=== PATIENT | male | born 1965 | race American Indian/Alaskan Native ===

== ENCOUNTER 2019-02-06 20:46 | Observation (INO) | payer MEDICARE, OTHER ==
--- NOTE | 2019-02-06 21:42 | Emergency Department Report ---
Blank Doc - Documentation Documentation: 53 y/o male with anemia recent kidney removal 2019, CKD, DM, Kidney CA. C/O s ob, weakness, pale sob
[2019-02-06 21:58] LABS: Basophils # (Auto) 0.1 K/mm3 (0.0-0.1); Basophils % (Auto) 0.9 % (0.0-1.8); Eosinophils # (Auto) 0.1 K/mm3 (0.0-0.4); Eosinophils % (Auto) 2.1 % (0.0-4.3); Hematocrit 22.2 % (35.5-45.6); Hemoglobin 7.4 gm/dl (11.8-15.2); Lymphocytes # (Auto) 0.6 K/mm3 (1.2-5.4); Lymphocytes % (Auto) 8.6 % (13.4-35.0); Mean Corpuscular HGB Conc 33 % (32-34); Mean Corpuscular Volume 92 fl (84-94); Monocytes # (Auto) 0.6 K/mm3 (0.0-0.8); Monocytes % (Auto) 8.9 % (0.0-7.3); Platelet Count 191 K/mm3 (140-440); Red Blood Count 2.43 M/mm3 (3.65-5.03); Red Cell Distribution Width 19.8 % (13.2-15.2)
[2019-02-06 22:17] LABS: Alanine Aminotransferase 9 units/L (7-56); Albumin 4.4 g/dL (3.9-5); BUN/Creatinine Ratio 8; Blood Urea Nitrogen 72 mg/dL (9-20); Calcium 10.4 mg/dL (8.4-10.2); INR 1.09 (0.87-1.13)
[2019-02-06 22:18] LABS: Partial Thromboplastin Time 40.3 Sec. (24.2-36.6)
[2019-02-06] MEDS ORDERED: NACL 0.9% 500 ML 500 ML IV ONE (23:04)
--- NOTE | 2019-02-06 23:15 | Emergency Department Report ---
HPI - General Chief Complaint: Recheck/Abnormal Lab/Rx Time Seen by Provider: 02/06/19 22:48 - HPI HPI: Room 4 The patient is a 53-year-old male presenting with a chief complaint of weakness. The patient has a history of end-stage renal disease in addition to renal CA. The patient states since July she showed progressive weakness and dizziness. Patient admits to shortness of breath and intermittent chest pain but cannot remember the last time he had chest pain. The patient had blood drawn 2 days ago and received a call today from his assistant softball coach at his hemoglobin was 6.5. Location: [See above] Duration: Months Quality: Fatigue Severity: Moderate Modifying factors: [see above] Context: [see above] Mode of transportation: [not driving] ED Past Medical Hx - Past Medical History Hx Diabetes: Yes Hx Renal Disease: Yes (ESRD. Home hemodialysis) Hx of Cancer: Yes (renal CA) Additional medical history: Kidney [id number] - Surgical History Past Surgical History?: No Additional Surgical History: kidney, tonsillectomy, left rotator cuff,knee - Family History Family history: no significant - Social History Smoking Status: Never Smoker Substance Use Type: None (denies illicit drug use) ED Review of Systems ROS: Stated complaint: HEMOGLOBIN 6.5 Other details as noted in HPI Constitutional: weakness Eyes: denies: eye pain ENT: denies: throat pain Respiratory: shortness of breath Cardiovascular: chest pain Endocrine: no symptoms reported Gastrointestinal: denies: abdominal pain Genitourinary: denies: testicular pain Neurological: other (dizziness) Physical Exam - Physical Exam Vital Signs: Vital Signs 02/06/19 02/06/19 02/06/19 21:34 22:59 23:09 Temperature 98.9 F 97.6 F Pulse Rate 99 H 89 Respiratory 18 20 Rate Blood Pressure 172/79 Blood Pressure 194/82 [Right] O2 Sat by Pulse 95 99 99 Oximetry Physical Exam: GENERAL: The patient is well-developed well-nourished male lying on stretcher appearing fatigued. [] HEENT: Normocephalic. Atraumatic. Extraocular motions are intact. Patient has moist mucous membranes. NECK: Supple. Trachea midline CHEST/LUNGS: Clear to auscultation. There is no respiratory distress noted. HEART/CARDIOVASCULAR: Regular. There is no tachycardia. There is no gallop rub or murmur. ABDOMEN: Abdomen is soft, nontender. Patient has normal bowel sounds. There is no abdominal distention. SKIN: There is no rash. There is no edema. There is no diaphoresis. NEURO: The patient is awake, alert, and oriented. The patient is cooperative. The patient has normal speech MUSCULOSKELETAL: There is no evidence of acute injury. ED Course Vital Signs 02/06/19 02/06/19 02/06/19 21:34 22:59 23:09 Temperature 98.9 F 97.6 F Pulse Rate 99 H 89 Respiratory 18 20 Rate Blood Pressure 172/79 Blood Pressure 194/82 [Right] O2 Sat by Pulse 95 99 99 Oximetry - Consultations Consultation #1: 02/06/19 23:11 Nephrology paged ED Medical Decision Making - Lab Data Result diagrams: 02/06/19 21:47 02/06/19 21:47 Laboratory Tests 02/06/19 02/06/19 02/06/19 21:47 21:47 21:47 WBC 6.8 RBC 2.43 L Hgb 7.4 L Hct 22.2 L MCV 92 MCH 31 MCHC 33 RDW 19.8 H Plt Count 191 Lymph % (Auto) 8.6 L Dickinson % (Auto) 8.9 H Eos % (Auto) 2.1 Baso % (Auto) 0.9 Lymph # 0.6 L Dickinson # 0.6 Eos # 0.1 Baso # 0.1 Seg Neutrophils % 79.5 H Seg Neutrophils # 5.4 PT 14.8 INR 1.09 APTT 40.3 H Sodium 138 Potassium 5.3 H Chloride 91.9 L Carbon Dioxide 28 Anion Gap 23 BUN 72 H Creatinine 9.2 H Estimated GFR 6 BUN/Creatinine Ratio 8 Glucose 124 H Calcium 10.4 H Total Bilirubin 0.20 AST 10 ALT 9 Alkaline Phosphatase 90 Total Protein 7.3 Albumin 4.4 Albumin/Globulin Ratio 1.5 Blood Type Antibody Screen Crossmatch 02/06/19 21:47 WBC RBC Hgb Hct MCV MCH MCHC RDW Plt Count Lymph % (Auto) Dickinson % (Auto) Eos % (Auto) Baso % (Auto) Lymph # Dickinson # Eos # Baso # Seg Neutrophils % Seg Neutrophils # PT INR APTT Sodium Potassium Chloride Carbon Dioxide Anion Gap BUN Creatinine Estimated GFR BUN/Creatinine Ratio Glucose Calcium Total Bilirubin AST ALT Alkaline Phosphatase Total Protein Albumin Albumin/Globulin Ratio Blood Type A POSITIVE Antibody Screen Negative Crossmatch See Detail - Differential Diagnosis symptomatic anemia Critical care attestation.: If time is entered above; I have spent that time in minutes in the direct care of this critically ill patient, excluding procedure time. ED Disposition Clinical Impression: Symptomatic anemia, Hyperkalemia, End stage renal disease Disposition: OP ADMIT IP TO THIS HOSP Is pt being admited?: Yes Does the pt Need Aspirin: No Condition: Fair Time of Disposition: 23:48 (hospitalist notified (Dr. Elizabeth Kowalski))
[2019-02-06] MEDS ORDERED: NACL 0.9% 100 ML IV PRN (23:37)
[2019-02-06] MEDS ORDERED: NORCO 5/325 PO ONE (23:39)
--- NOTE | 2019-02-06 23:42 | History and Physical Report ---
History of Present Illness Date of examination: 02/06/19 History of present illness: 53-year-old male with a history of end-stage renal disease on dialysis every other day, hypertension, history of renal and colon cancer was sent to the emergency room by the nephrologists for hemoglobin of 6.5, blood work was drawn on Wednesday. He is chronic generalized weakness, tiredness. Also complaining of chest pain in the epigastric area, less than 1 day, no radiation, intensity 4/10, no radiation,he had a stress test this year which was negative.Review of systems Constitutional: no weight loss, chills, fever Ears, eyes, nose, mouth and throat: no nasal congestion, no nasal discharge, no sinus pressure, no vision change, no red eye. Neck: No neck pain or rigidity. Cardiovascular: no palpitations, chest pain Respiratory: no cough, shortness of breath Gastrointestinal: no hematochezia, abdominal pain Genitourinary : no frequency , no hematuria Musculoskeletal: no joint swelling or muscle ache Integumentary: no rash, no pruritis Neurological: no parathesias, no focal weakness Endocrine: no cold or heat intolerance, no polyuria or polydipsia Hematologic/Lymphatic: no easy bruising, no easy bleeding, no gland swelling Allergic/Immunologic: no urticaria, no angioedema. PAST MEDICAL HISTORY:end-stage renal disease on dialysis every other day, hypertension, history of renal and colon cancer PAST SURGICAL HISTORY: Left nephrectomy, tonsillectomy SOCIAL HISTORY: Denies alcohol, drugs, tobacco FAMILY HISTORY: Hypertension Medications and Allergies Allergies Allergy/AdvReac Type Severity Reaction Status Date / Time lisinopril Allergy Unknown Verified 02/06/19 20:59 metformin [From Glucophage] Allergy Diarrhea Verified 02/06/19 20:59 Home Medications Medication Instructions Recorded Confirmed Last Taken Type Calcitriol [Rocaltrol] 0.5 mcg PO BID 02/07/19 02/07/19 Unknown History Cholecalciferol (Vitamin D3) 2,000 unit PO BID 02/07/19 02/07/19 Unknown History [Vitamin D3 2,000 UNIT CHEW TAB] Clonidine HCl [Kapvay] 0.1 mg PO ONCE 02/07/19 02/07/19 Unknown History Gabapentin [Neurontin] 300 mg PO BID 02/07/19 02/07/19 Unknown History Hydroxychloroquine [Plaquenil] 200 mg PO QDAY 02/07/19 02/07/19 Unknown History NIFEdipine [Adalat cc] 60 mg PO DAILY 02/07/19 02/07/19 Unknown History Ondansetron [Zofran ODT TAB] 8 mg PO PRN PRN 02/07/19 02/07/19 Unknown History Oxycodone HCl 10 mg PO Q6HR PRN 02/07/19 02/07/19 Unknown History Sevelamer Carbonate [Renvela] 2.4 gm PO TIDWM 02/07/19 02/07/19 Unknown History Torsemide [Demadex] 100 mg PO BID 02/07/19 02/07/19 Unknown History hydrALAZINE [Apresoline TAB] 10 mg PO BID 02/07/19 02/07/19 Unknown History Active Meds: Active Medications Sodium Chloride (Nacl 0.9%) 100 mls @ 999 mls/hr IV ONUR PRN PRN Reason: Hypotension Exam - Physical Exam Narrative exam: General Apperance: The patient lying in bed, breathing comfortable HEENT: Normocephalic, atraumatic. Pupils equally round and reactive to light, EOMI, no sclericterus or JVD or thyromegaly or nodule. , no carotid bruit, mucous membranes moist, no exudate or erythema Heart: S1-S2, regular is rhythm Lungs: Clear to auscultation bilaterally, breathing comfortable Abdomen: Positive bowel sounds, soft, nontender, nondistended, no organomegaly Extremities: No edema cyanosis clubbing Skin: no rash, nodule, warm and dry Neuro: cranial nerves 2-12 intact, speech is fluent, motor/sensory intact - Constitutional Vitals: Temp Pulse Resp BP Pulse Ox 97.6 F 89 20 194/82 99 02/06/19 22:59 02/06/19 22:59 02/06/19 22:59 02/06/19 22:59 02/06/19 23:09 Results - Labs CBC & Chem 7: 02/06/19 21:47 02/06/19 21:47 Labs: Abnormal lab results 02/06/19 02/06/19 02/06/19 Range/Units 21:47 21:47 21:47 RBC 2.43 L (3.65-5.03) M/mm3 Hgb 7.4 L (11.8-15.2) gm/dl Hct 22.2 L (35.5-45.6) % RDW 19.8 H (13.2-15.2) % Lymph % (Auto) 8.6 L (13.4-35.0) % [place] % (Auto) 8.9 H (0.0-7.3) % Lymph # 0.6 L (1.2-5.4) K/mm3 Seg Neutrophils % 79.5 H (40.0-70.0) % APTT 40.3 H (24.2-36.6) Sec. Potassium 5.3 H (3.6-5.0) mmol/L Chloride 91.9 L (98-107) mmol/L BUN 72 H (9-20) mg/dL Creatinine 9.2 H (0.8-1.5) mg/dL Glucose 124 H (75-100) mg/dL Calcium 10.4 H (8.4-10.2) mg/dL Crossmatch 02/06/19 Range/Units 21:47 RBC (3.65-5.03) M/mm3 Hgb (11.8-15.2) gm/dl Hct (35.5-45.6) % RDW (13.2-15.2) % Lymph % (Auto) (13.4-35.0) % [place] % (Auto) (0.0-7.3) % Lymph # (1.2-5.4) K/mm3 Seg Neutrophils % (40.0-70.0) % APTT (24.2-36.6) Sec. Potassium (3.6-5.0) mmol/L Chloride (98-107) mmol/L BUN (9-20) mg/dL Creatinine (0.8-1.5) mg/dL Glucose (75-100) mg/dL Calcium (8.4-10.2) mg/dL Crossmatch See Detail Assessment and Plan Assessment Hypertension malignant, uncontrolled Symptomatic anemia End-stage renal disease on dialysis History of renal and colon cancer Plan Continue Cardene drip Check enzymes, consult cardiology, critical care, Consult renal, getting 1 unit of blood DVT prophylaxis
[2019-02-06] MEDS ORDERED: KIONEX PO ONE (23:46)
[2019-02-07] MEDS ORDERED: APRESOLINE ONE ×2 (00:20→13:42)
[2019-02-07] MEDS ORDERED: APRESOLINE IV ONE (00:20)
[2019-02-07] MEDS ORDERED: KIONEX ONE ×2 (00:52)
[2019-02-07] MEDS ORDERED: CARDENE 50 MG in NACL 0.9% 250ML 230 ML IV SCH (02:00)
[2019-02-07] MEDS ORDERED: PERCOCET 5/325 ONE ×2 (04:49→10:24)
[2019-02-07] MEDS: PERCOCET 5/325 PO PRN ×2 (04:54→10:20)
[2019-02-07 07:38] LABS: Creatine Kinase MB 4.4 ng/mL (0.0-4.0)
[2019-02-07 08:36] LABS: Chol/HDL Ratio 1.88 %
[2019-02-07] MEDS ORDERED: NACL 0.9% 100 ML IV PRN (10:05)
[2019-02-07 10:55] LABS: Creatine Kinase MB 15.1 ng/mL (0.0-4.0)
--- NOTE | 2019-02-07 11:04 | Consultation ---
History of Present Illness - Reason for Consult Consult date: 02/07/19 end stage renal disease, hyperkalemia Requesting physician: MATT ENGEL - History of Present Illness This is 53-year-old male with past medical history of HTN, ESRD on HD (currently on HHD) started about 5 years ago, when he developed ALFONSO/ATN in the setting of food poisoning and severe diarrheal disease, anemia of ESRD, also history of renal CA s/p L nephrectomy, who was sent by me to the emergency room after his monthly labs showed decreased hemoglobin of 6.5 and pt was complaining of chronic intermittent chest pain and generalized weakness. in ER pt was found to have hb of 7.4. because of above symptoms pt was transfused with 1PRBC. Since Trop was mildly elevated at 0.461 pt was hospitalized for further cardiac work up. Labs showed elevated K at 5.3 along with BUN/Cr at 72/9.2 for which renal consult is requested. Pt recently transferred to [facility], pt currently performs home HD on schedule. Denies fever, chills, nausea, vomiting, dysuria, rash, headaches, blurry vision. Past History Past Medical History: anemia, ESRD, hypertension, renal failure Past Surgical History: tonsillectomy, Other (L nephrectomy, AVF placement ) Social history: denies: smoking, alcohol abuse, prescription drug abuse, IV drug use Family history: hypertension Medications and Allergies Allergies Allergy/AdvReac Type Severity Reaction Status Date / Time lisinopril Allergy Unknown Verified 02/06/19 20:59 metformin [From Glucophage] Allergy Diarrhea Verified 02/06/19 20:59 Home Medications Medication Instructions Recorded Confirmed Last Taken Type Calcitriol [Rocaltrol] 0.5 mcg PO BID 02/07/19 02/07/19 Unknown History Cholecalciferol (Vitamin D3) 2,000 unit PO BID 02/07/19 02/07/19 Unknown History [Vitamin D3 2,000 UNIT CHEW TAB] Clonidine HCl [Kapvay] 0.1 mg PO ONCE 02/07/19 02/07/19 Unknown History Gabapentin [Neurontin] 300 mg PO BID 02/07/19 02/07/19 Unknown History Hydroxychloroquine [Plaquenil] 200 mg PO QDAY 02/07/19 02/07/19 Unknown History NIFEdipine [Adalat cc] 60 mg PO DAILY 02/07/19 02/07/19 Unknown History Ondansetron [Zofran ODT TAB] 8 mg PO PRN PRN 02/07/19 02/07/19 Unknown History Sevelamer Carbonate [Renvela] 2.4 gm PO TIDWM 02/07/19 02/07/19 Unknown History Torsemide [Demadex] 100 mg PO BID 02/07/19 02/07/19 Unknown History hydrALAZINE [Apresoline TAB] 10 mg PO BID 02/07/19 02/07/19 Unknown History oxyCODONE ER [OxyCONTIN ER TAB] 10 mg PO Q6HR PRN 02/07/19 02/07/19 Unknown History Active Meds: Active Medications Sodium Chloride (Nacl 0.9%) 100 mls @ 999 mls/hr IV ONUR PRN PRN Reason: Hypotension Nicardipine HCl 50 mg/ Sodium (Chloride) 250 mls @ 25 mls/hr IV TITR MARTA; Protocol Last Admin: 02/07/19 03:41 Dose: 5 mg/hr, 25 mls/hr Documented by: Oxycodone/Acetaminophen (Percocet 5/325) 1 tab PO Q4H PRN PRN Reason: Pain, Moderate (4-6) Last Admin: 02/07/19 10:20 Dose: 1 tab Documented by: Review of Systems All systems: negative Constitutional: fatigue, weakness, malaise Cardiovascular: chest pain, dyspnea on exertion Exam - Vital Signs Vital signs: Vital Signs Temp Pulse Resp BP Pulse Ox 98.9 F 99 H 18 172/79 95 02/06/19 21:34 02/06/19 21:34 02/06/19 21:34 02/06/19 21:34 02/06/19 21:34 - General Appearance General appearance: well-developed, well-nourished, appears stated age EENT: ATNC, PERRL, mucous membranes moist Neck: Present: neck supple Respiratory: Clear to Ascultation Heart: regular, S1S2 Gastrointestinal: Present: normoactive bowel sounds Integumentary: no rash, other (no edema ) Neurologic: no focal deficit, alert and oriented x3, strength 5/5, CN 3-12 intact Psychiatric: mood/affect appropriate, cooperative Results - Lab Results 02/06/19 21:47 02/06/19 21:47 Most recent lab results Calcium 10.4 mg/dL (8.4-10.2) H 02/06/19 21:47 Laboratory Tests 02/06/19 02/06/19 02/07/19 21:47 21:47 06:57 PT 14.8 INR 1.09 APTT 40.3 H Estimated GFR 6 BUN/Creatinine Ratio 8 Glucose 124 H Calcium 10.4 H Total Bilirubin 0.20 AST 10 ALT 9 Alkaline Phosphatase 90 Total Creatine Kinase 96 CK-MB (CK-2) 4.4 H CK-MB (CK-2) Rel Index 4.5 H Troponin T 0.461 H* Total Protein 7.3 Albumin 4.4 Albumin/Globulin Ratio 1.5 Triglycerides 80 Cholesterol 143 LDL Cholesterol Direct 56 HDL Cholesterol 76 H Cholesterol/HDL Ratio 1.88 02/07/19 10:13 PT INR APTT Estimated GFR BUN/Creatinine Ratio Glucose Calcium Total Bilirubin AST ALT Alkaline Phosphatase Total Creatine Kinase 363 H CK-MB (CK-2) 15.1 H CK-MB (CK-2) Rel Index 4.1 H Troponin T Pending Total Protein Albumin Albumin/Globulin Ratio Triglycerides Cholesterol LDL Cholesterol Direct HDL Cholesterol Cholesterol/HDL Ratio Assessment and Plan - Patient Problems (1) Hyperkalemia Current Visit: Yes Status: Acute Plan to address problem: s/p medical treatment with Kayexalate, arranged HD this AM with 2 K bath. cont 2g K renal diet (2) End stage renal disease Current Visit: Yes Status: Acute Plan to address problem: cont HD on TTS schedule while inpatient. (3) Symptomatic anemia Current Visit: Yes Status: Acute Plan to address problem: s/p 1PRBC, cont EPO with HD (4) Secondary hyperparathyroidism of renal origin Current Visit: Yes Status: Acute Plan to address problem: cont sevelamer 2400mg po tid AC, will hold calcitriol for now given presence of mild hypercalcemia. (5) Chest pain Current Visit: Yes Status: Acute Plan to address problem: in the setting of symptomatic anemia. however troponin mildly elevated, further work up as per cardiology
[2019-02-07] MEDS ORDERED: APRESOLINE IV PRN (11:54)
[2019-02-07] MEDS ORDERED: APRESOLINE PO SCH ×2 (12:00→22:00)
[2019-02-07] MEDS ORDERED: SEVELAMER CARBONATE 2.4 GM PO SCH (12:00)
[2019-02-07] MEDS: OxyCONTIN PO PRN ×2 (12:10→21:55)
[2019-02-07] MEDS: RENVELA PO SCH ×3 (12:15→19:14)
--- NOTE | 2019-02-07 13:05 | Consultation ---
History of Present Illness Consult date: 02/07/19 Requesting physician: SANTOS YIN Consult reason: chest pain History of present illness: The pt is 53-year-old male with past medical history of HTN, ESRD on HD started about 5 years ago, anemia of ESRD, also history of renal CA s/p L nephrectomy. He is previously unknown to our practice. He presented for evaluation of anemia. His piledriver carpenter is Dr. Perez and he was noted to have Hgb 6.5 on office labwork and was referred to ED for further eval/management. Pt c/o generalized weakness and lethargy for the past several days. He also reports intermittent chest pain and SOB which has been ongoing for several months. Pt reports that he underwent stress test for evaluaiton of chest pain last year in [place], [place], and he was told this test was normal. He also reports that he was recently evaluated for chest pain at [facility] but review of [facility] records shows pt presented and left AMA from [facility] on 01/10/2019. Past History Past Medical History: anemia, ESRD, hypertension, renal failure Past Surgical History: tonsillectomy, Other (L nephrectomy, AVF placement ) Social history: denies: smoking, alcohol abuse, prescription drug abuse, IV drug use Family history: hypertension Medications and Allergies Allergies Allergy/AdvReac Type Severity Reaction Status Date / Time lisinopril Allergy Unknown Verified 02/06/19 20:59 metformin [From Glucophage] Allergy Diarrhea Verified 02/06/19 20:59 Home Medications Medication Instructions Recorded Confirmed Last Taken Type Calcitriol [Rocaltrol] 0.5 mcg PO BID 02/07/19 02/07/19 Unknown History Cholecalciferol (Vitamin D3) 2,000 unit PO BID 02/07/19 02/07/19 Unknown History [Vitamin D3 2,000 UNIT CHEW TAB] Clonidine HCl [Kapvay] 0.1 mg PO ONCE 02/07/19 02/07/19 Unknown History Gabapentin [Neurontin] 300 mg PO BID 02/07/19 02/07/19 Unknown History Hydroxychloroquine [Plaquenil] 200 mg PO QDAY 02/07/19 02/07/19 Unknown History NIFEdipine [Adalat cc] 60 mg PO DAILY 02/07/19 02/07/19 Unknown History Ondansetron [Zofran ODT TAB] 8 mg PO PRN PRN 02/07/19 02/07/19 Unknown History Sevelamer Carbonate [Renvela] 2.4 gm PO TIDWM 02/07/19 02/07/19 Unknown History Torsemide [Demadex] 100 mg PO BID 02/07/19 02/07/19 Unknown History hydrALAZINE [Apresoline TAB] 10 mg PO BID 02/07/19 02/07/19 Unknown History oxyCODONE ER [OxyCONTIN ER TAB] 10 mg PO Q6HR PRN 02/07/19 02/07/19 Unknown History Active Meds: Active Medications Calcitriol (Rocaltrol) 0.5 mcg PO BID MARTA Gabapentin (Neurontin) 300 mg PO BID MARTA Hydralazine HCl (Apresoline) 10 mg IV Q4HR PRN PRN Reason: HTN>155/90 Hydralazine HCl (Apresoline) 50 mg PO Q8HR MARTA Hydroxychloroquine Sulfate (Plaquenil) 200 mg PO QDAY MARTA Sodium Chloride (Nacl 0.9%) 100 mls @ 999 mls/hr IV ONUR PRN PRN Reason: Hypotension Nicardipine HCl 50 mg/ Sodium (Chloride) 250 mls @ 25 mls/hr IV TITR MARTA; Protocol Last Admin: 02/07/19 03:41 Dose: 5 mg/hr, 25 mls/hr Documented by: Nifedipine (Procardia Xl) 60 mg PO QDAY MARTA Oxycodone HCl (Oxycontin) 10 mg PO Q6HR PRN PRN Reason: Pain , Severe (7-10) Oxycodone/Acetaminophen (Percocet 5/325) 1 tab PO Q4H PRN PRN Reason: Pain, Moderate (4-6) Last Admin: 02/07/19 10:20 Dose: 1 tab Documented by: Sevelamer Carbonate (Renvela) 2,400 mg PO AC MARTA Sevelamer Carbonate (Renvela) 2,400 mg PO AC MARTA Torsemide (Demadex) 100 mg PO BID [facility] Review of Systems Constitutional: fatigue, weakness Ears, nose, mouth and throat: no ear pain, no nose pain, no sinus pressure, no sinus pain Cardiovascular: chest pain, shortness of breath, dyspnea on exertion, high blood pressure, no orthopnea, no palpitations, no rapid/irregular heart beat, no edema, no syncope, no lightheadedness Respiratory: shortness of breath, dyspnea on exertion, no cough, no congestion, no wheezing, no pain on inspiration Gastrointestinal: no abdominal pain, no nausea, no vomiting, no diarrhea, no constipation Genitourinary Male: no dysuria, no hematuria, no flank pain, no discharge, no urinary frequency, no urinary hesitancy Musculoskeletal: no neck stiffness, no neck pain, no shooting arm pain, no arm numbness/tingling, no low back pain, no shooting leg pain Integumentary: no rash, no pruritis, no redness, no sores, no wounds Neurological: no head injury, no paralysis, no weakness, no parathesias, no numbness, no tingling, no seizures, no syncope Psychiatric: no anxiety Endocrine: no cold intolerance, no heat intolerance Hematologic/Lymphatic: no easy bruising, no easy bleeding Allergic/Immunologic: no urticaria, no wheezing Physical Examination Vital Signs Temp Pulse Resp BP Pulse Ox 98.9 F 99 H 18 172/79 95 02/06/19 21:34 02/06/19 21:34 02/06/19 21:34 02/06/19 21:34 02/06/19 21:34 General appearance: no acute distress HEENT: Positive: PERRL, Normocephaly, Mucus Membranes Moist Neck: Positive: neck supple, trachea midline Cardiac: Positive: Reg Rate and Rhythm, S1/S2 Results 02/06/19 21:47 02/06/19 21:47 Cardiac Enzymes 02/06/19 02/07/19 02/07/19 Range/Units 21:47 06:57 10:13 AST 10 (5-40) units/L CK-MB (CK-2) 4.4 H 15.1 H (0.0-4.0) ng/mL Coagulation 02/06/19 Range/Units 21:47 PT 14.8 (12.2-14.9) Sec. INR 1.09 (0.87-1.13) APTT 40.3 H (24.2-36.6) Sec. Lipids 02/07/19 Range/Units 06:57 Triglycerides 80 (2-149) mg/dL Cholesterol 143 (50-199) mg/dL HDL Cholesterol 76 H (40-59) mg/dL Cholesterol/HDL Ratio 1.88 % CBC 02/06/19 Range/Units 21:47 WBC 6.8 (4.5-11.0) K/mm3 RBC 2.43 L (3.65-5.03) M/mm3 Hgb 7.4 L (11.8-15.2) gm/dl Hct 22.2 L (35.5-45.6) % Plt Count 191 (140-440) K/mm3 Lymph # 0.6 L (1.2-5.4) K/mm3 Finney # 0.6 (0.0-0.8) K/mm3 Eos # 0.1 (0.0-0.4) K/mm3 Baso # 0.1 (0.0-0.1) K/mm3 Comprehensive Metabolic Panel 02/06/19 Range/Units 21:47 Sodium 138 (137-145) mmol/L Potassium 5.3 H (3.6-5.0) mmol/L Chloride 91.9 L (98-107) mmol/L Carbon Dioxide 28 (22-30) mmol/L BUN 72 H (9-20) mg/dL Creatinine 9.2 H (0.8-1.5) mg/dL Glucose 124 H (75-100) mg/dL Calcium 10.4 H (8.4-10.2) mg/dL AST 10 (5-40) units/L ALT 9 (7-56) units/L Alkaline Phosphatase 90 (35-129) units/L Total Protein 7.3 (6.3-8.2) g/dL Albumin 4.4 (3.9-5) g/dL - Imaging and Cardiology Echo: pending EKG: report reviewed, image reviewed EKG interpretations - Telemetry EKG Rhythm: Sinus Rhythm Assessment and Plan Troponin elevation pattern appears c/w NSTEMI type II. Pt denies any current chest pain. Obtain ECG. Cont to trend Randall. Obtain echo. Optimize anti- hypertensive regimen and wean cardene gtt. Plan for lexiscan MPI stress test once medically stabilized. The patient has been seen in conjunction with Dr. Wooten who agrees with the assessment and plan of care. - Patient Problems (1) Symptomatic anemia Current Visit: Yes Status: Acute (2) Chest pain Current Visit: Yes Status: Acute (3) Dyspnea Current Visit: Yes Status: Acute (4) Hypertensive emergency Current Visit: Yes Status: Acute (5) NSTEMI (non-ST elevated myocardial infarction) Current Visit: Yes Status: Acute Plan to address problem: type II (6) End stage renal disease Current Visit: Yes Status: Chronic (7) Hyperkalemia Current Visit: Yes Status: Acute
[2019-02-07] MEDS: APRESOLINE PO SCH ×2 (13:44→21:58)
[2019-02-07 13:48] LABS: Hepatitis B Surface Antigen Non-Reactive (Negative); Hepatitis C Virus Antibody Non-Reactive (NonReactive)
--- NOTE | 2019-02-07 14:02 | Progress Note ---
Assessment and Plan Assessment and plan: --Hypertensive emergency; requesting Cardene drip Pressures reasonable level. Resume all the home antihypertensives, titrate and DC Cardene drip --Positive cardiac enzymes/non-ST elevation MS Probably nonspecific, secondary to end-stage renal disease However patient has multiple risk factors ,need to rule out acute coronary syndrome, cardiology following --End- stage renal disease on hemodialysis; Hemodialysis per schedule, nephrology following --Peripheral neuropathy; continue gabapentin and supportive care. --DVT prophylaxis; heparin and renal dose --Anemia of chronic kidney disease; status post transfusion, closely monitor H&H and transfuse additional as needed --Obesity; BMI 31.4, advised weight reduction when medically stable --Full CODE STATUS Monitor closely and adjust management as needed Assessment and recommendations noted and appreciated Plan of care reviewed with the patient and his nurse History Interval history: Patient seen and examined medical records reviewed Admitted with hypertensive emergency on Cardene drip Blood pressures are reasonable level Titrated DC Cardizem drip, resume home antihypertensives Patient denies any chest pain or shortness of breath Alert awake oriented 3 Vital signs noted Hospitalist Physical - Constitutional Vitals: Temp Pulse Resp BP Pulse Ox 97.2 F L 96 H 18 174/74 97 02/07/19 09:15 02/07/19 12:45 02/07/19 12:45 02/07/19 12:45 02/07/19 09:00 General appearance: Present: no acute distress, well-nourished - EENT Eyes: Present: PERRL, EOM intact - Neck Neck: Present: supple, normal ROM - Respiratory Respiratory effort: normal Respiratory: bilateral: diminished, negative: rales, rhonchi, wheezing - Cardiovascular Rhythm: regular Heart Sounds: Present: S1 & S2 - Extremities Extremities: no ischemia, No edema - Abdominal General gastrointestinal: soft, non-tender, non-distended, normal bowel sounds - Integumentary Integumentary: Present: clear, warm - Psychiatric Psychiatric: appropriate mood/affect, cooperative - Neurologic Neurologic: moves all extremities Results - Labs CBC & Chem 7: 02/06/19 21:47 02/06/19 21:47 Labs: Laboratory Last Values WBC 6.8 K/mm3 (4.5-11.0) 02/06/19 21:47 RBC 2.43 M/mm3 (3.65-5.03) L 02/06/19 21:47 Hgb 7.4 gm/dl (11.8-15.2) L 02/06/19 21:47 Hct 22.2 % (35.5-45.6) L 02/06/19 21:47 MCV 92 fl (84-94) 02/06/19 21:47 MCH 31 pg (28-32) 02/06/19 21:47 MCHC 33 % (32-34) 02/06/19 21:47 RDW 19.8 % (13.2-15.2) H 02/06/19 21:47 Plt Count 191 K/mm3 (140-440) 02/06/19 21:47 Lymph % (Auto) 8.6 % (13.4-35.0) L 02/06/19 21:47 [place] % (Auto) 8.9 % (0.0-7.3) H 02/06/19 21:47 Eos % (Auto) 2.1 % (0.0-4.3) 02/06/19 21:47 Baso % (Auto) 0.9 % (0.0-1.8) 02/06/19 21:47 Lymph # 0.6 K/mm3 (1.2-5.4) L 02/06/19 21:47 [place] # 0.6 K/mm3 (0.0-0.8) 02/06/19 21:47 Eos # 0.1 K/mm3 (0.0-0.4) 02/06/19 21:47 Baso # 0.1 K/mm3 (0.0-0.1) 02/06/19 21:47 Seg Neutrophils % 79.5 % (40.0-70.0) H 02/06/19 21:47 Seg Neutrophils # 5.4 K/mm3 (1.8-7.7) 02/06/19 21:47 PT 14.8 Sec. (12.2-14.9) 02/06/19 21:47 INR 1.09 (0.87-1.13) 02/06/19 21:47 APTT 40.3 Sec. (24.2-36.6) H 02/06/19 21:47 Sodium 138 mmol/L (137-145) 02/06/19 21:47 Potassium 5.3 mmol/L (3.6-5.0) H 02/06/19 21:47 Chloride 91.9 mmol/L (98-107) L 02/06/19 21:47 Carbon Dioxide 28 mmol/L (22-30) 02/06/19 21:47 Anion Gap 23 mmol/L 02/06/19 21:47 BUN 72 mg/dL (9-20) H 02/06/19 21:47 Creatinine 9.2 mg/dL (0.8-1.5) H 02/06/19 21:47 Estimated GFR 6 ml/min 02/06/19 21:47 BUN/Creatinine Ratio 8 % 02/06/19 21:47 Glucose 124 mg/dL (75-100) H 02/06/19 21:47 Calcium 10.4 mg/dL (8.4-10.2) H 02/06/19 21:47 Total Bilirubin 0.20 mg/dL (0.1-1.2) 02/06/19 21:47 AST 10 units/L (5-40) 02/06/19 21:47 ALT 9 units/L (7-56) 02/06/19 21:47 Alkaline Phosphatase 90 units/L (35-129) 02/06/19 21:47 Total Creatine Kinase 363 units/L (55-170) H 02/07/19 10:13 CK-MB (CK-2) 15.1 ng/mL (0.0-4.0) H 02/07/19 10:13 CK-MB (CK-2) Rel Index 4.1 (0-4) H 02/07/19 10:13 Troponin T 0.251 ng/mL (0.00-0.029) H* D 02/07/19 10:13 Total Protein 7.3 g/dL (6.3-8.2) 02/06/19 21:47 Albumin 4.4 g/dL (3.9-5) 02/06/19 21:47 Albumin/Globulin Ratio 1.5 % 02/06/19 21:47 Triglycerides 80 mg/dL (2-149) 02/07/19 06:57 Cholesterol 143 mg/dL (50-199) 02/07/19 06:57 LDL Cholesterol Direct 56 mg/dL (50-130) 02/07/19 06:57 HDL Cholesterol 76 mg/dL (40-59) H 02/07/19 06:57 Cholesterol/HDL Ratio 1.88 % 02/07/19 06:57 Hepatitis A IgM Ab Non-reactive (NonReactive) 02/07/19 11:44 Hep Bs Antigen Non-reactive (Negative) 02/07/19 11:44 Hep B Core IgM Ab Non-reactive (NonReactive) 02/07/19 11:44 Hepatitis C Antibody Non-reactive (NonReactive) 02/07/19 11:44 Blood Type A POSITIVE 02/06/19 21:47 Antibody Screen Negative 02/06/19 21:47 Crossmatch See Detail 02/06/19 21:47 Active Medications - Current Medications Current Medications: Generic Name Dose Route Start Last Admin Trade Name Freq PRN Reason Stop Dose Admin Calcitriol 0.5 mcg 02/07/19 22:00 Rocaltrol PO BID MARTA Gabapentin 300 mg 02/07/19 22:00 Neurontin PO BID MARTA Hydralazine HCl 10 mg 02/07/19 11:54 Apresoline IV Q4HR PRN HTN>155/90 Hydralazine HCl 50 mg 02/07/19 14:00 02/07/19 13:44 Apresoline PO 50 mg Q8HR MARTA Administration Hydroxychloroquine Sulfate 200 mg 02/08/19 10:00 Plaquenil PO QDAY MARTA Sodium Chloride 100 mls @ 999 mls/hr 02/06/19 23:37 Nacl 0.9% IV ONUR PRN Hypotension Nicardipine HCl 50 mg/ Sodium 250 mls @ 25 mls/hr 02/07/19 02:00 02/07/19 13:05 Chloride IV 5 mg/hr TITR MARTA 25 mls/hr Titration Protocol 5 MG/HR Nifedipine 60 mg 02/08/19 10:00 Procardia Xl PO QDAY MARTA Oxycodone HCl 10 mg 02/07/19 11:50 02/07/19 12:10 Oxycontin PO 10 mg Q6HR PRN Administration Pain , Severe (7-10) Oxycodone/Acetaminophen 1 tab 02/07/19 04:44 02/07/19 10:20 Percocet 5/325 PO 1 tab Q4H PRN Administration Pain, Moderate (4-6) Sevelamer Carbonate 2,400 mg 02/07/19 11:30 02/07/19 12:15 Renvela PO 2,400 mg AC MARTA Administration Sevelamer Carbonate 2,400 mg 02/07/19 16:30 Renvela PO AC AMRTA Torsemide 100 mg 02/07/19 22:00 Demadex PO BID MARTA
[2019-02-07] MEDS ORDERED: CATAPRES ONE (15:59)
[2019-02-07] MEDS: CATAPRES PO SCH ×2 (16:05→23:00)
[2019-02-07] MEDS: ROCALTROL PO SCH (21:57)
[2019-02-07] MEDS: NEURONTIN PO SCH (21:57)
[2019-02-07] MEDS: DEMADEX PO SCH (22:25)
[2019-02-08] MEDS: OxyCONTIN PO PRN (05:36)
[2019-02-08 06:30] LABS: Basophils # (Auto) 0.1 K/mm3 (0.0-0.1); Basophils % (Auto) 0.8 % (0.0-1.8); Eosinophils # (Auto) 0.3 K/mm3 (0.0-0.4); Eosinophils % (Auto) 3.8 % (0.0-4.3); Hematocrit 25.3 % (35.5-45.6); Hemoglobin 8.3 gm/dl (11.8-15.2); Lymphocytes # (Auto) 0.9 K/mm3 (1.2-5.4); Lymphocytes % (Auto) 10.9 % (13.4-35.0); Mean Corpuscular HGB Conc 33 % (32-34); Mean Corpuscular Volume 93 fl (84-94); Monocytes # (Auto) 0.8 K/mm3 (0.0-0.8); Monocytes % (Auto) 10.7 % (0.0-7.3); Platelet Count 182 K/mm3 (140-440); Red Blood Count 2.72 M/mm3 (3.65-5.03); Red Cell Distribution Width 18.8 % (13.2-15.2)
[2019-02-08] MEDS: APRESOLINE PO SCH ×3 (06:35→23:03)
[2019-02-08] MEDS: CATAPRES PO SCH ×2 (06:36→15:59)
[2019-02-08 06:55] LABS: Albumin 3.7 g/dL (3.9-5); Calcium 10.4 mg/dL (8.4-10.2)
[2019-02-08] MEDS: RENVELA PO SCH ×5 (07:30→15:59)
[2019-02-08] MEDS ORDERED: NON-FORMULARY (Nifedipine [Adalat Cc] 60 MG) PO SCH (10:00)
--- NOTE | 2019-02-08 10:46 | Progress Note ---
Assessment and Plan Assessment and plan: --Hypertensive emergency; s/p Cardene drip Pressures reasonable level. Resume all the home antihypertensives, titrate and DC Cardene drip --Positive cardiac enzymes/non-ST elevation MD Probably nonspecific, secondary to end-stage renal disease However patient has multiple risk factors ,need to rule out acute coronary syndrome, cardiology schedule stress test tomorrow, abnormal findings on echocardiogram Cardiology advised outpatient MANUELA upon discharge --End- stage renal disease on hemodialysis; Hemodialysis per schedule, nephrology following --Peripheral neuropathy; continue gabapentin and supportive care. --DVT prophylaxis; heparin and renal dose --Anemia of chronic kidney disease; status post transfusion, closely monitor H&H and transfuse additional as needed --Obesity; BMI 31.4, advised weight reduction when medically stable --Full CODE STATUS Monitor closely and adjust management as needed Assessment and recommendations noted and appreciated Plan of care reviewed with the patient and his nurse History Interval history: Patient seen and examined medical records reviewed Diffuse slightly better however very upset about his heart findings that director hematology discussed with him Patient is scheduled for stress test tomorrow Blood pressures are still uncontrolled as he is refusing some medications Denies chest pain or shortness of breath Vital signs noted Hospitalist Physical - Constitutional Vitals: Temp Pulse Resp BP Pulse Ox 97.8 F 98 H 20 151/76 96 02/08/19 05:20 02/08/19 08:29 02/08/19 08:29 02/08/19 05:20 02/08/19 08:29 General appearance: Present: no acute distress, well-nourished - EENT Eyes: Present: PERRL, EOM intact - Neck Neck: Present: supple, normal ROM - Respiratory Respiratory effort: normal Respiratory: bilateral: diminished, negative: rales, rhonchi, wheezing - Cardiovascular Rhythm: regular Heart Sounds: Present: S1 & S2 - Extremities Extremities: no ischemia, No edema - Abdominal General gastrointestinal: soft, non-tender, non-distended, normal bowel sounds - Integumentary Integumentary: Present: clear, warm - Psychiatric Psychiatric: appropriate mood/affect, cooperative - Neurologic Neurologic: CNII-XII intact, moves all extremities Results - Labs CBC & Chem 7: 02/08/19 06:11 02/08/19 06:11 Labs: Laboratory Last Values WBC 7.9 K/mm3 (4.5-11.0) 02/08/19 06:11 RBC 2.72 M/mm3 (3.65-5.03) L 02/08/19 06:11 Hgb 8.3 gm/dl (11.8-15.2) L 02/08/19 06:11 Hct 25.3 % (35.5-45.6) L 02/08/19 06:11 MCV 93 fl (84-94) 02/08/19 06:11 MCH 31 pg (28-32) 02/08/19 06:11 MCHC 33 % (32-34) 02/08/19 06:11 RDW 18.8 % (13.2-15.2) H 02/08/19 06:11 Plt Count 182 K/mm3 (140-440) 02/08/19 06:11 Lymph % (Auto) 10.9 % (13.4-35.0) L 02/08/19 06:11 [place] % (Auto) 10.7 % (0.0-7.3) H 02/08/19 06:11 Eos % (Auto) 3.8 % (0.0-4.3) 02/08/19 06:11 Baso % (Auto) 0.8 % (0.0-1.8) 02/08/19 06:11 Lymph # 0.9 K/mm3 (1.2-5.4) L 02/08/19 06:11 [place] # 0.8 K/mm3 (0.0-0.8) 02/08/19 06:11 Eos # 0.3 K/mm3 (0.0-0.4) 02/08/19 06:11 Baso # 0.1 K/mm3 (0.0-0.1) 02/08/19 06:11 Seg Neutrophils % 73.8 % (40.0-70.0) H 02/08/19 06:11 Seg Neutrophils # 5.8 K/mm3 (1.8-7.7) 02/08/19 06:11 PT 14.8 Sec. (12.2-14.9) 02/06/19 21:47 INR 1.09 (0.87-1.13) 02/06/19 21:47 APTT 40.3 Sec. (24.2-36.6) H 02/06/19 21:47 Sodium 137 mmol/L (137-145) 02/08/19 06:11 Potassium 4.3 mmol/L (3.6-5.0) 02/08/19 06:11 Chloride 92.8 mmol/L (98-107) L 02/08/19 06:11 Carbon Dioxide 23 mmol/L (22-30) 02/08/19 06:11 Anion Gap 26 mmol/L 02/08/19 06:11 BUN 48 mg/dL (9-20) H 02/08/19 06:11 Creatinine 7.6 mg/dL (0.8-1.5) H 02/08/19 06:11 Estimated GFR 9 ml/min 02/08/19 06:11 BUN/Creatinine Ratio 6 % 02/08/19 06:11 Glucose 143 mg/dL (75-100) H 02/08/19 06:11 Calcium 10.4 mg/dL (8.4-10.2) H 02/08/19 06:11 Total Bilirubin 0.20 mg/dL (0.1-1.2) 02/08/19 06:11 AST 12 units/L (5-40) 02/08/19 06:11 ALT 9 units/L (7-56) 02/08/19 06:11 Alkaline Phosphatase 79 units/L (35-129) 02/08/19 06:11 Total Creatine Kinase 363 units/L (55-170) H 02/07/19 10:13 CK-MB (CK-2) 15.1 ng/mL (0.0-4.0) H 02/07/19 10:13 CK-MB (CK-2) Rel Index 4.1 (0-4) H 02/07/19 10:13 Troponin T 0.251 ng/mL (0.00-0.029) H* D 02/07/19 10:13 Total Protein 7.1 g/dL (6.3-8.2) 02/08/19 06:11 Albumin 3.7 g/dL (3.9-5) L 02/08/19 06:11 Albumin/Globulin Ratio 1.1 % 02/08/19 06:11 Triglycerides 80 mg/dL (2-149) 02/07/19 06:57 Cholesterol 143 mg/dL (50-199) 02/07/19 06:57 LDL Cholesterol Direct 56 mg/dL (50-130) 02/07/19 06:57 HDL Cholesterol 76 mg/dL (40-59) H 02/07/19 06:57 Cholesterol/HDL Ratio 1.88 % 02/07/19 06:57 Hepatitis A IgM Ab Non-reactive (NonReactive) 02/07/19 11:44 Hep Bs Antigen Non-reactive (Negative) 02/07/19 11:44 Hep B Core IgM Ab Non-reactive (NonReactive) 02/07/19 11:44 Hepatitis C Antibody Non-reactive (NonReactive) 02/07/19 11:44 Blood Type A POSITIVE 02/06/19 21:47 Antibody Screen Negative 02/06/19 21:47 Crossmatch See Detail 02/06/19 21:47 Active Medications - Current Medications Current Medications: Generic Name Dose Route Start Last Admin Trade Name Freq PRN Reason Stop Dose Admin Calcitriol 0.5 mcg 02/07/19 22:00 02/07/19 21:57 Rocaltrol PO 0.5 mcg BID MARTA Administration Clonidine HCl 0.1 mg 02/07/19 15:00 02/08/19 06:36 Catapres PO Not Given Q8H MARTA Gabapentin 300 mg 02/07/19 22:00 02/07/19 21:57 Neurontin PO 300 mg BID MARTA Administration Hydralazine HCl 10 mg 02/07/19 11:54 Apresoline IV Q4HR PRN HTN>155/90 Hydralazine HCl 50 mg 02/07/19 14:00 02/08/19 06:35 Apresoline PO 50 mg Q8HR MARTA Administration Hydroxychloroquine Sulfate 200 mg 02/08/19 10:00 Plaquenil PO QDAY MARTA Sodium Chloride 100 mls @ 999 mls/hr 02/06/19 23:37 Nacl 0.9% IV ONUR PRN Hypotension Nicardipine HCl 50 mg/ Sodium 250 mls @ 25 mls/hr 02/07/19 02:00 02/07/19 13:05 Chloride IV 5 mg/hr TITR MARTA 25 mls/hr Titration Protocol 5 MG/HR Nifedipine 60 mg 02/08/19 10:00 Procardia Xl PO QDAY MARTA Oxycodone HCl 10 mg 02/07/19 11:50 02/08/19 05:36 Oxycontin PO 10 mg Q6HR PRN Administration Pain , Severe (7-10) Oxycodone/Acetaminophen 1 tab 02/07/19 04:44 02/07/19 10:20 Percocet 5/325 PO 1 tab Q4H PRN Administration Pain, Moderate (4-6) Sevelamer Carbonate 2,400 mg 02/07/19 11:30 02/07/19 19:12 Renvela PO 2,400 mg AC MARTA Administration Sevelamer Carbonate 2,400 mg 02/07/19 16:30 02/07/19 19:14 Renvela PO Not Given AC MARTA Torsemide 100 mg 02/07/19 22:00 02/07/19 22:25 Demadex PO 100 mg BID MARTA Administration
--- NOTE | 2019-02-08 10:58 | Progress Note ---
Assessment and Plan - Patient Problems (1) Hyperkalemia Current Visit: Yes Status: Acute Plan to address problem: K improved with HD. cont 2g K renal diet (2) End stage renal disease Current Visit: Yes Status: Chronic Plan to address problem: Pt is home dialysis patient, at home on MWFSun schedule. cont HD on TTS schedule while inpatient. (3) Symptomatic anemia Current Visit: Yes Status: Acute Plan to address problem: s/p 1PRBC, cont EPO with HD (4) Secondary hyperparathyroidism of renal origin Current Visit: Yes Status: Acute Plan to address problem: cont sevelamer 2400mg po tid AC, will hold calcitriol for now given presence of mild hypercalcemia. (5) Chest pain Current Visit: Yes Status: Acute Plan to address problem: in the setting of symptomatic anemia. however troponin mildly elevated, further work up as per cardiology Subjective Date of service: 02/08/19 Principal diagnosis: esrd Interval history: pt awake, alert, reports orthopnea. denies active chest pain. s/p echocardiogram this AM Objective - Vital Signs Vital signs: Vital Signs - 12hr 02/07/19 02/08/19 02/08/19 23:09 05:20 08:29 Temperature 97.8 F Pulse Rate 92 H Pulse Rate [ 98 H Left Radial] Respiratory 20 20 Rate Blood Pressure 151/76 O2 Sat by Pulse 96 96 96 Oximetry - General Appearance General appearance: well-developed, well-nourished, appears stated age EENT: ATNC, PERRL, mucous membranes moist Neck: no JVD Respiratory: Present: Clear to Ascultation Cardiology: regular, S1S2, systolic murmur Gastrointestinal: normoactive bowel sounds Integumentary: no rash, other (no edema b/l LE ) Neurologic: no focal deficit, alert and oriented x3, gait normal, CN 3-12 intact Psychiatric: mood/affect appropriate, cooperative - Lab 02/08/19 06:11 02/08/19 06:11 Most recent lab results Calcium 10.4 mg/dL (8.4-10.2) H 02/08/19 06:11 Medications & Allergies - Medications Allergies/Adverse Reactions: Allergies lisinopril Allergy (Verified 02/06/19 20:59) Unknown metformin [From Glucophage] Allergy (Verified 02/06/19 20:59) Diarrhea Home Medications: Home Medications Medication Instructions Recorded Confirmed Last Taken Type Calcitriol [Rocaltrol] 0.5 mcg PO BID 02/07/19 02/07/19 Unknown History Cholecalciferol (Vitamin D3) 2,000 unit PO BID 02/07/19 02/07/19 Unknown History [Vitamin D3 2,000 UNIT CHEW TAB] Clonidine HCl [Kapvay] 0.1 mg PO ONCE 02/07/19 02/07/19 Unknown History Gabapentin [Neurontin] 300 mg PO BID 02/07/19 02/07/19 Unknown History Hydroxychloroquine [Plaquenil] 200 mg PO QDAY 02/07/19 02/07/19 Unknown History NIFEdipine [Adalat cc] 60 mg PO DAILY 02/07/19 02/07/19 Unknown History Ondansetron [Zofran ODT TAB] 8 mg PO PRN PRN 02/07/19 02/07/19 Unknown History Sevelamer Carbonate [Renvela] 2.4 gm PO TIDWM 02/07/19 02/07/19 Unknown History Torsemide [Demadex] 100 mg PO BID 02/07/19 02/07/19 Unknown History hydrALAZINE [Apresoline TAB] 10 mg PO BID 02/07/19 02/07/19 Unknown History oxyCODONE ER [OxyCONTIN ER TAB] 10 mg PO Q6HR PRN 02/07/19 02/07/19 Unknown History Active Medications: Generic Name Dose Route Start Last Admin Trade Name Freq PRN Reason Stop Dose Admin Calcitriol 0.5 mcg 02/07/19 22:00 02/07/19 21:57 Rocaltrol PO 0.5 mcg BID MARTA Administration Clonidine HCl 0.1 mg 02/07/19 15:00 02/08/19 06:36 Catapres PO Not Given Q8H MARTA Gabapentin 300 mg 02/07/19 22:00 02/07/19 21:57 Neurontin PO 300 mg BID MARTA Administration Hydralazine HCl 10 mg 02/07/19 11:54 Apresoline IV Q4HR PRN HTN>155/90 Hydralazine HCl 50 mg 02/07/19 14:00 02/08/19 06:35 Apresoline PO 50 mg Q8HR MARTA Administration Hydroxychloroquine Sulfate 200 mg 02/08/19 10:00 Plaquenil PO QDAY MARTA Sodium Chloride 100 mls @ 999 mls/hr 02/06/19 23:37 Nacl 0.9% IV ONUR PRN Hypotension Nicardipine HCl 50 mg/ Sodium 250 mls @ 25 mls/hr 02/07/19 02:00 02/07/19 13:05 Chloride IV 5 mg/hr TITR MARTA 25 mls/hr Titration Protocol 5 MG/HR Nifedipine 60 mg 02/08/19 10:00 Procardia Xl PO QDAY MARTA Oxycodone HCl 10 mg 02/07/19 11:50 02/08/19 05:36 Oxycontin PO 10 mg Q6HR PRN Administration Pain , Severe (7-10) Oxycodone/Acetaminophen 1 tab 02/07/19 04:44 02/07/19 10:20 Percocet 5/325 PO 1 tab Q4H PRN Administration Pain, Moderate (4-6) Sevelamer Carbonate 2,400 mg 02/07/19 11:30 02/07/19 19:12 Renvela PO 2,400 mg AC MARTA Administration Sevelamer Carbonate 2,400 mg 02/07/19 16:30 02/07/19 19:14 Renvela PO Not Given AC MARTA Torsemide 100 mg 02/07/19 22:00 02/07/19 22:25 Demadex PO 100 mg BID MARTA Administration
--- NOTE | 2019-02-08 11:15 | Progress Note ---
Assessment and Plan Echo reviewed - EF 45-50%, mod LVH, LA severely dilated, RA mod dilated, aortic valve leaflets severely thickened with reduced systolic excursion, mild with mean gradient 12mmHg, mitral valve leaflets severely thickened and calcified with mean gradient 11mmHg and peak gradient 37mmHg, trace MR, mod to severe MS. Will plan for outpatient MANUELA for further evaluation of aortic and mitral valves. Optimize anti-hypertensive regimen. Plan for lexiscan MPI stress test in AM. NPO after MN. The patient has been seen in conjunction with Dr. Wooten who agrees with the assessment and plan of care. - Patient Problems (1) Symptomatic anemia Current Visit: Yes Status: Acute (2) Chest pain Current Visit: Yes Status: Acute (3) Dyspnea Current Visit: Yes Status: Acute (4) Hypertensive emergency Current Visit: Yes Status: Acute (5) NSTEMI (non-ST elevated myocardial infarction) Current Visit: Yes Status: Acute Plan to address problem: type II (6) End stage renal disease Current Visit: Yes Status: Chronic (7) Aortic stenosis Current Visit: Yes Status: Chronic (8) Mitral stenosis Current Visit: Yes Status: Chronic Subjective Date of service: 02/08/19 Principal diagnosis: esrd Interval history: pt sitting up at bedside, still with weakness and lethargy and SOB. in SR on tele. Objective Last Vital Signs Temp 98.0 F 02/08/19 12:08 Pulse 114 H 02/08/19 12:08 Resp 18 02/08/19 12:08 BP 180/84 02/08/19 12:08 Pulse Ox 89 02/08/19 12:08 - Physical Examination General: No Apparent Distress HEENT: Positive: PERRL, Normocephaly, Mucus Membranes Moist Neck: Positive: neck supple, trachea midline Cardiac: Positive: Reg Rate and Rhythm, S1/S2, Systolic Murmur Lungs: Positive: Decreased Breath Sounds Neuro: Positive: Grossly Intact Abdomen: Negative: Tender Musculoskeletal: No Pain - Labs and Meds Cardiac Enzymes 02/08/19 Range/Units 06:11 AST 12 (5-40) units/L CBC 02/08/19 Range/Units 06:11 WBC 7.9 (4.5-11.0) K/mm3 RBC 2.72 L (3.65-5.03) M/mm3 Hgb 8.3 L (11.8-15.2) gm/dl Hct 25.3 L (35.5-45.6) % Plt Count 182 (140-440) K/mm3 Lymph # 0.9 L (1.2-5.4) K/mm3 Power # 0.8 (0.0-0.8) K/mm3 Eos # 0.3 (0.0-0.4) K/mm3 Baso # 0.1 (0.0-0.1) K/mm3 Comprehensive Metabolic Panel 02/08/19 Range/Units 06:11 Sodium 137 (137-145) mmol/L Potassium 4.3 (3.6-5.0) mmol/L Chloride 92.8 L (98-107) mmol/L Carbon Dioxide 23 (22-30) mmol/L BUN 48 H (9-20) mg/dL Creatinine 7.6 H (0.8-1.5) mg/dL Glucose 143 H (75-100) mg/dL Calcium 10.4 H (8.4-10.2) mg/dL AST 12 (5-40) units/L ALT 9 (7-56) units/L Alkaline Phosphatase 79 (35-129) units/L Total Protein 7.1 (6.3-8.2) g/dL Albumin 3.7 L (3.9-5) g/dL - Imaging and Cardiology EKG: report reviewed, image reviewed Echo: pending - Telemetry EKG Rhythm: Sinus Rhythm - EKG Sinus rhythms and dysrhythmias: sinus rhythm
[2019-02-08] MEDS: PLAQUENIL PO SCH (11:52)
[2019-02-08] MEDS: ROCALTROL PO SCH ×2 (11:52→23:04)
[2019-02-08] MEDS: PROCARDIA XL PO SCH (11:53)
[2019-02-08] MEDS: NEURONTIN PO SCH ×2 (11:53→23:03)
[2019-02-08] MEDS: DEMADEX PO SCH ×2 (13:54→23:08)
[2019-02-08] MEDS: LOPRESSOR PO SCH (23:03)
[2019-02-09] MEDS: CATAPRES PO SCH ×2 (00:19→08:00)
[2019-02-09] MEDS: APRESOLINE PO SCH ×2 (05:03→17:32)
[2019-02-09] MEDS ORDERED: PROCRIT SUB-Q SCH (06:00)
[2019-02-09] MEDS: RENVELA PO SCH ×2 (08:00→12:51)
[2019-02-09] MEDS ORDERED: LEXISCAN IV ONE (08:22)
[2019-02-09] MEDS: LOPRESSOR PO SCH (10:00)
[2019-02-09] MEDS: NEURONTIN PO SCH (10:00)
[2019-02-09] MEDS: DEMADEX PO SCH (10:00)
--- NOTE | 2019-02-09 10:54 | Progress Note ---
Assessment and Plan S/p lexiscan MPI stress test which was negative. Will plan for outpatient [facility]A for further evaluation of aortic and mitral valves. Pt noted to have marked 1st degree AV block on tele - will discontinue scheduled clonidine as pt reports he only takes this medication at home on PRN basis to avoid concurrent usage of 3 AV davian blocking agents. Cont lopressor, nifedipine, hydralazine. Currently stable cardiac status. Pt may discharge from cardiology standpoint. Recommend follow up in our office with Dr. Wooten within 1-2 weeks of hospital discharge ([phone]). The patient has been seen in conjunction with Dr. Wooten who agrees with the assessment and plan of care. - Patient Problems (1) Symptomatic anemia Current Visit: Yes Status: Acute (2) Chest pain Current Visit: Yes Status: Acute (3) Dyspnea Current Visit: Yes Status: Acute (4) Hypertensive emergency Current Visit: Yes Status: Acute (5) NSTEMI (non-ST elevated myocardial infarction) Current Visit: Yes Status: Acute (6) End stage renal disease Current Visit: Yes Status: Chronic (7) Aortic stenosis Current Visit: Yes Status: Chronic (8) Mitral stenosis Current Visit: Yes Status: Chronic Subjective Date of service: 02/09/19 Principal diagnosis: esrd Interval history: pt for stress test, states he is feeling better today. in SR on tele. Objective Last Vital Signs Temp 98.0 F 02/09/19 10:15 Pulse 88 02/09/19 10:15 Resp 18 02/09/19 10:15 BP 140/77 02/09/19 10:15 Pulse Ox 96 02/09/19 04:55 - Physical Examination General: No Apparent Distress HEENT: Positive: PERRL, Normocephaly, Mucus Membranes Moist Neck: Positive: neck supple, trachea midline Cardiac: Positive: Reg Rate and Rhythm, S1/S2, Systolic Murmur Lungs: Positive: Decreased Breath Sounds Neuro: Positive: Grossly Intact Abdomen: Negative: Tender Musculoskeletal: No Pain - Imaging and Cardiology EKG: report reviewed, image reviewed Echo: report reviewed ( EF 45-50%, mod LVH, LA severely dilated, RA mod dilated, aortic valve leaflets severely thickened with reduced systolic excursion, mild with mean gradient 12mmHg, mitral valve leaflets severely thickened and calcified with mean gradient 11mmHg and peak gradient 37mmHg, trace MR, mod to severe MS. ) - Telemetry EKG Rhythm: Sinus Rhythm - EKG Sinus rhythms and dysrhythmias: sinus rhythm
[2019-02-09] MEDS ORDERED: NACL 0.9 (PRIMING MACHINE ONLY DIALYSIS) MC ONE (11:44)
--- NOTE | 2019-02-09 16:18 | Discharge Summary ---
Providers - Providers Date of Admission: 02/06/19 23:40 Date of discharge: 02/09/19 Attending physician: GO SCHOFIELD 02/06/19 23:58 Consult to Physician [CONS] Urgent Comment: Dr. Del Toro spoke with Dr. Jones @ [id number] Consulting Provider: YASSINE JONES Physician Instructions: Reason For Exam: end-stage renal disease 02/07/19 06:36 Consult to Physician [CONS] Routine Comment: Consulting Provider: ELVIRA CURTIS Physician Instructions: Reason For Exam: cp Primary care physician: [facility], [place] Hospitalization Reason for admission: Severe anemia/chest pain Condition: Fair Pertinent studies: ECHO: EF 45-50% Stress test :Normal study,EF normal 1 unit PRBC transfusion Hospital course: 53-year-old male with a history of end-stage renal disease on dialysis every other day, hypertension, history of renal and colon cancer was sent to the emergency room by the nephrologists for hemoglobin of 6.5,Transfused 1 unit PRBC. Received HD per schedule.Stress test negative,Today patient is comfortable,no new complaints,vital signs noted,physical exam stable Discharge Diagnosis --Hypertensive emergency; s/p Cardene drip Pressures reasonable level. Resume all the home antihypertensives, titrate and DC Cardene drip --Positive cardiac enzymes/non-ST elevation IN Probably nonspecific, secondary to end-stage renal disease However patient has multiple risk factors ,need to rule out acute coronary syndrome, cardiology schedule stress test tomorrow, abnormal findings on echocardiogram Cardiology advised outpatient MANUELA upon discharge --End- stage renal disease on hemodialysis; Hemodialysis per schedule, nephrology following --Peripheral neuropathy; continue gabapentin and supportive care. --DVT prophylaxis; heparin and renal dose --Anemia of chronic kidney disease; status post transfusion, closely monitor H&H and transfuse additional as needed --Obesity; BMI 31.4, advised weight reduction when medically stable --Full CODE STATUS Disposition: DC- TO HOME OR SELFCARE Time spent for discharge: 32 min Core Measure Documentation - Palliative Care Palliative Care/ Comfort Measures: Not Applicable - Core Measures Any of the following diagnoses?: none Exam - Constitutional Vitals: Temp Pulse Resp BP Pulse Ox 98.0 F 77 18 132/67 96 02/09/19 13:30 02/09/19 13:30 02/09/19 13:30 02/09/19 13:30 02/09/19 04:55 General appearance: Present: no acute distress, well-nourished - EENT Eyes: Present: PERRL, EOM intact - Neck Neck: Present: supple, normal ROM - Respiratory Respiratory effort: normal - Cardiovascular Rhythm: regular Heart Sounds: Present: S1 & S2 - Extremities Extremities: no ischemia, No edema - Abdominal General gastrointestinal: Present: soft, non-tender, non-distended, normal bowel sounds - Integumentary Integumentary: Present: clear, warm - Musculoskeletal Musculoskeletal: strength equal bilaterally, generalized weakness - Psychiatric Psychiatric: appropriate mood/affect, cooperative - Neurologic Neurologic: CNII-XII intact, moves all extremities Plan Activity: advance as tolerated Diet: renal Additional Instructions: Follow-up renal/hemodialysis per schedule. Primary care physician in 3-5 days Follow up with: MANUEL DUMONT MD [Primary Care Provider] - 7 Days YASSINE JONES MD [Staff Physician] - 7 Days HAMIDA MACKAY MD [Staff Physician] - 7 Days
--- NOTE | 2019-02-09 17:02 | Progress Note ---
Assessment and Plan - Patient Problems (1) End stage renal disease Current Visit: Yes Status: Chronic Plan to address problem: Pt is home dialysis patient, at home cont MWFSun schedule. Pt stable for discharge after HD today. (2) Hyperkalemia Current Visit: Yes Status: Acute Plan to address problem: K improved with HD. cont 2g K renal diet (3) Symptomatic anemia Current Visit: Yes Status: Acute Plan to address problem: s/p 1PRBC, Hb improved > 8, cont mircera at outpatient HD clinic. (4) Secondary hyperparathyroidism of renal origin Current Visit: Yes Status: Acute Plan to address problem: cont sevelamer 2400mg po tid AC, will hold calcitriol for now given presence of mild hypercalcemia. (5) Chest pain Current Visit: Yes Status: Acute Plan to address problem: negative stress test reported. pt scheduled for outpatient MANUELA to evaluated mid /moderate to severe MS on Echo Subjective Date of service: 02/09/19 Principal diagnosis: esrd Interval history: pt awake, alert, denies active chest pain. Objective - Vital Signs Vital signs: Vital Signs - 12hr 02/09/19 02/09/19 02/09/19 08:46 08:50 08:57 Temperature Pulse Rate Respiratory Rate Blood Pressure 162/52 169/58 158/59 02/09/19 02/09/19 02/09/19 08:59 09:01 09:02 Temperature Pulse Rate Respiratory Rate Blood Pressure 165/51 151/48 161/53 02/09/19 02/09/19 02/09/19 09:04 10:15 10:30 Temperature 98.0 F Pulse Rate 89 92 H Respiratory 18 Rate Blood Pressure 161/57 147/76 153/80 02/09/19 02/09/19 02/09/19 10:45 11:00 11:15 Temperature Pulse Rate 81 94 H 97 H Respiratory Rate Blood Pressure 136/77 127/69 123/67 02/09/19 02/09/19 02/09/19 11:30 11:45 12:00 Temperature Pulse Rate 98 H 95 H 89 Respiratory Rate Blood Pressure 127/80 141/77 131/72 02/09/19 02/09/19 02/09/19 12:15 12:30 12:45 Temperature Pulse Rate 71 91 H 68 Respiratory Rate Blood Pressure 142/63 117/68 125/69 0402/09/19 02/09/19 13:00 13:15 13:30 Temperature 98.0 F Pulse Rate 75 88 77 Respiratory 18 Rate Blood Pressure 117/68 126/62 132/67 - General Appearance General appearance: well-developed, well-nourished, appears stated age EENT: ATNC, PERRL, mucous membranes moist Neck: no JVD Respiratory: Present: Clear to Ascultation Cardiology: regular, S1S2 Gastrointestinal: normoactive bowel sounds Integumentary: no rash, other (no edema ) Neurologic: no focal deficit, alert and oriented x3, strength 5/5, CN 3-12 intact Psychiatric: mood/affect appropriate, cooperative - Lab 02/08/19 06:11 02/08/19 06:11 Most recent lab results Calcium 10.4 mg/dL (8.4-10.2) H 02/08/19 06:11 Medications & Allergies - Medications Allergies/Adverse Reactions: Allergies lisinopril Allergy (Verified 02/06/19 20:59) Unknown metformin [From Glucophage] Allergy (Verified 02/06/19 20:59) Diarrhea Home Medications: Home Medications Medication Instructions Recorded Confirmed Last Taken Type Calcitriol [Rocaltrol] 0.5 mcg PO BID 02/07/19 02/07/19 Unknown History Cholecalciferol (Vitamin D3) 2,000 unit PO BID 02/07/19 02/07/19 Unknown History [Vitamin D3 2,000 UNIT CHEW TAB] Gabapentin [Neurontin] 300 mg PO BID 02/07/19 02/07/19 Unknown History Hydroxychloroquine [Plaquenil] 200 mg PO QDAY 02/07/19 02/07/19 Unknown History NIFEdipine [Adalat cc] 60 mg PO DAILY 02/07/19 02/07/19 Unknown History Ondansetron [Zofran ODT TAB] 8 mg PO PRN PRN 02/07/19 02/07/19 Unknown History Sevelamer Carbonate [Renvela] 2.4 gm PO TIDWM 02/07/19 02/07/19 Unknown History Torsemide [Demadex] 100 mg PO BID 02/07/19 02/07/19 Unknown History oxyCODONE ER [OxyCONTIN ER TAB] 10 mg PO Q6HR PRN 02/07/19 02/07/19 Unknown History Metoprolol [Lopressor TAB] 25 mg PO BID #60 tablet 02/09/19 Unknown Rx hydrALAZINE [Apresoline TAB] 50 mg PO Q8HR #90 tablet 02/09/19 Unknown Rx Active Medications: Generic Name Dose Route Start Last Admin Trade Name Freq PRN Reason Stop Dose Admin Calcitriol 0.5 mcg 02/07/19 22:00 02/08/19 23:04 Rocaltrol PO 0.5 mcg BID MARTA Administration Epoetin Porfirio 10,000 unit 02/09/19 06:00 02/09/19 12:14 Procrit SUB-Q 10,000 unit ONUR MARTA Administration Gabapentin 300 mg 02/07/19 22:00 02/09/19 10:00 Neurontin PO Not Given BID MARTA Hydralazine HCl 10 mg 02/07/19 11:54 Apresoline IV Q4HR PRN HTN>155/90 Hydralazine HCl 50 mg 02/07/19 14:00 02/09/19 05:03 Apresoline PO 50 mg Q8HR MARTA Administration Hydroxychloroquine Sulfate 200 mg 02/08/19 10:00 02/08/19 11:52 Plaquenil PO 200 mg QDAY MARTA Administration Sodium Chloride 100 mls @ 999 mls/hr 02/06/19 23:37 Nacl 0.9% IV ONUR PRN Hypotension Metoprolol Tartrate 25 mg 02/08/19 22:00 02/09/19 10:00 Lopressor PO Not Given BID MARTA Nifedipine 60 mg 02/08/19 10:00 02/08/19 11:53 Procardia Xl PO 60 mg QDAY MARTA Administration Oxycodone HCl 10 mg 02/07/19 11:50 02/08/19 05:36 Oxycontin PO 10 mg Q6HR PRN Administration Pain , Severe (7-10) Oxycodone/Acetaminophen 1 tab 02/07/19 04:44 02/07/19 10:20 Percocet 5/325 PO 1 tab Q4H PRN Administration Pain, Moderate (4-6) Sevelamer Carbonate 2,400 mg 02/07/19 11:30 02/09/19 12:51 Renvela PO Not Given AC MARTA Torsemide 100 mg 02/07/19 22:00 02/09/19 10:00 Demadex PO Not Given BID MARTA
[2019-02-09] MEDS: ROCALTROL PO SCH (17:32)
[2019-02-09] MEDS: PLAQUENIL PO SCH (17:32)
[2019-02-09 17:33] VITALS: BP 163/78
[2019-02-09] MEDS: PROCARDIA XL PO SCH (17:33)
--- NOTE | 2019-02-10 22:49 | Treadmill Report ---
NUCLEAR MYOCARDIAL PERFUSION IMAGING REPORT FINDINGS: The patient underwent pharmacological stress testing using IV Lexiscan. The patient received pyrophosphate tetrofosmin as the tracer during rest images and also post-vasodilation. Following findings were noted. Perfusion images performed post-vasodilation and at rest showed normal perfusion without any significant perfusion defects. Gated stress study was performed. Transient ischemic dilation ratio was found to be 0.95 with normal left ventricular wall, left ventricular size and wall thickening and function. Calculated ejection fraction of 53% was noted. FINAL IMPRESSION: 1. This pharmacological stress test was negative for any evidence of ischemia on perfusion images. 2. Normal left ventricular size and function was noted. 3. This was felt to be a low risk study for any future cardiac events. JOB# [id number] SCOTT/DUNCAN
== END 2019-02-09 18:30 | disposition home or self-care (01) ==
LOC: ED 20:46 → 4A 23:40 → CC1 02-07 03:06 → 3A 02-07 15:40
PROVIDERS: ADMIT Internal Medicine; ATTEND Internal Medicine
DX: D64.9 Anemia, unspecified (principal); I12.0 Hypertensive chronic kidney disease with stage 5 chronic kidney disease or end stage renal disease; N18.6 End stage renal disease; Z85.038 Personal history of other malignant neoplasm of large intestine; Z85.528 Personal history of other malignant neoplasm of kidney; R07.9 Chest pain, unspecified
CPT/HCPCS: 36415; 36430; 78452; 80053; 80061; 80074; 82550; 82553; 84484; 85025; 85610; 85730; 86850; 86900; 86901; 86920; 93005; 93010; 93017; 93306; 96372; 96374; 99284; A9502; G0257; G0378; J0360; J0885; J2785; J7030; J7040; J7050; P9016

== ENCOUNTER 2019-02-14 15:26 | Inpatient (IN) | payer MEDICARE, OTHER ==
--- NOTE | 2019-02-14 16:30 | Emergency Department Report ---
ED Shortness of Breath HPI - General Chief Complaint: Chest Pain Stated Complaint: CHEST PAIN/SOB Time Seen by Provider: 02/14/19 15:53 Source: EMS Mode of arrival: Stretcher Limitations: No Limitations - History of Present Illness Initial Comments: 53-year-old male with history of ESRD, renal cancer status post left nephrectomy, presents to ED with shortness of breath since this morning. The patient states he does hemodialysis at home every other day. Last dialyzed last night. Patient denies chest pain. Reports edema to the lower extremities. Denies fever or cough. Nephrology: Dr Ana UMANA Complaint: shortness of breath -: This morning Severity: moderate Consistency: intermittent Improves With: nothing Worsens With: nothing - Related Data Home Oxygen Therapy: No Home Medications Medication Instructions Recorded Confirmed Last Taken Calcitriol [Rocaltrol] 0.5 mcg PO BID 02/07/19 02/07/19 Unknown Cholecalciferol (Vitamin D3) 2,000 unit PO BID 02/07/19 02/07/19 Unknown [Vitamin D3 2,000 UNIT CHEW TAB] Gabapentin [Neurontin] 300 mg PO BID 02/07/19 02/07/19 Unknown Hydroxychloroquine [Plaquenil] 200 mg PO QDAY 02/07/19 02/07/19 Unknown NIFEdipine [Adalat cc] 60 mg PO DAILY 02/07/19 02/07/19 Unknown Ondansetron [Zofran ODT TAB] 8 mg PO PRN PRN 02/07/19 02/07/19 Unknown Sevelamer Carbonate [Renvela] 2.4 gm PO TIDWM 02/07/19 02/07/19 Unknown Torsemide [Demadex] 100 mg PO BID 02/07/19 02/07/19 Unknown oxyCODONE ER [OxyCONTIN ER TAB] 10 mg PO Q6HR PRN 02/07/19 02/07/19 Unknown Previous Rx's Medication Instructions Recorded Last Taken Type Metoprolol [Lopressor TAB] 25 mg PO BID #60 tablet 02/09/19 Unknown Rx hydrALAZINE [Apresoline TAB] 50 mg PO Q8HR #90 tablet 02/09/19 Unknown Rx Allergies Allergy/AdvReac Type Severity Reaction Status Date / Time lisinopril Allergy Unknown Verified 02/06/19 20:59 metformin [From Glucophage] Allergy Diarrhea Verified 02/06/19 20:59 ED Review of Systems ROS: Stated complaint: CHEST PAIN/SOB Other details as noted in HPI Comment: All other systems reviewed and negative Constitutional: denies: chills, fever Respiratory: shortness of breath. denies: cough Cardiovascular: denies: chest pain Musculoskeletal: other (reports lower extremity edema) ED Past Medical Hx - Past Medical History Hx Diabetes: No Hx Renal Disease: Yes (ESRD. Home hemodialysis) Additional medical history: Kidney [id number] - Surgical History Additional Surgical History: kidney, tonsillectomy, left rotator cuff,knee - Social History Smoking Status: Never Smoker Substance Use Type: None - Medications Home Medications: Home Medications Medication Instructions Recorded Confirmed Last Taken Type Calcitriol [Rocaltrol] 0.5 mcg PO BID 02/07/19 02/07/19 Unknown History Cholecalciferol (Vitamin D3) 2,000 unit PO BID 02/07/19 02/07/19 Unknown History [Vitamin D3 2,000 UNIT CHEW TAB] Gabapentin [Neurontin] 300 mg PO BID 02/07/19 02/07/19 Unknown History Hydroxychloroquine [Plaquenil] 200 mg PO QDAY 02/07/19 02/07/19 Unknown History NIFEdipine [Adalat cc] 60 mg PO DAILY 02/07/19 02/07/19 Unknown History Ondansetron [Zofran ODT TAB] 8 mg PO PRN PRN 02/07/19 02/07/19 Unknown History Sevelamer Carbonate [Renvela] 2.4 gm PO TIDWM 02/07/19 02/07/19 Unknown History Torsemide [Demadex] 100 mg PO BID 02/07/19 02/07/19 Unknown History oxyCODONE ER [OxyCONTIN ER TAB] 10 mg PO Q6HR PRN 02/07/19 02/07/19 Unknown History Metoprolol [Lopressor TAB] 25 mg PO BID #60 tablet 02/09/19 Unknown Rx hydrALAZINE [Apresoline TAB] 50 mg PO Q8HR #90 tablet 02/09/19 Unknown Rx ED Physical Exam - General Limitations: No Limitations General appearance: alert, in no apparent distress - Head Head exam: Present: atraumatic, normocephalic - Eye Eye exam: Present: normal appearance - ENT ENT exam: Present: mucous membranes moist - Neck Neck exam: Present: normal inspection - Respiratory Respiratory exam: Present: rales - Cardiovascular Cardiovascular Exam: Present: regular rate, normal rhythm - GI/Abdominal GI/Abdominal exam: Present: soft. Absent: distended, tenderness - Extremities Exam Extremities exam: Present: pedal edema - Neurological Exam Neurological exam: Present: alert, oriented X3 - Psychiatric Psychiatric exam: Present: normal affect, normal mood - Skin Skin exam: Present: warm, dry, intact, normal color ED Course Vital Signs 02/14/19 02/14/19 02/14/19 15:39 15:45 15:48 Temperature 98.1 F Pulse Rate 89 90 Respiratory 12 29 H 25 H Rate Blood Pressure 162/84 Blood Pressure 163/84 [Right] O2 Sat by Pulse 100 100 Oximetry 02/14/19 02/14/19 02/14/19 16:00 16:15 16:34 Temperature Pulse Rate 89 92 H Respiratory 27 H 18 18 Rate Blood Pressure 158/87 163/87 Blood Pressure [Right] O2 Sat by Pulse 100 95 100 Oximetry - Consultations Consultation #1: 02/14/19 18:02 Spoke w/ Dr Espana. Will place orders to dialyze pt. ED Medical Decision Making - Lab Data Result diagrams: 02/14/19 16:42 02/14/19 16:42 - EKG Data -: EKG Interpreted by Wi EKG shows normal: sinus rhythm, axis, QRS complexes, ST-T waves Rate: normal - EKG Data Interpretation: no acute changes, other (prolonged CA) - Radiology Data Radiology results: report reviewed, image reviewed - Medical Decision Making 53-year-old male with history of ESRD presents to ED with dyspnea. O2 sats 93% on room air, chest x-ray shows pleural effusion and a possible pulmonary edema as well, BNP 28,000. Troponin elevated, however, patient denies chest pain, EKG shows no ST changes. Possibly elevated due to patient's renal disease. Hyperkalemia present with potassium of 5.8. Insulin, D50, calcium chloride, Kayexalate administered. Spoke with the automation driver, will place orders for dialysis. Will admit to hospitalist, Dr Vanessa. - Differential Diagnosis pulm edema, pneumonia, hyperkalemia Critical Care Time: Yes Critical care time in (mins) excluding proc time.: 35 Critical care attestation.: If time is entered above; I have spent that time in minutes in the direct care of this critically ill patient, excluding procedure time. Critical Care Time: 35 minutes ED Disposition Clinical Impression: Hyperkalemia, Pleural effusion, Dyspnea, Elevated troponin Disposition: 09 OP ADMIT IP TO THIS HOSP Is pt being admited?: Yes Condition: Stable Referrals: PRIMARY CARE, [Primary Care Provider] - 3-5 Days Time of Disposition: 17:58
[2019-02-14 16:57] LABS: Basophils # (Auto) 0.1 K/mm3 (0.0-0.1); Basophils % (Auto) 0.7 % (0.0-1.8); Eosinophils # (Auto) 0.2 K/mm3 (0.0-0.4); Eosinophils % (Auto) 2.2 % (0.0-4.3); Hematocrit 22.5 % (35.5-45.6); Hemoglobin 7.5 gm/dl (11.8-15.2); Lymphocytes # (Auto) 0.5 K/mm3 (1.2-5.4); Lymphocytes % (Auto) 7.5 % (13.4-35.0); Mean Corpuscular HGB Conc 33 % (32-34); Mean Corpuscular Volume 93 fl (84-94); Monocytes # (Auto) 0.6 K/mm3 (0.0-0.8); Monocytes % (Auto) 8.6 % (0.0-7.3); Platelet Count 171 K/mm3 (140-440); Red Blood Count 2.43 M/mm3 (3.65-5.03); Red Cell Distribution Width 18.3 % (13.2-15.2)
[2019-02-14 17:18] LABS: Calcium 9.9 mg/dL (8.4-10.2); INR 1.08 (0.87-1.13); Partial Thromboplastin Time 40.4 Sec. (24.2-36.6)
--- NOTE | 2019-02-14 17:27 | XRay Report ---
PROCEDURE: XR CHEST 1V AP TECHNIQUE: HISTORY: sob COMPARISONS: FINDINGS: Cardiac silhouette is partially obscured. There is patchy increased opacity within the right lower lo be. There is mild hazy increased opacity at the left lower lobe. Pulmonary vasculature is unremarkabl e. IMPRESSION: Right lower lobe infiltrate/effusion Probable airspace disease noted within the left lower lobe. This document is electronically signed by Brady Dominguez MD., February 14 2019 05:25:44 PM ET
[2019-02-14] MEDS ORDERED: CALCIUM CHLORIDE IV ONE (17:44)
[2019-02-14] MEDS ORDERED: HumuLIN R IV ONE (17:44)
[2019-02-14] MEDS ORDERED: D50W (25GM) Syringe IV ONE (17:44)
[2019-02-14] MEDS ORDERED: KIONEX PO ONE (17:44)
[2019-02-14 17:48] LABS: Chol/HDL Ratio 1.9 %
[2019-02-14] MEDS ORDERED: NACL 0.9% 100 ML IV PRN (18:26)
--- NOTE | 2019-02-14 18:47 | History and Physical Report ---
History of Present Illness Chief complaint: I feel short of breath History of present illness: 53 YO Male with ESRD on Home Hemodialysis QOD with last dialysis session conducted on the day prior to admission, RCC S/P Left Nephrectomy, HTN, Obesity presents to ED for evaluation. Pt states that he has experienced shortness of breath over the past 1 day with worsening symptoms over the past 6 hours. Pt also reports of chest pain, but uopn further questioning the patient located and area in the epigastric region as the source of his pain. EMS notified, and upon arrival the patient was found to be in distress. Pt transported to [facility] ED. Pt seen and evaluated in ED and found to have ESRD, Acute Hypoxemic Respiratory Failure, as well as RLL Pneumonia. Pt admitted to medical floor, and initiated on Pneumonia protocol. Nephrology consulted in ED. Pt denies fever, chills, CP, Palpitations, NVD, Trauma, BRBPR, Unintentional weight loss, Night sweat, productive, or recent ill contacts. Prior admission on 02/06/19 reviewed. All listed medication reconciled at time of admission. Pt admitted to medical floor. Past History Past Medical History: ESRD, hypertension Past Surgical History: total knee replacement, tonsillectomy, Other (Left Nephrectomy) Social history: , lives with family. denies: smoking, alcohol abuse, prescription drug abuse Family history: diabetes, hypertension Medications and Allergies Allergies Allergy/AdvReac Type Severity Reaction Status Date / Time lisinopril Allergy Unknown Verified 02/06/19 20:59 metformin [From Glucophage] Allergy Diarrhea Verified 02/06/19 20:59 Home Medications Medication Instructions Recorded Confirmed Last Taken Type Calcitriol [Rocaltrol] 0.5 mcg PO BID 02/07/19 02/07/19 Unknown History Cholecalciferol (Vitamin D3) 2,000 unit PO BID 02/07/19 02/07/19 Unknown History [Vitamin D3 2,000 UNIT CHEW TAB] Gabapentin [Neurontin] 300 mg PO BID 02/07/19 02/07/19 Unknown History Hydroxychloroquine [Plaquenil] 200 mg PO QDAY 02/07/19 02/07/19 Unknown History NIFEdipine [Adalat cc] 60 mg PO DAILY 02/07/19 02/07/19 Unknown History Ondansetron [Zofran ODT TAB] 8 mg PO PRN PRN 02/07/19 02/07/19 Unknown History Sevelamer Carbonate [Renvela] 2.4 gm PO TIDWM 02/07/19 02/07/19 Unknown History Torsemide [Demadex] 100 mg PO BID 02/07/19 02/07/19 Unknown History oxyCODONE ER [OxyCONTIN ER TAB] 10 mg PO Q6HR PRN 02/07/19 02/07/19 Unknown History Metoprolol [Lopressor TAB] 25 mg PO BID #60 tablet 02/09/19 Unknown Rx hydrALAZINE [Apresoline TAB] 50 mg PO Q8HR #90 tablet 02/09/19 Unknown Rx Active Meds: Active Medications Sodium Chloride (Nacl 0.9%) 100 mls @ 999 mls/hr IV ONUR PRN PRN Reason: Hypotension Review of Systems Constitutional: no weight loss, no weight gain, no chills, no night sweats Ears, nose, mouth and throat: no ear pain, no tinnitis, no nose pain Cardiovascular: no chest pain, no palpitations, no rapid/irregular heart beat, no lightheadedness Respiratory: no cough, no excessive sputum, no shortness of breath Gastrointestinal: no abdominal pain, no vomiting, no constipation Genitourinary Male: no hematuria, no flank pain, no urinary frequency, no nocturia Rectal: no pain, no incontinence, no bleeding Musculoskeletal: no neck stiffness, no shooting arm pain, no low back pain Integumentary: no rash, no pruritis, no redness, no sores Neurological: no transient paralysis, no weakness, no numbness, no seizures Psychiatric: no anxiety, no change in sleep habits, no hypersomnia Endocrine: no cold intolerance, no heat intolerance, no polyphagia, no excessive thirst, no polydipsia, no polyuria Hematologic/Lymphatic: no easy bruising, no easy bleeding Allergic/Immunologic: no urticaria, no allergic rhinitis Exam - Constitutional Vitals: Temp Pulse Resp BP Pulse Ox 98.1 F 92 H 18 163/87 100 02/14/19 15:48 02/14/19 16:15 02/14/19 16:34 02/14/19 16:15 02/14/19 16:34 General appearance: Present: mild distress - EENT Eyes: Present: PERRL ENT: hearing intact, clear oral mucosa - Neck Neck: Present: supple, normal ROM - Respiratory Respiratory effort: normal Respiratory: bilateral: CTA - Cardiovascular Heart Sounds: Present: S1 & S2. Absent: rub, click - Extremities Extremities: pulses symmetrical, No edema Peripheral Pulses: within normal limits - Abdominal General gastrointestinal: Present: soft, non-tender, non-distended, normal bowel sounds Male genitourinary: Present: normal - Integumentary Integumentary: Present: clear, warm, dry - Musculoskeletal Musculoskeletal: gait normal, strength equal bilaterally - Psychiatric Psychiatric: appropriate mood/affect, intact judgment & insight - Neurologic Neurologic: CNII-XII intact, moves all extremities Results - Labs CBC & Chem 7: 02/14/19 16:42 02/14/19 16:42 Labs: Abnormal lab results 02/14/19 02/14/19 02/14/19 Range/Units 16:42 16:42 16:42 RBC 2.43 L (3.65-5.03) M/mm3 Hgb 7.5 L (11.8-15.2) gm/dl Hct 22.5 L (35.5-45.6) % RDW 18.3 H (13.2-15.2) % Lymph % (Auto) 7.5 L (13.4-35.0) % Jay % (Auto) 8.6 H (0.0-7.3) % Lymph # 0.5 L (1.2-5.4) K/mm3 Seg Neutrophils % 81.0 H (40.0-70.0) % APTT 40.4 H (24.2-36.6) Sec. Sodium 132 L (137-145) mmol/L Potassium 5.8 H (3.6-5.0) mmol/L Chloride 89.4 L (98-107) mmol/L BUN 54 H (9-20) mg/dL Creatinine 8.1 H (0.8-1.5) mg/dL Troponin T 0.550 H* (0.00-0.029) ng/mL NT-Pro-B Natriuret Pep (0-900) pg/mL HDL Cholesterol 75 H (40-59) mg/dL 02/14/19 Range/Units 16:42 RBC (3.65-5.03) M/mm3 Hgb (11.8-15.2) gm/dl Hct (35.5-45.6) % RDW (13.2-15.2) % Lymph % (Auto) (13.4-35.0) % Jay % (Auto) (0.0-7.3) % Lymph # (1.2-5.4) K/mm3 Seg Neutrophils % (40.0-70.0) % APTT (24.2-36.6) Sec. Sodium (137-145) mmol/L Potassium (3.6-5.0) mmol/L Chloride (98-107) mmol/L BUN (9-20) mg/dL Creatinine (0.8-1.5) mg/dL Troponin T (0.00-0.029) ng/mL NT-Pro-B Natriuret Pep 60793 H (0-900) pg/mL HDL Cholesterol (40-59) mg/dL Assessment and Plan - Patient Problems (1) ESRD (end stage renal disease) on dialysis Current Visit: Yes Status: Acute Plan to address problem: nephrology consulted in ED, dialysis as per renal team, avoid nephrotoxic agents, monitor uop q shift, strict I/O, daily weight, (2) RLL pneumonia Current Visit: Yes Status: Acute Qualifiers: Pneumonia type: due to unspecified organism Qualified Code(s): J18.1 - Lobar pneumonia, unspecified organism Plan to address problem: Pneumonia protocol: IV antibiotic therapy, chest x ray, supplemental oxygen, nebulizer therapy, NIPPV as clinically indicated, CBC. (3) Respiratory failure Current Visit: Yes Status: Acute Qualifiers: Chronicity: acute Respiratory failure complication: hypoxia Qualified Code(s): J96.01 - Acute respiratory failure with hypoxia Plan to address problem: Admit to medical floor, pulse oximetry, supplemental oxygen, nebulizer therapy, chest x ray, NIPPV as clinically indicated, (4) Elevated troponin Current Visit: Yes Status: Acute Plan to address problem: suspected secondary to ESRD, Pt denies chest pain. dialysis as per renal team. (5) DVT prophylaxis Current Visit: Yes Status: Acute Plan to address problem: SCD to bLE while in bed, Prophylactic heparin.
[2019-02-14] MEDS ORDERED: ZOFRAN ODT PO PRN (18:48)
[2019-02-14] MEDS ORDERED: OxyCONTIN PO PRN (18:48)
[2019-02-14] MEDS ORDERED: PROVENTIL IH PRN (18:49)
[2019-02-14] MEDS ORDERED: ZOFRAN IV PRN (18:49)
[2019-02-14] MEDS ORDERED: SODIUM CHLORIDE FLUSH SYRINGE 10 ML IV PRN (18:49)
[2019-02-14] MEDS ORDERED: ROXICODONE ONE ×2 (20:34)
[2019-02-14] MEDS: ROXICODONE PO PRN (20:37)
[2019-02-14] MEDS ORDERED: NEURONTIN PO STA (21:02)
[2019-02-14] MEDS ORDERED: NACL 0.9 (PRIMING MACHINE ONLY DIALYSIS) MC ONE (21:13)
[2019-02-14] MEDS ORDERED: ROCEPHIN/NS 2 GM/100 ML 2 GM/100 ML BAG IV SCH (22:00)
[2019-02-14] MEDS ORDERED: CHOLECALCIFEROL 2000 UNIT PO SCH (22:00)
[2019-02-14] MEDS ORDERED: [UNRECOGNIZED DRUG - OTHER] PO SCH (22:00)
[2019-02-15] MEDS: TYLENOL PO PRN (00:18)
[2019-02-15] MEDS: NEURONTIN PO SCH ×3 (03:23→22:23)
[2019-02-15] MEDS: VITAMIN D3 PO SCH ×3 (03:34→22:23)
[2019-02-15] MEDS: ROCALTROL PO SCH ×3 (03:35→23:40)
[2019-02-15] MEDS: HEPARIN SUB-Q SCH ×4 (03:36→22:23)
[2019-02-15] MEDS: LOPRESSOR PO SCH ×3 (03:36→22:23)
[2019-02-15] MEDS: ZITHROMAX 500 MG in NACL 0.9% 250ML 250 ML IV SCH ×2 (03:37→22:25)
[2019-02-15] MEDS ORDERED: NACL 0.9% 1000 ML 1,000 ML ONE (03:49)
[2019-02-15] MEDS: APRESOLINE PO SCH ×4 (05:47→22:22)
[2019-02-15] MEDS: SODIUM CHLORIDE FLUSH SYRINGE 10 ML IV SCH ×3 (05:48→23:40)
[2019-02-15] MEDS: DEMADEX PO SCH ×3 (06:11→22:22)
[2019-02-15] MEDS: ROCEPHIN/NS 2 GM/100 ML 2 GM/100 ML BAG IV SCH (06:45)
[2019-02-15 07:28] LABS: Basophils # (Auto) 0.1 K/mm3 (0.0-0.1); Basophils % (Auto) 0.9 % (0.0-1.8); Eosinophils # (Auto) 0.2 K/mm3 (0.0-0.4); Eosinophils % (Auto) 3.4 % (0.0-4.3); Hematocrit 23.2 % (35.5-45.6); Hemoglobin 7.7 gm/dl (11.8-15.2); Lymphocytes # (Auto) 0.4 K/mm3 (1.2-5.4); Lymphocytes % (Auto) 6.3 % (13.4-35.0); Mean Corpuscular HGB Conc 33 % (32-34); Mean Corpuscular Volume 92 fl (84-94); Monocytes # (Auto) 0.8 K/mm3 (0.0-0.8); Monocytes % (Auto) 10.5 % (0.0-7.3); Platelet Count 182 K/mm3 (140-440); Red Blood Count 2.52 M/mm3 (3.65-5.03); Red Cell Distribution Width 18.6 % (13.2-15.2)
[2019-02-15 07:48] LABS: Calcium 9.7 mg/dL (8.4-10.2)
[2019-02-15] MEDS ORDERED: SEVELAMER CARBONATE 2.4 GM PO SCH (08:00)
[2019-02-15] MEDS: ROXICODONE PO PRN ×2 (08:58→17:36)
[2019-02-15] MEDS: PROCARDIA XL PO SCH (09:00)
[2019-02-15] MEDS: PLAQUENIL PO SCH (09:01)
[2019-02-15] MEDS: RENVELA PO SCH ×3 (09:15→16:23)
[2019-02-15] MEDS ORDERED: NON-FORMULARY (Nifedipine [Adalat Cc] 60 MG) PO SCH (10:00)
--- NOTE | 2019-02-15 12:01 | Consultation ---
History of Present Illness - Reason for Consult Consult date: 02/15/19 end stage renal disease, hyperkalemia Requesting physician: SIERRA ROSENTHAL - History of Present Illness 53-year-old male is known to our group with end stage renal disease on home hemodialysis every other day. Patient has been on dialysis since 2013. He was just in this hospital last week and had a 2-D echo which showed severe mitral stenosis and stress test was normal. Patient's says he was doing well at home but last night he developed progressively worsening shortness of breath. He was huffing and puffing. He has a productive cough. He also feels he had low-grade fever. On account of the worsening dyspnea he called the ambulance and was brought to the hospital. on the way to the hospital, he developed chest pain which she describes as a dull pain on the left side of his chest, radiating to his back with no associated dizziness. He denies any numbness or tingling. Patient was brought to the hospital and labs showed sodium was low at 132 mmol per liter and potassium high at 5.8 mmol per liter. Chest x-ray also showed pulmonary edema with right Pleural effusion and possible infiltrates on the right lower lobe. I was consulted and did give orders for dialysis last night. 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 denies: smoking, alcohol abuse, prescription drug abuse Family history: diabetes, hypertension, other (he does not know the cause of of his parents. Mother in her 50s she was on drugs. Father in his 70s. 2 brothers and 2 sisters are alive and in good health) Medications and Allergies Allergies Allergy/AdvReac Type Severity Reaction Status Date / Time lisinopril Allergy Unknown Verified 02/06/19 20:59 metformin [From Glucophage] Allergy Diarrhea Verified 02/06/19 20:59 Home Medications Medication Instructions Recorded Confirmed Last Taken Type Calcitriol [Rocaltrol] 0.5 mcg PO BID 02/07/19 02/07/19 Unknown History Cholecalciferol (Vitamin D3) 2,000 unit PO BID 02/07/19 02/07/19 Unknown History [Vitamin D3 2,000 UNIT CHEW TAB] Gabapentin [Neurontin] 300 mg PO BID 02/07/19 02/07/19 Unknown History Hydroxychloroquine [Plaquenil] 200 mg PO QDAY 02/07/19 02/07/19 Unknown History NIFEdipine [Adalat cc] 60 mg PO DAILY 02/07/19 02/07/19 Unknown History Ondansetron [Zofran ODT TAB] 8 mg PO PRN PRN 02/07/19 02/07/19 Unknown History Sevelamer Carbonate [Renvela] 2.4 gm PO TIDWM 02/07/19 02/07/19 Unknown History Torsemide [Demadex] 100 mg PO BID 02/07/19 02/07/19 Unknown History oxyCODONE ER [OxyCONTIN ER TAB] 10 mg PO Q6HR PRN 02/07/19 02/07/19 Unknown History Metoprolol [Lopressor TAB] 25 mg PO BID #60 tablet 02/09/19 Unknown Rx hydrALAZINE [Apresoline TAB] 50 mg PO Q8HR #90 tablet 02/09/19 Unknown Rx Active Meds: Active Medications Acetaminophen (Tylenol) 650 mg PO Q4H PRN PRN Reason: Pain MILD(1-3)/Fever >100.5/OSBORN Last Admin: 02/15/19 00:18 Dose: 650 mg Documented by: Albuterol (Proventil) 2.5 mg IH Q4HRT PRN PRN Reason: Shortness Of Breath Calcitriol (Rocaltrol) 0.5 mcg PO BID [facility] Last Admin: 02/15/19 09:00 Dose: 0.5 mcg Documented by: Cholecalciferol (Vitamin D3) 2,000 unit PO BID [facility] Last Admin: 02/15/19 09:00 Dose: 2,000 unit Documented by: Epoetin Porfirio (Procrit) 20,000 unit SUB-Q 2XW [facility] Gabapentin (Neurontin) 300 mg PO BID [facility] Last Admin: 02/15/19 09:00 Dose: 300 mg Documented by: Heparin Sodium (Porcine) (Heparin) 5,000 unit SUB-Q Q12HR [facility] Last Admin: 02/15/19 03:36 Dose: Not Given Documented by: Hydralazine HCl (Apresoline) 50 mg PO Q8HR [facility] Last Admin: 02/15/19 06:46 Dose: 50 mg Documented by: Hydroxychloroquine Sulfate (Plaquenil) 200 mg PO QDAY [facility] Last Admin: 02/15/19 09:01 Dose: 200 mg Documented by: Sodium Chloride (Nacl 0.9%) 100 mls @ 999 mls/hr IV ONUR PRN PRN Reason: Hypotension Azithromycin 500 mg/ Sodium (Chloride) 250 mls @ 250 mls/hr IV Q24H [facility]; Protocol Last Admin: 02/15/19 03:37 Dose: 250 mls/hr Documented by: Ceftriaxone Sodium (Rocephin/Ns 2 Gm/100 Ml) 2 gm in 100 mls @ 200 mls/hr IV Q24H [facility]; Protocol Last Admin: 02/15/19 06:45 Dose: 200 mls/hr Documented by: Metoprolol Tartrate (Lopressor) 25 mg PO BID [facility] Last Admin: 02/15/19 09:00 Dose: 25 mg Documented by: Nifedipine (Procardia Xl) 60 mg PO QDAY [facility] Last Admin: 02/15/19 09:00 Dose: 60 mg Documented by: Ondansetron HCl (Zofran Odt) 8 mg PO Q8H PRN PRN Reason: Vomiting Ondansetron HCl (Zofran) 4 mg IV Q8H PRN PRN Reason: Nausea And Vomiting Oxycodone HCl (Roxicodone) 10 mg PO Q6H PRN PRN Reason: Pain , Severe (7-10) Last Admin: 02/15/19 08:58 Dose: 10 mg Documented by: Sevelamer Carbonate (Renvela) 2,400 mg PO AC [facility] Last Admin: 02/15/19 09:15 Dose: 2,400 mg Documented by: Sodium Chloride (Sodium Chloride Flush Syringe 10 Ml) 10 ml IV BID [facility] Last Admin: 02/15/19 09:02 Dose: 10 ml Documented by: Sodium Chloride (Sodium Chloride Flush Syringe 10 Ml) 10 ml IV PRN PRN PRN Reason: LINE FLUSH Torsemide (Demadex) 100 mg PO BID [facility] Last Admin: 02/15/19 09:02 Dose: 100 mg Documented by: Review of Systems All systems: negative (Constitutional: Patient believes he had low-grade fever. No chills. No anorexia or weight loss. HEENT: No sore throat or sinus drainage no hearing or vision impairment . Cardiovascular: See history of present illness. No palpitations, lower extremity swelling or dizziness. Respiratory: He had cough which is nonproductive. No hemoptysis or wheezing. Gas trointestinal: Admits to nausea, vomiting,and diarrhea. No abdominal pain, hematemesis or melena. Genitourinary: No frequency urgency dysuria or hematuria. hematologic: No abnormal bleeding or bruising. Integumentary: Admits to itching on his back. No rash. Neurological: Admits to headaches. No focal weakness or numbness, no syncope or seizures. Musculoskeletal: Admits to joint pains no stiffness. Psychiatry: Admits to anxiety. No depression) Exam - Vital Signs Vital signs: Vital Signs Resp 12 02/14/19 15:39 - Physical Exam Narrative exam: Obese, Middle-aged -[place] male lying in bed in no acute distress HEENT: NCAT, pink oral mucous membrane Neck: Supple, no venous distention CVS: S1S2 RRR with no murmur, rub or gallop Chest: Clear to auscultation Abdomen: Protuberant, soft, nontender, no organomegaly, bowel sounds are present Extremities: Mild edema Neuro: Awake, alert no focal deficits Results - Lab Results 02/15/19 07:06 02/15/19 07:06 Most recent lab results Calcium 9.7 mg/dL (8.4-10.2) 02/15/19 07:06 Assessment and Plan - Patient Problems (1) Shortness of breath at rest Current Visit: Yes Status: Acute Plan to address problem: X-ray shows pleural effusion on the right with possible infiltrate and also pulmonary edema. Symptoms improved with fluid removal on dialysis yesterday. (2) Chest pain Current Visit: Yes Status: Acute Plan to address problem: Discussed with content specialist. For cardiac catheterization in the morning (3) Hyperkalemia Current Visit: Yes Status: Acute Plan to address problem: Improved with dialysis yesterday (4) Pleural effusion Current Visit: Yes Status: Acute Plan to address problem: Discussed doing extra dialysis today just for fluid removal. Patient declines. He says he dialyzed on Wednesday and then again yesterday. He will eliminate fluid gains (5) Hypertensive emergency Current Visit: No Status: Acute Plan to address problem: Blood pressure was high on presentation probably volume related. Improving with fluid removal on dialysis. Follow-up blood pressure (6) Symptomatic anemia Current Visit: No Status: Acute Plan to address problem: Follow-up hemoglobin and symptoms. Give high-dose Epogen on dialysis (7) Aortic stenosis Current Visit: No Status: Chronic Plan to address problem: Follow-up with content specialist (8) End stage renal disease Current Visit: No Status: Chronic Plan to address problem: Hemodialysis again in the morning
--- NOTE | 2019-02-15 12:25 | Progress Note ---
Assessment and Plan Assessment and plan: Acute hypoxemic respiratory failure. Etiology secondary to pneumonia/parapneumonic effusion and pulmonary edema. Continue O2 for supportive care. Chest pain with elevated troponin. Patient for cardiac catheterization in the morning. Cardiology following. Hyperkalemia. Improved with hemodialysis yesterday. Continue to follow BMP. Healthcare associated Right lower lobe pneumonia with parapneumonic effusion. Continue pneumonia pathway and IV antibiotics. Patient with recent hospitalization earlier this month. Continue broad-spectrum antibiotics. Consider ID consultation. Anemia of ESRD. Continue to follow H&H and transfuse for hemoglobin less than 7. Give high-dose Epogen on dialysis Accelerated hypertension. Continue antihypertensive medications. Also blood pressure should improve with fluid removal on dialysis. Aortic and mitral stenosis. Continue per cardiology. ESRD. Continue hemodialysis per nephrology. History Interval history: No new issues overnight Hospitalist Physical - Constitutional Vitals: Temp Pulse Resp BP Pulse Ox 98.3 F 76 20 174/77 94 02/15/19 11:43 02/15/19 11:43 02/15/19 11:43 02/15/19 11:43 02/15/19 11:43 General appearance: Present: mild distress - EENT Eyes: Present: PERRL, EOM intact ENT: hearing intact, clear oral mucosa, dentition normal - Neck Neck: Present: supple, normal ROM - Respiratory Respiratory effort: normal Respiratory: bilateral: CTA - Cardiovascular Rhythm: regular Heart Sounds: Present: S1 & S2. Absent: gallop, rub - Extremities Extremities: no ischemia, No edema, Full ROM - Abdominal General gastrointestinal: soft, non-tender, non-distended, normal bowel sounds - Integumentary Integumentary: Present: clear, warm, dry - Neurologic Neurologic: CNII-XII intact, moves all extremities Results - Labs CBC & Chem 7: 02/15/19 07:06 02/15/19 07:06 Labs: Laboratory Last Values WBC 7.1 K/mm3 (4.5-11.0) 02/15/19 07:06 RBC 2.52 M/mm3 (3.65-5.03) L 02/15/19 07:06 Hgb 7.7 gm/dl (11.8-15.2) L 02/15/19 07:06 Hct 23.2 % (35.5-45.6) L 02/15/19 07:06 MCV 92 fl (84-94) 02/15/19 07:06 MCH 31 pg (28-32) 02/15/19 07:06 MCHC 33 % (32-34) 02/15/19 07:06 RDW 18.6 % (13.2-15.2) H 02/15/19 07:06 Plt Count 182 K/mm3 (140-440) 02/15/19 07:06 Lymph % (Auto) 6.3 % (13.4-35.0) L 02/15/19 07:06 [place] % (Auto) 10.5 % (0.0-7.3) H 02/15/19 07:06 Eos % (Auto) 3.4 % (0.0-4.3) 02/15/19 07:06 Baso % (Auto) 0.9 % (0.0-1.8) 02/15/19 07:06 Lymph # 0.4 K/mm3 (1.2-5.4) L 02/15/19 07:06 [place] # 0.8 K/mm3 (0.0-0.8) 02/15/19 07:06 Eos # 0.2 K/mm3 (0.0-0.4) 02/15/19 07:06 Baso # 0.1 K/mm3 (0.0-0.1) 02/15/19 07:06 Seg Neutrophils % 78.9 % (40.0-70.0) H 02/15/19 07:06 Seg Neutrophils # 5.6 K/mm3 (1.8-7.7) 02/15/19 07:06 PT 14.7 Sec. (12.2-14.9) 02/14/19 16:42 INR 1.08 (0.87-1.13) 02/14/19 16:42 APTT 40.4 Sec. (24.2-36.6) H 02/14/19 16:42 Sodium 139 mmol/L (137-145) D 02/15/19 07:06 Potassium 3.9 mmol/L (3.6-5.0) D 02/15/19 07:06 Chloride 97.3 mmol/L (98-107) L 02/15/19 07:06 Carbon Dioxide 30 mmol/L (22-30) 02/15/19 07:06 Anion Gap 16 mmol/L 02/15/19 07:06 BUN 30 mg/dL (9-20) H 02/15/19 07:06 Creatinine 5.7 mg/dL (0.8-1.5) H 02/15/19 07:06 Estimated GFR 13 ml/min 02/15/19 07:06 BUN/Creatinine Ratio 5 % 02/15/19 07:06 Glucose 115 mg/dL (75-100) H 02/15/19 07:06 Calcium 9.7 mg/dL (8.4-10.2) 02/15/19 07:06 Troponin T 0.594 ng/mL (0.00-0.029) H* 02/15/19 07:06 NT-Pro-B Natriuret Pep 23483 pg/mL (0-900) H 02/14/19 16:42 Triglycerides 63 mg/dL (2-149) 02/14/19 16:42 Cholesterol 143 mg/dL (50-199) 02/14/19 16:42 LDL Cholesterol Direct 51 mg/dL (50-130) 02/14/19 16:42 HDL Cholesterol 75 mg/dL (40-59) H 02/14/19 16:42 Cholesterol/HDL Ratio 1.90 % 02/14/19 16:42 Active Medications - Current Medications Current Medications: Generic Name Dose Route Start Last Admin Trade Name Freq PRN Reason Stop Dose Admin Acetaminophen 650 mg 02/14/19 18:49 02/15/19 00:18 Tylenol PO 650 mg Q4H PRN Administration Pain MILD(1-3)/Fever >100.5/OSBORN Albuterol 2.5 mg 02/14/19 18:49 Proventil IH Q4HRT PRN Shortness Of Breath Calcitriol 0.5 mcg 02/14/19 22:00 02/15/19 09:00 Rocaltrol PO 0.5 mcg BID [facility] Administration Cholecalciferol 2,000 unit 02/14/19 22:00 02/15/19 09:00 Vitamin D3 PO 2,000 unit BID [facility] Administration Epoetin Porfirio 20,000 unit 02/15/19 12:00 Procrit SUB-Q 2XW [facility] Gabapentin 300 mg 02/14/19 22:00 02/15/19 09:00 Neurontin PO 300 mg BID [facility] Administration Heparin Sodium (Porcine) 5,000 unit 02/14/19 22:00 02/15/19 10:00 Heparin SUB-Q Not Given Q12HR [facility] Hydralazine HCl 50 mg 02/14/19 22:00 02/15/19 06:46 Apresoline PO 50 mg Q8HR [facility] Administration Hydroxychloroquine Sulfate 200 mg 02/15/19 10:00 02/15/19 09:01 Plaquenil PO 200 mg QDAY [facility] Administration Sodium Chloride 100 mls @ 999 mls/hr 02/14/19 18:26 Nacl 0.9% IV ONUR PRN Hypotension Azithromycin 500 mg/ Sodium 250 mls @ 250 mls/hr 02/14/19 22:30 02/15/19 03:37 Chloride IV 250 mls/hr Q24H [facility] Administration Protocol Ceftriaxone Sodium 2 gm in 100 mls @ 200 mls/hr 02/15/19 06:00 02/15/19 06:45 Rocephin/Ns 2 Gm/100 Ml IV 200 mls/hr Q24H [facility] Administration Protocol Metoprolol Tartrate 25 mg 02/14/19 22:00 02/15/19 09:00 Lopressor PO 25 mg BID [facility] Administration Nifedipine 60 mg 02/15/19 10:00 02/15/19 09:00 Procardia Xl PO 60 mg QDAY [facility] Administration Ondansetron HCl 8 mg 02/14/19 18:48 Zofran Odt PO Q8H PRN Vomiting Ondansetron HCl 4 mg 02/14/19 18:49 Zofran IV Q8H PRN Nausea And Vomiting Oxycodone HCl 10 mg 02/14/19 20:35 02/15/19 08:58 Roxicodone PO 10 mg Q6H PRN Administration Pain , Severe (7-10) Sevelamer Carbonate 2,400 mg 02/15/19 07:30 02/15/19 09:15 Renvela PO 2,400 mg AC [facility] Administration Sodium Chloride 10 ml 02/14/19 22:00 02/15/19 09:02 Sodium Chloride Flush Syringe 10 Ml IV 10 ml BID [facility] Administration Sodium Chloride 10 ml 02/14/19 18:49 Sodium Chloride Flush Syringe 10 Ml IV PRN PRN LINE FLUSH Torsemide 100 mg 02/14/19 22:00 02/15/19 09:02 Demadex PO 100 mg BID [facility] Administration
--- NOTE | 2019-02-15 12:54 | Consultation ---
History of Present Illness Consult date: 02/15/19 Requesting physician: YASMINE HORAN Consult reason: elevated troponin History of present illness: The pt is 53-year-old male with past medical history of HTN, ESRD on HD started about 5 years ago, anemia of ESRD, also history of renal CA s/p L nephrectomy, mild , mod to severe MS. He was seen in consultation by our practice during recent hospitalization. He presented with c/o SOB and BLE swelling since yesterday. He states that while in the ambulance en route to ED, he also developed chest pain. He is a rather poor historian and provides no additional details. He reports compliance with dialysis and home medication regimen. Echo done 02/07/2019 showed EF 45-50%, mod LVH, LA severely dilated, RA mod dilated, mild with mean gradient of 12mmHg, mitral valve severely thickened and calcified, mod to severe MS with mean gradient 11mmHg and peak gradient 37mmHg. Lexiscan MPI stress test done 02/09/2019 was negative. 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 denies: smoking, alcohol abuse, prescription drug abuse Family history: diabetes, hypertension, other (he does not know the cause of of his parents. Mother in her 50s she was on drugs. Father in his 70s. 2 brothers and 2 sisters are alive and in good health) Medications and Allergies Allergies Allergy/AdvReac Type Severity Reaction Status Date / Time lisinopril Allergy Unknown Verified 02/06/19 20:59 metformin [From Glucophage] Allergy Diarrhea Verified 02/06/19 20:59 Home Medications Medication Instructions Recorded Confirmed Last Taken Type Calcitriol [Rocaltrol] 0.5 mcg PO BID 02/07/19 02/07/19 Unknown History Cholecalciferol (Vitamin D3) 2,000 unit PO BID 02/07/19 02/07/19 Unknown History [Vitamin D3 2,000 UNIT CHEW TAB] Gabapentin [Neurontin] 300 mg PO BID 02/07/19 02/07/19 Unknown History Hydroxychloroquine [Plaquenil] 200 mg PO QDAY 02/07/19 02/07/19 Unknown History NIFEdipine [Adalat cc] 60 mg PO DAILY 02/07/19 02/07/19 Unknown History Ondansetron [Zofran ODT TAB] 8 mg PO PRN PRN 02/07/19 02/07/19 Unknown History Sevelamer Carbonate [Renvela] 2.4 gm PO TIDWM 02/07/19 02/07/19 Unknown History Torsemide [Demadex] 100 mg PO BID 02/07/19 02/07/19 Unknown History oxyCODONE ER [OxyCONTIN ER TAB] 10 mg PO Q6HR PRN 02/07/19 02/07/19 Unknown History Metoprolol [Lopressor TAB] 25 mg PO BID #60 tablet 02/09/19 Unknown Rx hydrALAZINE [Apresoline TAB] 50 mg PO Q8HR #90 tablet 02/09/19 Unknown Rx Active Meds: Active Medications Acetaminophen (Tylenol) 650 mg PO Q4H PRN PRN Reason: Pain MILD(1-3)/Fever >100.5/OSBORN Last Admin: 02/15/19 00:18 Dose: 650 mg Documented by: Albuterol (Proventil) 2.5 mg IH Q4HRT PRN PRN Reason: Shortness Of Breath Calcitriol (Rocaltrol) 0.5 mcg PO BID [facility] Last Admin: 02/15/19 09:00 Dose: 0.5 mcg Documented by: Cholecalciferol (Vitamin D3) 2,000 unit PO BID [facility] Last Admin: 02/15/19 09:00 Dose: 2,000 unit Documented by: Epoetin Porfirio (Procrit) 20,000 unit SUB-Q 2XW [facility] Gabapentin (Neurontin) 300 mg PO BID [facility] Last Admin: 02/15/19 09:00 Dose: 300 mg Documented by: Heparin Sodium (Porcine) (Heparin) 5,000 unit SUB-Q Q12HR [facility] Last Admin: 02/15/19 10:00 Dose: Not Given Documented by: Hydralazine HCl (Apresoline) 50 mg PO Q8HR [facility] Last Admin: 02/15/19 06:46 Dose: 50 mg Documented by: Hydroxychloroquine Sulfate (Plaquenil) 200 mg PO QDAY [facility] Last Admin: 02/15/19 09:01 Dose: 200 mg Documented by: Sodium Chloride (Nacl 0.9%) 100 mls @ 999 mls/hr IV ONUR PRN PRN Reason: Hypotension Azithromycin 500 mg/ Sodium (Chloride) 250 mls @ 250 mls/hr IV Q24H [facility]; Protocol Last Admin: 02/15/19 03:37 Dose: 250 mls/hr Documented by: Ceftriaxone Sodium (Rocephin/Ns 2 Gm/100 Ml) 2 gm in 100 mls @ 200 mls/hr IV Q24H [facility]; Protocol Last Admin: 02/15/19 06:45 Dose: 200 mls/hr Documented by: Sodium Chloride (Nacl 0.9% 500 Ml) 500 mls @ 50 mls/hr IV DIRECT [facility] Stop: 02/15/19 22:59 Metoprolol Tartrate (Lopressor) 25 mg PO BID [facility] Last Admin: 02/15/19 09:00 Dose: 25 mg Documented by: Nifedipine (Procardia Xl) 60 mg PO QDAY [facility] Last Admin: 02/15/19 09:00 Dose: 60 mg Documented by: Ondansetron HCl (Zofran Odt) 8 mg PO Q8H PRN PRN Reason: Vomiting Ondansetron HCl (Zofran) 4 mg IV Q8H PRN PRN Reason: Nausea And Vomiting Oxycodone HCl (Roxicodone) 10 mg PO Q6H PRN PRN Reason: Pain , Severe (7-10) Last Admin: 02/15/19 08:58 Dose: 10 mg Documented by: Sevelamer Carbonate (Renvela) 2,400 mg PO AC [facility] Last Admin: 02/15/19 09:15 Dose: 2,400 mg Documented by: Sodium Chloride (Sodium Chloride Flush Syringe 10 Ml) 10 ml IV BID [facility] Last Admin: 02/15/19 09:02 Dose: 10 ml Documented by: Sodium Chloride (Sodium Chloride Flush Syringe 10 Ml) 10 ml IV PRN PRN PRN Reason: LINE FLUSH Torsemide (Demadex) 100 mg PO BID [facility] Last Admin: 02/15/19 09:02 Dose: 100 mg Documented by: Review of Systems Constitutional: no fever, no chills, no sweats Ears, nose, mouth and throat: no ear pain, no nose pain, no sinus pressure, no sinus pain Cardiovascular: chest pain, edema, shortness of breath, dyspnea on exertion, leg edema, decreased exercise tolerance, no orthopnea, no palpitations, no rapid/irregular heart beat, no syncope Respiratory: shortness of breath, dyspnea on exertion, no cough, no congestion, no wheezing, no pain on inspiration Gastrointestinal: no abdominal pain, no nausea, no vomiting, no diarrhea, no constipation, no change in bowel habits Genitourinary Male: no dysuria, no hematuria, no flank pain, no discharge, no urinary frequency, no urinary hesitancy Musculoskeletal: no neck stiffness, no neck pain, no shooting arm pain, no arm numbness/tingling, no low back pain Integumentary: no rash, no pruritis, no redness, no sores, no wounds Neurological: no head injury, no paralysis, no weakness, no parathesias, no numbness, no tingling, no seizures, no syncope Psychiatric: no anxiety Endocrine: no cold intolerance, no heat intolerance Hematologic/Lymphatic: no easy bruising, no easy bleeding Allergic/Immunologic: no urticaria, no wheezing Physical Examination Vital Signs Resp 12 02/14/19 15:39 General appearance: no acute distress HEENT: Positive: PERRL, Normocephaly, Mucus Membranes Moist Neck: Positive: neck supple, trachea midline Cardiac: Positive: Reg Rate and Rhythm, S1/S2, Systolic Murmur Lungs: Positive: Decreased Breath Sounds Neuro: Positive: Grossly Intact Abdomen: Positive: Soft. Negative: Tender Skin: Negative: Rash Musculoskeletal: No Pain Extremities: Present: +1 Edema (BLE) Results 02/15/19 07:06 02/15/19 07:06 Coagulation 02/14/19 Range/Units 16:42 PT 14.7 (12.2-14.9) Sec. INR 1.08 (0.87-1.13) APTT 40.4 H (24.2-36.6) Sec. Lipids 02/14/19 Range/Units 16:42 Triglycerides 63 (2-149) mg/dL Cholesterol 143 (50-199) mg/dL HDL Cholesterol 75 H (40-59) mg/dL Cholesterol/HDL Ratio 1.90 % CBC 02/14/19 02/15/19 Range/Units 16:42 07:06 WBC 7.1 7.1 (4.5-11.0) K/mm3 RBC 2.43 L 2.52 L (3.65-5.03) M/mm3 Hgb 7.5 L 7.7 L (11.8-15.2) gm/dl Hct 22.5 L 23.2 L (35.5-45.6) % Plt Count 171 182 (140-440) K/mm3 Lymph # 0.5 L 0.4 L (1.2-5.4) K/mm3 Andrews # 0.6 0.8 (0.0-0.8) K/mm3 Eos # 0.2 0.2 (0.0-0.4) K/mm3 Baso # 0.1 0.1 (0.0-0.1) K/mm3 Comprehensive Metabolic Panel 02/14/19 02/15/19 Range/Units 16:42 07:06 Sodium 132 L 139 D (137-145) mmol/L Potassium 5.8 H 3.9 D (3.6-5.0) mmol/L Chloride 89.4 L 97.3 L (98-107) mmol/L Carbon Dioxide 26 30 (22-30) mmol/L BUN 54 H 30 H (9-20) mg/dL Creatinine 8.1 H 5.7 H (0.8-1.5) mg/dL Glucose 88 115 H (75-100) mg/dL Calcium 9.9 9.7 (8.4-10.2) mg/dL - Imaging and Cardiology Echo: report reviewed (02/07/2019 showed EF 45-50%, mod LVH, LA severely dilated, RA mod dilated, mild with mean gradient of 12mmHg, mitral valve severely thickened and calcified, mod to severe MS with mean gradient 11mmHg and peak gradient 37mmHg. ) EKG: report reviewed, image reviewed EKG interpretations - Telemetry EKG Rhythm: Sinus Rhythm - EKG Sinus rhythms and dysrhythmias: sinus rhythm Assessment and Plan Pt presented with apparent HF and also c/o chest pain. He was recently diagnosed with mild and mod to severe MS per echo done 02/07/2019 and OP MANUELA for further evaluation was planned. Pt also underwent lexiscan MPI stress test done 09/2019 was negative. Given his presentation and presence of recurrent chest pain, coronary angiography recommended for definitive diagnosis. Indications, potential risks and benefits of LHC reviewed with pt and he is agreeable to proceed in AM. NPO after MN. The patient has been seen in conjunction with Dr. Anahi Velasquez who agrees with the assessment and plan of care. - Patient Problems (1) Acute HFrEF (heart failure with reduced ejection fraction) Current Visit: Yes Status: Acute (2) Chest pain Current Visit: Yes Status: Acute (3) NSTEMI (non-ST elevated myocardial infarction) Current Visit: Yes Status: Acute (4) ESRD (end stage renal disease) on dialysis Current Visit: Yes Status: Chronic (5) Accelerated hypertension Current Visit: Yes Status: Acute (6) Aortic stenosis Current Visit: Yes Status: Chronic (7) Mitral stenosis Current Visit: Yes Status: Chronic (8) Anemia Current Visit: Yes Status: Chronic (9) History of kidney cancer Current Visit: Yes Status: Chronic
[2019-02-15] MEDS ORDERED: NACL 0.9% 500 ML 500 ML IV SCH (13:00)
[2019-02-16] MEDS: ROXICODONE PO PRN ×2 (00:41→17:47)
[2019-02-16] MEDS: APRESOLINE PO SCH ×2 (05:26→14:11)
[2019-02-16] MEDS: ROCEPHIN/NS 2 GM/100 ML 2 GM/100 ML BAG IV SCH (05:53)
[2019-02-16 07:49] LABS: Basophils # (Auto) 0.1 K/mm3 (0.0-0.1); Basophils % (Auto) 0.9 % (0.0-1.8); Eosinophils # (Auto) 0.2 K/mm3 (0.0-0.4); Eosinophils % (Auto) 2.7 % (0.0-4.3); Hematocrit 22.1 % (35.5-45.6); Hemoglobin 7.5 gm/dl (11.8-15.2); Lymphocytes # (Auto) 0.7 K/mm3 (1.2-5.4); Mean Corpuscular HGB Conc 34 % (32-34); Mean Corpuscular Volume 92 fl (84-94); Monocytes # (Auto) 0.9 K/mm3 (0.0-0.8); Platelet Count 170 K/mm3 (140-440); Red Cell Distribution Width 18.3 % (13.2-15.2)
[2019-02-16 07:59] LABS: INR 1.05 (0.87-1.13)
[2019-02-16 08:04] LABS: Calcium 9.9 mg/dL (8.4-10.2)
[2019-02-16] MEDS ORDERED: HEPARIN/NS 5000 UNIT/500ML(CATH LAB) 1,000 ML IR ONE (08:17)
[2019-02-16] MEDS ORDERED: HEPARIN 10,000 UNITS/10 ML ONE (08:17)
[2019-02-16] MEDS ORDERED: VERSED ONE (08:17)
[2019-02-16] MEDS ORDERED: CALAN ONE (08:18)
[2019-02-16] MEDS ORDERED: NITROGLYCERIN SYRINGE 0 ML ONE (08:18)
[2019-02-16] MEDS ORDERED: XYLOCAINE 2% INFILTRATI ONE (08:18)
[2019-02-16] MEDS ORDERED: SUBLIMAZE ONE (08:18)
[2019-02-16] MEDS ORDERED: NACL 0.9% 500 ML 500 ML ONE (08:20)
[2019-02-16] MEDS ORDERED: ECOTRIN PO ONE ×2 (08:56→08:58)
--- NOTE | 2019-02-16 09:20 | Progress Note ---
Assessment and Plan - Patient Problems (1) Shortness of breath at rest Current Visit: Yes Status: Acute Plan to address problem: X-ray shows pleural effusion on the right with possible infiltrate and also pulmonary edema. Symptoms improved with fluid removal on dialysis yesterday. Hemodialysis again today after cardiac catheterization (2) Chest pain Current Visit: Yes Status: Acute Plan to address problem: Discussed with paper control clerk. For cardiac catheterization in the morning (3) Hyperkalemia Current Visit: Yes Status: Acute Plan to address problem: Improved with dialysis yesterday (4) Pleural effusion Current Visit: Yes Status: Acute Plan to address problem: Hemodialysis today after cardiac Catheterization for fluid removal and solute clearance (5) Hypertensive emergency Current Visit: No Status: Acute Plan to address problem: Blood pressure was high on presentation probably volume related. Improving with fluid removal on dialysis. Follow-up blood pressure (6) Symptomatic anemia Current Visit: No Status: Acute Plan to address problem: Follow-up hemoglobin and symptoms. Give high-dose Epogen on dialysis (7) Aortic stenosis Current Visit: Yes Status: Chronic Plan to address problem: Follow-up with paper control clerk (8) End stage renal disease Current Visit: No Status: Chronic Plan to address problem: Hemodialysis this morning Subjective Date of service: 02/16/19 Principal diagnosis: End stage renal disease Interval history: Patient seen lying in bed in the catheter lab. Had a long night. Could not sleep. Denies any chest pain or shortness of breath overnight. Objective - Exam Narrative Exam: Obese, Middle-aged -[place] male lying in bed in no acute distress HEENT: NCAT, pink oral mucous membrane Neck: Supple, no venous distention CVS: S1S2 RRR with systolic murmur, rub or gallop Chest: Clear to auscultation Abdomen: Protuberant, soft, nontender, no organomegaly, bowel sounds are present Extremities: Trace edema Neuro: Awake, alert no focal deficits - Vital Signs Vital signs: Vital Signs - 12hr 02/15/19 02/16/19 23:22 05:19 Temperature 97.9 F 98.5 F Pulse Rate 82 82 Respiratory 20 20 Rate Blood Pressure 121/64 165/79 O2 Sat by Pulse 92 94 Oximetry - Lab 02/16/19 07:40 02/16/19 07:40 Most recent lab results Calcium 9.9 mg/dL (8.4-10.2) 02/16/19 07:40 Phosphorus 6.70 mg/dL (2.5-4.5) H 02/16/19 07:40 Medications & Allergies - Medications Allergies/Adverse Reactions: Allergies lisinopril Allergy (Verified 02/06/19 20:59) Unknown metformin [From Glucophage] Allergy (Verified 02/06/19 20:59) Diarrhea Home Medications: Home Medications Medication Instructions Recorded Confirmed Last Taken Type Calcitriol [Rocaltrol] 0.5 mcg PO BID 02/07/19 02/07/19 Unknown History Cholecalciferol (Vitamin D3) 2,000 unit PO BID 02/07/19 02/07/19 Unknown History [Vitamin D3 2,000 UNIT CHEW TAB] Gabapentin [Neurontin] 300 mg PO BID 02/07/19 02/07/19 Unknown History Hydroxychloroquine [Plaquenil] 200 mg PO QDAY 02/07/19 02/07/19 Unknown History NIFEdipine [Adalat cc] 60 mg PO DAILY 02/07/19 02/07/19 Unknown History Ondansetron [Zofran ODT TAB] 8 mg PO PRN PRN 02/07/19 02/07/19 Unknown History Sevelamer Carbonate [Renvela] 2.4 gm PO TIDWM 02/07/19 02/07/19 Unknown History Torsemide [Demadex] 100 mg PO BID 02/07/19 02/07/19 Unknown History oxyCODONE ER [OxyCONTIN ER TAB] 10 mg PO Q6HR PRN 02/07/19 02/07/19 Unknown History Metoprolol [Lopressor TAB] 25 mg PO BID #60 tablet 02/09/19 Unknown Rx hydrALAZINE [Apresoline TAB] 50 mg PO Q8HR #90 tablet 02/09/19 Unknown Rx Active Medications: Generic Name Dose Route Start Last Admin Trade Name Freq PRN Reason Stop Dose Admin Acetaminophen 650 mg 02/14/19 18:49 02/15/19 00:18 Tylenol PO 650 mg Q4H PRN Administration Pain MILD(1-3)/Fever >100.5/OSBORN Albuterol 2.5 mg 02/14/19 18:49 Proventil IH Q4HRT PRN Shortness Of Breath Calcitriol 0.5 mcg 02/14/19 22:00 02/15/19 23:40 Rocaltrol PO 0.5 mcg BID [facility] Administration Cholecalciferol 2,000 unit 02/14/19 22:00 02/15/19 22:23 Vitamin D3 PO 2,000 unit BID [facility] Administration Epoetin Porfirio 20,000 unit 02/16/19 12:00 Procrit SUB-Q TuTh@1200 [facility] Gabapentin 300 mg 02/14/19 22:00 02/15/19 22:23 Neurontin PO 300 mg BID [facility] Administration Heparin Sodium (Porcine) 5,000 unit 02/14/19 22:00 02/15/19 22:23 Heparin SUB-Q 5,000 unit Q12HR [facility] Administration Hydralazine HCl 50 mg 02/14/19 22:00 02/16/19 05:26 Apresoline PO 50 mg Q8HR [facility] Administration Hydroxychloroquine Sulfate 200 mg 02/15/19 10:00 02/15/19 09:01 Plaquenil PO 200 mg QDAY [facility] Administration Sodium Chloride 100 mls @ 999 mls/hr 02/14/19 18:26 Nacl 0.9% IV ONUR PRN Hypotension Azithromycin 500 mg/ Sodium 250 mls @ 250 mls/hr 02/14/19 22:30 02/15/19 22:25 Chloride IV 250 mls/hr Q24H [facility] Administration Protocol Ceftriaxone Sodium 2 gm in 100 mls @ 200 mls/hr 02/15/19 06:00 02/16/19 05:53 Rocephin/Ns 2 Gm/100 Ml IV 200 mls/hr Q24H [facility] Administration Protocol Metoprolol Tartrate 25 mg 02/14/19 22:00 02/15/19 22:23 Lopressor PO 25 mg BID [facility] Administration Nifedipine 60 mg 02/15/19 10:00 02/15/19 09:00 Procardia Xl PO 60 mg QDAY [facility] Administration Ondansetron HCl 8 mg 02/14/19 18:48 Zofran Odt PO Q8H PRN Vomiting Ondansetron HCl 4 mg 02/14/19 18:49 Zofran IV Q8H PRN Nausea And Vomiting Oxycodone HCl 10 mg 02/14/19 20:35 02/16/19 00:41 Roxicodone PO 10 mg Q6H PRN Administration Pain , Severe (7-10) Sevelamer Carbonate 2,400 mg 02/15/19 07:30 02/15/19 16:23 Renvela PO 2,400 mg AC [facility] Administration Sodium Chloride 10 ml 02/14/19 22:00 02/15/19 23:40 Sodium Chloride Flush Syringe 10 Ml IV 10 ml BID [facility] Administration Sodium Chloride 10 ml 02/14/19 18:49 Sodium Chloride Flush Syringe 10 Ml IV PRN PRN LINE FLUSH Torsemide 100 mg 02/14/19 22:00 02/15/19 22:22 Demadex PO 100 mg BID [facility] Administration
[2019-02-16] MEDS ORDERED: APRESOLINE ONE (10:13)
[2019-02-16] MEDS: TYLENOL PO PRN (11:10)
[2019-02-16] MEDS ORDERED: TYLENOL ONE (11:12)
--- NOTE | 2019-02-16 11:46 | Cardiac Catherization Report ---
CARDIAC CATHETERIZATION REFERRING PHYSICIAN: Hospitalist service. INDICATION FOR PROCEDURE: The patient is a pleasant 53-year-old -[place] gentleman who presents here with recurrent heart failure, chest pain, and found to have severe mitral stenosis on echocardiogram in last month, referred for right and left heart catheterization. Risks, benefits, and potential alternatives were explained in length prior to obtaining informed consent. PROCEDURE IN DETAIL: The patient was brought to the catheterization lab in a postabsorptive state, prepped and draped in sterile fashion. We used a groin approach, 8 mL of 2% lidocaine used to anesthetize the right groin. A standard 5-Stateless sheath used to cannulate the right common femoral artery via modified Seldinger technique. ____ 8-Stateless sheath is used to engage the right femoral vein. At this point, we turned our attention to the right heart catheterization. A Sawyer catheter was placed under fluoroscopic guidance in the pulmonary capillary wedge pressure position. Pulmonary wedge pressures obtained. Next, right coronary catheter was placed into the left ventricle. Simultaneous LV pressures and wedge pressures were obtained to further interrogate the mitral valve area. Next, at this point, the remainder of the right heart catheterization was performed with PA, RV, RA, IVC pressures and sats. Right heart catheter was removed. Next, remainder of the left heart catheterization was performed. A JR4 catheter used for left ventriculography in the DURAN and BENGALI projections. Next, a right coronary angiography was performed. Next, exchanged for a JL3.5 catheter used to engage the left main. No damping or ventricularization. Cineangiography performed in all projections. Next, catheter was removed from the body of wire, sheath removed. Manual pressure used to achieve hemostasis. DATA: Left ventriculography reveals normal systolic performance with estimated ejection fraction of 55-60%. No evidence of aortic stenosis. CORONARY ANATOMY: This is a right dominant system. Right coronary is a large vessel, courses AV groove, distally bifurcates in the posterior descending and posterolateral branch. No discrete stenosis noted. Left main without significant disease, bifurcates in left anterior descending and left circumflex, no obstructive disease noted in the left system. The patient remained in normal sinus rhythm throughout the procedure. Aortic pressure is 170/80, LV pressure is 170. LVEDP of 15 mmHg. No evidence of significant mitral regurgitation. No evidence of significant aortic stenosis. AO sat is 90, pulmonary wedge pressure is 33, pulmonary arterial pressure is 62 with a mean of 32. RV peak is 73 with a mean of 17. RA mean is 13. Saturations are 65% across the board in the right heart. Cardiac index is 5.2. Cardiac output is 11.0. Qp/Qs is 1.0. Mean mitral valve gradient is 24, area appears to be less than 1. CONCLUSIONS: 1. No angiographic evidence of significant epicardial coronary disease in this right dominant system. 2. Normal left ventricular systolic performance with estimated ejection fraction of 55-60%. 3. Normal LVEDP. 4. No evidence of aortic stenosis. 5. Probable at least moderate to severe mitral stenosis with a mean gradient of 24 mmHg. 6. Pulmonary hypertension with a pulmonary arterial systolic pressure 62 mmHg. At this point, we will review previous transthoracic echocardiogram. Follow up with a transesophageal echocardiogram tomorrow. We will further plan contingent on these results. The patient is clinically stable, will undergo hemodialysis later today. [facility]# [id number] PORFIRIO/DUNCAN
[2019-02-16] MEDS ORDERED: PROCRIT SUB-Q SCH (12:00)
--- NOTE | 2019-02-16 12:38 | Progress Note ---
Assessment and Plan S/p [facility] this AM which showed normal coronaries, no , probable at least moderate to severe mitral stenosis, pulm HTN. Pt to be tx to [place] where Dr. Pike will accept for further eval of MS and possible surgical intervention. The patient has been seen in conjunction with Dr. Anahi Velasquez who agrees with the assessment and plan of care. - Patient Problems (1) Acute HFrEF (heart failure with reduced ejection fraction) Current Visit: Yes Status: Acute (2) Chest pain Current Visit: Yes Status: Acute (3) NSTEMI (non-ST elevated myocardial infarction) Current Visit: Yes Status: Acute (4) ESRD (end stage renal disease) on dialysis Current Visit: Yes Status: Chronic (5) Accelerated hypertension Current Visit: Yes Status: Acute (6) Mitral stenosis Current Visit: Yes Status: Chronic (7) Anemia Current Visit: Yes Status: Chronic (8) History of kidney cancer Current Visit: Yes Status: Chronic Subjective Date of service: 02/16/19 Principal diagnosis: End stage renal disease Interval history: pt for [facility]. no current cardiac complaints. Objective Last Vital Signs Temp 98.2 F 02/16/19 10:30 Pulse 94 H 02/16/19 11:30 Resp 20 02/16/19 11:30 BP 177/89 02/16/19 11:30 Pulse Ox 99 02/16/19 11:30 - Physical Examination General: No Apparent Distress HEENT: Positive: PERRL, Normocephaly, Mucus Membranes Moist Neck: Positive: neck supple, trachea midline Cardiac: Positive: Reg Rate and Rhythm, S1/S2, Systolic Murmur Lungs: Positive: Decreased Breath Sounds Neuro: Positive: Grossly Intact Abdomen: Positive: Soft. Negative: Tender Skin: Negative: Rash Musculoskeletal: No Pain Extremities: Present: +1 Edema (BLE) - Labs and Meds Coagulation 02/16/19 Range/Units 07:40 PT 14.3 (12.2-14.9) Sec. INR 1.05 (0.87-1.13) CBC 02/16/19 Range/Units 07:40 WBC 8.7 (4.5-11.0) K/mm3 RBC 2.40 L (3.65-5.03) M/mm3 Hgb 7.5 L (11.8-15.2) gm/dl Hct 22.1 L (35.5-45.6) % Plt Count 170 (140-440) K/mm3 Lymph # 0.7 L (1.2-5.4) K/mm3 [place] # 0.9 H (0.0-0.8) K/mm3 Eos # 0.2 (0.0-0.4) K/mm3 Baso # 0.1 (0.0-0.1) K/mm3 Comprehensive Metabolic Panel 02/16/19 Range/Units 07:40 Sodium 137 (137-145) mmol/L Potassium 4.5 (3.6-5.0) mmol/L Chloride 95.2 L (98-107) mmol/L Carbon Dioxide 25 (22-30) mmol/L BUN 45 H (9-20) mg/dL Creatinine 8.0 H (0.8-1.5) mg/dL Glucose 97 (75-100) mg/dL Calcium 9.9 (8.4-10.2) mg/dL - Imaging and Cardiology EKG: report reviewed, image reviewed Echo: report reviewed (02/07/2019 showed EF 45-50%, mod LVH, LA severely dilated, RA mod dilated, mild with mean gradient of 12mmHg, mitral valve severely thickened and calcified, mod to severe MS with mean gradient 11mmHg and peak gradient 37mmHg. ) - EKG Sinus rhythms and dysrhythmias: sinus rhythm
--- NOTE | 2019-02-16 13:03 | Discharge Summary ---
Providers - Providers Date of Admission: 02/14/19 18:50 Date of discharge: 02/16/19 Attending physician: YASMINE HORAN 02/14/19 18:01 Consult to Physician [CONS] Stat Comment: Consulting Provider: MATTEO LYLES Physician Instructions: Reason For Exam: hyperkalemia, pleural effusion 02/15/19 09:20 Consult to Physician [CONS] Routine Comment: Consulting Provider: EDIN AUSTIN Physician Instructions: Reason For Exam: elevated trop 02/16/19 10:19 Consult to Cardiac Rehabilitation [CONS] Routine Reason For Exam: Cardiac Rehab Evaluation Primary care physician: CAR RECORD CLERK Hospitalization Reason for admission: sob Condition: Stable Hospital course: The pt is 53-year-old male with past medical history of HTN, ESRD on HD started about 5 years ago, anemia of ESRD, also history of renal CA s/p L nephrectomy, mild , mod to severe MS who presented with c/o 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 He also c/o chest pain. He is a rather poor historian and provides no additional details. He reported compliance with dialysis and home medication regimen. Patient had a recent hospitalization approximately one week ago with Echo done 02/07/2019 showed EF 45-50%, mod LVH, LA severely dilated, RA mod dilated, mild with mean gradient of 12mmHg, mitral valve severely thickened and calcified, mod to severe MS with mean gradient 11mmHg and peak gradient 37mmHg. Also during the hospitalization patient had Lexiscan MPI stress test done 02/09/2019 that was negative. On this admission, labs showed sodium was low at 132 mmol per liter and potassium high at 5.8 mmol per liter. Chest x-ray also showed pulmonary edema with right Pleural effusion and possible infiltrates on the right lower lobe. Pulmonary The patient was admitted with diagnosis of acute hypoxemic respiratory failure, acute heart failure with reduced ejection fraction, chest pain with elevated troponin, hyperkalemia, healthcare associated right lower lobe pneumonia with parapneumonic effusion, anemia of ESRD and accelerated hypertension. The patient was seen by cardiology and nephrology consultation. Patient underwent LHC this AM which showed normal coronaries, no , probable at least moderate to severe mitral stenosis, pulm HTN. Cardiology recommended that the patient be transferred to [facility] under the care of Dr. Pike for further eval of MS and possible surgical intervention. Dedicated discharge time 38 minutes. Disposition: DC/TX-02 SHRT-TRM GEN HOSP IP Time spent for discharge: 38 - Discharge Diagnoses (1) Accelerated hypertension Status: Acute (2) Acute HFrEF (heart failure with reduced ejection fraction) Status: Acute (3) Chest pain Status: Acute (4) Dyspnea Status: Acute (5) Elevated troponin Status: Acute (6) Hyperkalemia Status: Acute (7) Pleural effusion Status: Acute (8) RLL pneumonia Status: Acute Qualifiers: Pneumonia type: due to unspecified organism Qualified Code(s): J18.1 - Lobar pneumonia, unspecified organism (9) Respiratory failure Status: Acute Qualifiers: Chronicity: acute Respiratory failure complication: hypoxia Qualified Code(s): J96.01 - Acute respiratory failure with hypoxia (10) Anemia Status: Chronic (11) ESRD (end stage renal disease) on dialysis Status: Chronic Core Measure Documentation - Palliative Care Palliative Care/ Comfort Measures: Not Applicable - Core Measures Any of the following diagnoses?: heart failure - Heart Failure Discharge Requirements DB/ARB for LVSD if EF <40%: No Reason for no DB/ARB: Renal impairment Beta neo at discharge: Yes Exam - Constitutional Vitals: Temp Pulse Resp BP Pulse Ox 98.2 F 97 H 19 174/84 98 02/16/19 10:30 02/16/19 12:30 02/16/19 12:30 02/16/19 12:30 02/16/19 12:30 General appearance: Present: no acute distress, well-nourished - EENT Eyes: Present: PERRL ENT: hearing intact, clear oral mucosa - Neck Neck: Present: supple, normal ROM - Respiratory Respiratory effort: normal Respiratory: bilateral: CTA - Cardiovascular Heart Sounds: Present: S1 & S2. Absent: rub, click - Extremities Extremities: pulses symmetrical, No edema Peripheral Pulses: within normal limits - Abdominal General gastrointestinal: Present: soft, non-tender, non-distended, normal bowel sounds Male genitourinary: Present: normal - Integumentary Integumentary: Present: clear, warm, dry - Musculoskeletal Musculoskeletal: gait normal, strength equal bilaterally - Psychiatric Psychiatric: appropriate mood/affect, intact judgment & insight - Neurologic Neurologic: CNII-XII intact, moves all extremities Plan Activity: advance as tolerated Weight Bearing Status: Weight Bear as Tolerated Diet: low fat, low cholesterol, low salt Follow up with: PRIMARY CARE, [Primary Care Provider] - 3-5 Days EDIN AUSTIN MD [Staff Physician] - 7 Days MATTEO LYLES MD [Staff Physician] - 7 Days
[2019-02-16] MEDS: LOPRESSOR PO SCH (14:11)
[2019-02-16 18:20] VITALS: BP 179/89
[2019-02-16] MEDS: RENVELA PO SCH ×2 (18:34→18:35)
[2019-02-16] MEDS: PROCARDIA XL PO SCH (18:35)
[2019-02-16] MEDS: NEURONTIN PO SCH (20:09)
[2019-02-16] MEDS: PLAQUENIL PO SCH (20:09)
[2019-02-16] MEDS: SODIUM CHLORIDE FLUSH SYRINGE 10 ML IV SCH (20:09)
[2019-02-16] MEDS: DEMADEX PO SCH (20:09)
[2019-02-16] MEDS: HEPARIN SUB-Q SCH (20:09)
[2019-02-16] MEDS: ROCALTROL PO SCH (20:09)
[2019-02-16] MEDS: VITAMIN D3 PO SCH (20:10)
== END 2019-02-16 20:05 | disposition short-term general hospital (02) | DRG 280 ==
LOC: ED 15:26 → 3A 18:50
PROVIDERS: ADMIT Internal Medicine; ATTEND Hospitalist
PROC: 5A1D70Z Performance of Urinary Filtration, Intermittent, Less than 6 Hours Per Day (ICD-10-PCS; 2019-02-14)
PROC: 4A023N8 Measurement of Cardiac Sampling and Pressure, Bilateral, Percutaneous Approach (ICD-10-PCS; principal; 2019-02-16)
PROC: B2111ZZ Fluoroscopy of Multiple Coronary Arteries using Low Osmolar Contrast (ICD-10-PCS; 2019-02-16)
PROC: B2151ZZ Fluoroscopy of Left Heart using Low Osmolar Contrast (ICD-10-PCS; 2019-02-16)
PROC: 5A1D70Z Performance of Urinary Filtration, Intermittent, Less than 6 Hours Per Day (ICD-10-PCS; 2019-02-16)
DX: I21.4 Non-ST elevation (NSTEMI) myocardial infarction (principal); J18.1 Lobar pneumonia, unspecified organism; N18.6 End stage renal disease; J96.01 Acute respiratory failure with hypoxia; I50.21 Acute systolic (congestive) heart failure; I13.2 Hypertensive heart and chronic kidney disease with heart failure and with stage 5 chronic kidney disease, or end stage renal disease; I16.1 Hypertensive emergency; E87.5 Hyperkalemia; D63.1 Anemia in chronic kidney disease; I27.20 Pulmonary hypertension, unspecified; I05.0 Rheumatic mitral stenosis; Z96.659 Presence of unspecified artificial knee joint; Z90.5 Acquired absence of kidney; Z82.49 Family history of ischemic heart disease and other diseases of the circulatory system; Z83.3 Family history of diabetes mellitus; Z79.899 Other long term (current) drug therapy
CPT/HCPCS: 36415; 71045; 80048; 80061; 82962; 83880; 84100; 84484; 85025; 85610; 85730; 93005; 93010; 93460; 94760; G0378; J0360; J0456; J0696; J1644; J1815; J2250; J3010; J7030; J7040; J7050; Q9967

== ENCOUNTER 2019-04-02 15:18 | Emergency (ER) | payer MEDICARE, OTHER ==
--- NOTE | 2019-04-02 16:40 | Emergency Department Report ---
ED Shortness of Breath HPI - General Chief Complaint: Dyspnea/Respdistress Stated Complaint: JERALD Time Seen by Provider: 04/02/19 16:27 Source: patient, EMS Mode of arrival: Stretcher Limitations: No Limitations - History of Present Illness Initial Comments: Patient is 53 years old male with history of end-stage renal disease on home hemodialysis. Patient also had a recent mitral valve replacement at [facility] on 03/01/2019. Patient stated that he was doing his dialysis today and all of a sudden his vital signs oral drop with oxygen saturation of 78%. Patient started on 2 L nasal cannula and his oxygen saturation went up to 99%. Patient denied any chest pain but stated that he has been having significant shortness of breath since he left the hospital. He said he called his cardiothoracic surgeon and they told him to follow up as an outpatient. Patient stated that there is no difference in his symptoms before and after the surgery. Patient is asking for home oxygen. Patient denied any fever or chills. MD Complaint: shortness of breath - Related Data Home Medications Medication Instructions Recorded Confirmed Last Taken Sevelamer Carbonate [Renvela] 2.4 gm PO TIDWM 02/07/19 04/02/19 Unknown Previous Rx's Medication Instructions Recorded Last Taken Type ALBUTEROL NEB's [Proventil 0.083% 2.5 mg IH Q4HRT PRN nebu 02/16/19 Unknown Rx NEBS] Acetaminophen [Acetaminophen TAB] 650 mg PO Q4H PRN tablet 02/16/19 Unknown Rx Calcitriol [Rocaltrol] 0.5 mcg PO BID capsule 02/16/19 Unknown Rx Cholecalciferol Vit D3 [Vitamin D3 2,000 unit PO BID tablet 02/16/19 Unknown Rx 1,000 UNIT TAB] Gabapentin [Neurontin] 300 mg PO BID capsule 02/16/19 Unknown Rx Hydroxychloroquine [Plaquenil] 200 mg PO QDAY tablet 02/16/19 Unknown Rx Metoprolol [Lopressor TAB] 25 mg PO BID tablet 02/16/19 Unknown Rx NIFEdipine XL [Procardia Xl] 60 mg PO QDAY tablet 02/16/19 Unknown Rx Ondansetron [Zofran ODT TAB] 8 mg PO Q8H PRN tab.rapdis 02/16/19 Unknown Rx Sevelamer Carbonate [Renvela] 2,400 mg PO AC tablet 02/16/19 Unknown Rx Torsemide [Demadex] 100 mg PO BID tablet 02/16/19 Unknown Rx hydrALAZINE [Apresoline TAB] 50 mg PO Q8HR tablet 02/16/19 Unknown Rx oxyCODONE [roxiCODONE] 10 mg PO Q6H PRN tablet 02/16/19 Unknown Rx Allergies Allergy/AdvReac Type Severity Reaction Status Date / Time lisinopril Allergy Unknown Verified 02/06/19 20:59 metformin [From Glucophage] Allergy Diarrhea Verified 02/06/19 20:59 ED Review of Systems ROS: Stated complaint: JERALD Other details as noted in HPI Comment: All other systems reviewed and negative Constitutional: denies: chills, fever Respiratory: orthopnea, shortness of breath, SOB with exertion, SOB at rest. denies: cough, wheezing Cardiovascular: denies: chest pain, palpitations Gastrointestinal: denies: abdominal pain, nausea, vomiting, diarrhea, constipation, hematemesis, melena, hematochezia Neurological: denies: headache ED Past Medical Hx - Past Medical History Previous Medical History?: Yes Hx Congestive Heart Failure: No Hx Diabetes: No Hx Renal Disease: Yes (ESRD. Home hemodialysis) Hx of Cancer: Yes (renal cancer (removed 2019)) Hx Asthma: Yes (As a Child) Hx COPD: No Additional medical history: Renal Cancer (2019 removed) - Surgical History Past Surgical History?: Yes Additional Surgical History: kidney, tonsillectomy, left rotator cuff,knee. mitral valve replaced 03/01/19 @ [place] - Social History Smoking Status: Unknown if ever smoked - Medications Home Medications: Home Medications Medication Instructions Recorded Confirmed Last Taken Type Sevelamer Carbonate [Renvela] 2.4 gm PO TIDWM 02/07/19 04/02/19 Unknown History ALBUTEROL NEB's [Proventil 0.083% 2.5 mg IH Q4HRT PRN nebu 02/16/19 04/02/19 Unknown Rx NEBS] Acetaminophen [Acetaminophen TAB] 650 mg PO Q4H PRN tablet 02/16/19 04/02/19 Unknown Rx Calcitriol [Rocaltrol] 0.5 mcg PO BID capsule 02/16/19 04/02/19 Unknown Rx Cholecalciferol Vit D3 [Vitamin D3 2,000 unit PO BID tablet 02/16/19 04/02/19 Unknown Rx 1,000 UNIT TAB] Gabapentin [Neurontin] 300 mg PO BID capsule 02/16/19 04/02/19 Unknown Rx Hydroxychloroquine [Plaquenil] 200 mg PO QDAY tablet 02/16/19 04/02/19 Unknown Rx Metoprolol [Lopressor TAB] 25 mg PO BID tablet 02/16/19 04/02/19 Unknown Rx NIFEdipine XL [Procardia Xl] 60 mg PO QDAY tablet 02/16/19 04/02/19 Unknown Rx Ondansetron [Zofran ODT TAB] 8 mg PO Q8H PRN tab.rapdis 02/16/19 04/02/19 Unknown Rx Sevelamer Carbonate [Renvela] 2,400 mg PO AC tablet 02/16/19 04/02/19 Unknown Rx Torsemide [Demadex] 100 mg PO BID tablet 02/16/19 04/02/19 Unknown Rx hydrALAZINE [Apresoline TAB] 50 mg PO Q8HR tablet 02/16/19 04/02/19 Unknown Rx oxyCODONE [roxiCODONE] 10 mg PO Q6H PRN tablet 02/16/19 04/02/19 Unknown Rx ED Physical Exam - General Limitations: No Limitations General appearance: alert, in no apparent distress - Head Head exam: Present: atraumatic, normocephalic, normal inspection - Eye Eye exam: Present: normal appearance, PERRL - ENT ENT exam: Present: normal exam, normal orophraynx, mucous membranes moist - Neck Neck exam: Present: normal inspection, full ROM. Absent: tenderness, meningismus, lymphadenopathy, thyromegaly - Respiratory Respiratory exam: Present: rales, decreased breath sounds. Absent: respiratory distress, stridor, accessory muscle use, prolonged expiratory - Cardiovascular Cardiovascular Exam: Present: regular rate, systolic murmur - GI/Abdominal GI/Abdominal exam: Present: soft, normal bowel sounds. Absent: distended, tenderness, guarding, rebound, rigid, organomegaly, mass, bruit, hernia - Extremities Exam Extremities exam: Present: normal inspection, full ROM, normal capillary refill. Absent: pedal edema, calf tenderness - Back Exam Back exam: Absent: CVA tenderness (R), CVA tenderness (L) - Neurological Exam Neurological exam: Present: alert, oriented X3, CN II-XII intact - Skin Skin exam: Present: warm, intact, normal color ED Course Vital Signs 04/02/19 04/02/19 04/02/19 15:55 16:04 16:55 Temperature 98.2 F Pulse Rate 99 H 90 Respiratory 20 18 18 Rate Blood Pressure 140/66 141/75 [Left] O2 Sat by Pulse 97 97 Oximetry 04/02/19 04/02/19 17:27 21:32 Temperature Pulse Rate 91 H 85 Respiratory 18 16 Rate Blood Pressure 144/79 161/88 [Left] O2 Sat by Pulse 99 98 Oximetry - Consultations Consultation #1: 04/02/19 21:38 I discussed the patient is Dr. Velasquez, he advised that there is no reprographics technician for the whole weekend the patient be best served at [facility] and he advised to transfer patient to [facility] for further workup. Consultation #2: 04/02/19 21:57 I discussed the patient is Dr. Bhandari, cardiothoracic at [facility] he is pollution control chemist for Dr. Miranda. Dr. Bhandari accepted the patient to be transferred to [facility] ICU. ED Medical Decision Making - Lab Data Result diagrams: 04/02/19 16:58 04/02/19 16:58 - EKG Data -: EKG Interpreted by Ga EKG shows normal: sinus rhythm Rate: normal - EKG Data Interpretation: no acute changes - Radiology Data Radiology results: report reviewed Chest x-ray showed bilateral lower lobe airspace disease with possible pleural effusion. - Medical Decision Making Patient is 53 years old male with history of end-stage renal disease on home hemodialysis. Patient also had a recent mitral valve replacement at [facility] on 03/01/2019. Patient stated that he was doing his dialysis today and all of a sudden his vital signs oral drop with oxygen saturation of 78%. Patient started on 2 L nasal cannula and his oxygen saturation went up to 99%. Patient denied any chest pain but stated that he has been having significant shortness of breath since he left the hospital. He said he called his cardiothoracic surgeon and they told him to follow up as an outpatient. Patient stated that there is no difference in his symptoms before and after the surgery. Patient is asking for home oxygen. Patient denied any fever or chills. Patient EKG did not show any ST elevation or depression. Chest x-ray showed bilateral airspace disease with pleural effusion. Patient d-dimer came back high, I order a VQ scan but patient refused after he was taken to the nuclear medicine suite because he does not want to lay flat. Patient received Levaquin for also a bilateral pneumonia. I discussed the patient is Dr. Bhandari from [facility], he agreed to transfer the patient to [facility] down ICU. Patient accepted by Dr. Disla to be admitted to ICU. Critical Care Time: Yes Critical care time in (mins) excluding proc time.: 45 Critical care attestation.: If time is entered above; I have spent that time in minutes in the direct care of this critically ill patient, excluding procedure time. ED Disposition Clinical Impression: ESRD (end stage renal disease) on dialysis, Shortness of breath, Pneumonia of both lower lobes Disposition: DC/TX-70 ANOTHER TYPE HLTHCARE Is pt being admited?: Yes Condition: Stable Instructions: Bacterial Pneumonia (ED) Referrals: MANUEL DUMONT MD [Primary Care Provider] - 3-5 Days
[2019-04-02 17:13] LABS: Basophils # (Auto) 0.1 K/mm3 (0.0-0.1); Basophils % (Auto) 0.8 % (0.0-1.8); Eosinophils # (Auto) 0.3 K/mm3 (0.0-0.4); Eosinophils % (Auto) 4.1 % (0.0-4.3); Hematocrit 24.2 % (35.5-45.6); Hemoglobin 8.3 gm/dl (11.8-15.2); Lymphocytes # (Auto) 0.7 K/mm3 (1.2-5.4); Lymphocytes % (Auto) 9.6 % (13.4-35.0); Mean Corpuscular HGB Conc 34 % (32-34); Mean Corpuscular Volume 91 fl (84-94); Monocytes # (Auto) 0.6 K/mm3 (0.0-0.8); Monocytes % (Auto) 8.8 % (0.0-7.3); Platelet Count 158 K/mm3 (140-440); Red Blood Count 2.67 M/mm3 (3.65-5.03); Red Cell Distribution Width 17.3 % (13.2-15.2)
[2019-04-02 17:20] LABS: INR 1.1 (0.87-1.13)
[2019-04-02 17:21] LABS: Partial Thromboplastin Time 36.8 Sec. (24.2-36.6)
[2019-04-02 17:29] LABS: Calcium 10.2 mg/dL (8.4-10.2)
--- NOTE | 2019-04-02 17:48 | XRay Report ---
PROCEDURE: XR CHEST 1V AP TECHNIQUE: Chest radiograph single view. HISTORY: Dyspnea COMPARISONS: Chest x-ray February 14, 2019 . FINDINGS: Trachea midline. Cardiomegaly stable. Prosthetic valve noted. Bibasilar airspace disease right greater than left. Left base findings are somewhat increased. No pneumothorax Status post sternotomy IMPRESSION: Bibasilar airspace disease and effusion with some interval worsening on the left.. This document is electronically signed by Blair Malhotra MD., April 02 2019 06:47:12 PM ET
[2019-04-02 18:17] LABS: Chol/HDL Ratio 1.89 %
[2019-04-02] MEDS ORDERED: BABY ASPIRIN PO ONE (18:59)
[2019-04-02] MEDS ORDERED: LEVAQUIN 500MG/100ML 500 MG/100 ML BAG IV ONE (20:39)
--- NOTE | 2019-04-02 21:02 | History and Physical Report ---
History of Present Illness History of present illness: 53 YO Male with ESRD on Home Hemodialysis QOD with last dialysis session conducted on the day prior to admission, RCC S/P Left Nephrectomy, HTN, Obesity presents to ED for evaluation. Pt states that he has experienced shortness of breath over the past 1 day with worsening symptoms over the past 6 hours. Pt also reports of chest pain, but uopn further questioning the patient located and area in the epigastric region as the source of his pain. EMS notified, and upon arrival the patient was found to be in distress. Pt transported to [facility] ED. Pt seen and evaluated in ED and found to have ESRD, Acute Hypoxemic Respiratory Failure, as well as RLL Pneumonia. Pt admitted to medical floor, and initiated on Pneumonia protocol. Nephrology consulted in ED. Pt denies fever, chills, CP, Palpitations, NVD, Trauma, BRBPR, Unintentional weight loss, Night sweat, productive, or recent ill contacts. Prior admission on 02/06/19 reviewed. All listed medication reconciled at time of admission. Pt admitted to medical floor. Past History Past Medical History: ESRD, hypertension Past Surgical History: total knee replacement, tonsillectomy, Other (Left Nephrectomy) Social history: , lives with family. denies: smoking, alcohol abuse, prescription drug abuse Family history: diabetes, hypertension - History of Present Illness Initial Comments: Patient is 53 years old male with history of end-stage renal disease on home hemodialysis. Patient also had a recent mitral valve replacement at [facility] on 03/01/2019. Patient stated that he was doing his dialysis today and all of a sudden his vital signs oral drop with oxygen saturation of 78%. Patient started on 2 L nasal cannula and his oxygen saturation went up to 99%. Patient denied any chest pain but stated that he has been having significant shortness of breath since he left the hospital. He said he called his cardiothoracic surgeon and they told him to follow up as an outpatient. Patient stated that there is no difference in his symptoms before and after the surgery. Patient is asking for home oxygen. Patient denied any fever or chills. MD Complaint: shortness of breath - Related Data Home Medications Medication Instructions Recorded Confirmed Last Taken Sevelamer Carbonate [Renvela] 2.4 gm PO TIDWM 02/07/19 04/02/19 Unknown Previous Rx's Medication Instructions Recorded Last Taken Type ALBUTEROL NEB's [Proventil 0.083% 2.5 mg IH Q4HRT PRN nebu 02/16/19 Unknown Rx NEBS] Acetaminophen [Acetaminophen TAB] 650 mg PO Q4H PRN tablet 02/16/19 Unknown Rx Calcitriol [Rocaltrol] 0.5 mcg PO BID capsule 02/16/19 Unknown Rx Cholecalciferol Vit D3 [Vitamin D3 2,000 unit PO BID tablet 02/16/19 Unknown Rx 1,000 UNIT TAB] Gabapentin [Neurontin] 300 mg PO BID capsule 02/16/19 Unknown Rx Hydroxychloroquine [Plaquenil] 200 mg PO QDAY tablet 02/16/19 Unknown Rx Metoprolol [Lopressor TAB] 25 mg PO BID tablet 02/16/19 Unknown Rx NIFEdipine XL [Procardia Xl] 60 mg PO QDAY tablet 02/16/19 Unknown Rx Ondansetron [Zofran ODT TAB] 8 mg PO Q8H PRN tab.rapdis 02/16/19 Unknown Rx Sevelamer Carbonate [Renvela] 2,400 mg PO AC tablet 02/16/19 Unknown Rx Torsemide [Demadex] 100 mg PO BID tablet 02/16/19 Unknown Rx hydrALAZINE [Apresoline TAB] 50 mg PO Q8HR tablet 02/16/19 Unknown Rx oxyCODONE [roxiCODONE] 10 mg PO Q6H PRN tablet 02/16/19 Unknown Rx Allergies Allergy/AdvReac Type Severity Reaction Status Date / Time lisinopril Allergy Unknown Verified 02/06/19 20:59 metformin [From Glucophage] Allergy Diarrhea Verified 02/06/19 20:59 ED Review of Systems ROS: Stated complaint: JERALD Other details as noted in HPI Comment: All other systems reviewed and negative Constitutional: denies: chills, fever Respiratory: orthopnea, shortness of breath, SOB with exertion, SOB at rest. denies: cough, wheezing Cardiovascular: denies: chest pain, palpitations Gastrointestinal: denies: abdominal pain, nausea, vomiting, diarrhea, constipation, hematemesis, melena, hematochezia Neurological: denies: headache ED Past Medical Hx - Past Medical History Previous Medical History?: Yes Hx Congestive Heart Failure: No Hx Diabetes: No Hx Renal Disease: Yes (ESRD. Home hemodialysis) Hx of Cancer: Yes (renal cancer (removed 2018)) Hx Asthma: Yes (As a Child) Hx COPD: No Additional medical history: Renal Cancer (2019 removed) - Surgical History Past Surgical History?: Yes Additional Surgical History: kidney, tonsillectomy, left rotator cuff,knee. mitral valve replaced 03/01/19 @ [place] - Social History Smoking Status: Unknown if ever smoked - Medications Home Medications: Medications and Allergies Allergies Allergy/AdvReac Type Severity Reaction Status Date / Time lisinopril Allergy Unknown Verified 02/06/19 20:59 metformin [From Glucophage] Allergy Diarrhea Verified 02/06/19 20:59 Home Medications Medication Instructions Recorded Confirmed Last Taken Type Sevelamer Carbonate [Renvela] 2.4 gm PO TIDWM 02/07/19 04/02/19 Unknown History ALBUTEROL NEB's [Proventil 0.083% 2.5 mg IH Q4HRT PRN nebu 02/16/19 04/02/19 Unknown Rx NEBS] Acetaminophen [Acetaminophen TAB] 650 mg PO Q4H PRN tablet 02/16/19 04/02/19 Unknown Rx Calcitriol [Rocaltrol] 0.5 mcg PO BID capsule 02/16/19 04/02/19 Unknown Rx Cholecalciferol Vit D3 [Vitamin D3 2,000 unit PO BID tablet 02/16/19 04/02/19 Unknown Rx 1,000 UNIT TAB] Gabapentin [Neurontin] 300 mg PO BID capsule 02/16/19 04/02/19 Unknown Rx Hydroxychloroquine [Plaquenil] 200 mg PO QDAY tablet 02/16/19 04/02/19 Unknown Rx Metoprolol [Lopressor TAB] 25 mg PO BID tablet 02/16/19 04/02/19 Unknown Rx NIFEdipine XL [Procardia Xl] 60 mg PO QDAY tablet 02/16/19 04/02/19 Unknown Rx Ondansetron [Zofran ODT TAB] 8 mg PO Q8H PRN tab.rapdis 02/16/19 04/02/19 Unknown Rx Sevelamer Carbonate [Renvela] 2,400 mg PO AC tablet 02/16/19 04/02/19 Unknown Rx Torsemide [Demadex] 100 mg PO BID tablet 02/16/19 04/02/19 Unknown Rx hydrALAZINE [Apresoline TAB] 50 mg PO Q8HR tablet 02/16/19 04/02/19 Unknown Rx oxyCODONE [roxiCODONE] 10 mg PO Q6H PRN tablet 02/16/19 04/02/19 Unknown Rx Active Meds: Active Medications Levofloxacin/Dextrose (Levaquin 500mg/100ml) 500 mg in 100 mls @ 100 mls/hr IV ONCE ONE Stop: 04/02/19 21:38 Last Admin: 04/02/19 20:56 Dose: 100 mls/hr Documented by: Exam - Constitutional Vitals: Temp Pulse Resp BP Pulse Ox 98.2 F 91 H 18 144/79 99 04/02/19 15:55 04/02/19 17:27 04/02/19 17:27 04/02/19 17:27 04/02/19 17:27 Results - Labs CBC & Chem 7: 04/02/19 16:58 04/02/19 16:58 Labs: Abnormal lab results 04/02/19 04/02/19 04/02/19 Range/Units 16:58 16:58 16:58 RBC 2.67 L (3.65-5.03) M/mm3 Hgb 8.3 L (11.8-15.2) gm/dl Hct 24.2 L (35.5-45.6) % RDW 17.3 H (13.2-15.2) % Lymph % (Auto) 9.6 L (13.4-35.0) % [place] % (Auto) 8.8 H (0.0-7.3) % Lymph # 0.7 L (1.2-5.4) K/mm3 Seg Neutrophils % 76.7 H (40.0-70.0) % APTT 36.8 H (24.2-36.6) Sec. D-Dimer 5030.03 H (0-234) ng/mlDDU Sodium 136 L (137-145) mmol/L Chloride 90.4 L (98-107) mmol/L BUN 72 H (9-20) mg/dL Creatinine 8.8 H (0.8-1.5) mg/dL Glucose 112 H (75-100) mg/dL Troponin T (0.00-0.029) ng/mL LDL Cholesterol Direct (50-130) mg/dL HDL Cholesterol (40-59) mg/dL 04/02/19 04/02/19 Range/Units 16:58 18:57 RBC (3.65-5.03) M/mm3 Hgb (11.8-15.2) gm/dl Hct (35.5-45.6) % RDW (13.2-15.2) % Lymph % (Auto) (13.4-35.0) % [place] % (Auto) (0.0-7.3) % Lymph # (1.2-5.4) K/mm3 Seg Neutrophils % (40.0-70.0) % APTT (24.2-36.6) Sec. D-Dimer (0-234) ng/mlDDU Sodium (137-145) mmol/L Chloride (98-107) mmol/L BUN (9-20) mg/dL Creatinine (0.8-1.5) mg/dL Glucose (75-100) mg/dL Troponin T 0.766 H* 0.786 H* (0.00-0.029) ng/mL LDL Cholesterol Direct 46 L (50-130) mg/dL HDL Cholesterol 77 H (40-59) mg/dL
[2019-04-02] MEDS ORDERED: MORPHINE IV ONE (21:51)
[2019-04-02 23:08] VITALS: BP 155/80
--- NOTE | 2019-04-02 23:39 | Event Note ---
Date: 04/02/19 53 YO Male with ESRD on HD, MVR presents to ED for evaluation. Pt seen and evaluated in ED and found to have Acute Hypoxemic Respiratory Failure and treated with supplemental oxygen. Pt found to have new systolic cardiac murmur. Pt deemed to be high risk for valvular failure. Recommend transfer to [place] for cardiothoracic surgery evaluation and treatment. - General Limitations: No Limitations General appearance: alert, in no apparent distress - Head Head exam: Present: atraumatic, normocephalic, normal inspection - Eye Eye exam: Present: normal appearance, PERRL - ENT ENT exam: Present: normal exam, normal orophraynx, mucous membranes moist - Neck Neck exam: Present: normal inspection, full ROM. Absent: tenderness, meningismus, lymphadenopathy, thyromegaly - Respiratory Respiratory exam: Present: rales, decreased breath sounds. Absent: respiratory distress, stridor, accessory muscle use, prolonged expiratory - Cardiovascular Cardiovascular Exam: Present: regular rate, systolic murmur - GI/Abdominal GI/Abdominal exam: Present: soft, normal bowel sounds. Absent: distended, tenderness, guarding, rebound, rigid, organomegaly, mass, bruit, hernia - Extremities Exam Extremities exam: Present: normal inspection, full ROM, normal capillary refill. Absent: pedal edema, calf tenderness - Back Exam Back exam: Absent: CVA tenderness (R), CVA tenderness (L) - Neurological Exam Neurological exam: Present: alert, oriented X3, CN II-XII intact - Skin Skin exam: Present: warm, intact, normal color
== END 2019-04-03 00:16 | disposition other institution (70) ==
LOC: ED 15:18
DX: J18.1 Lobar pneumonia, unspecified organism (principal); N18.6 End stage renal disease; J45.909 Unspecified asthma, uncomplicated; Z99.2 Dependence on renal dialysis; Z88.5 Allergy status to narcotic agent; Z90.89 Acquired absence of other organs
CPT/HCPCS: 36415; 71045; 80048; 80061; 84484; 85025; 85379; 85610; 85730; 93005; 93010; 96365; 96375; 99291; J1956; J2270

== ENCOUNTER 2019-04-18 18:05 | Emergency (ER) | payer OTHER ==
--- NOTE | 2019-04-18 18:57 | Emergency Department Report ---
HPI - General Chief Complaint: Dyspnea/Respdistress Time Seen by Provider: 04/18/19 18:37 - HPI HPI: 53-year-old -[place] male presents to the emergency department with complaint of low hemoglobin, sent in by his loom repairer Dr. Perez. The patient has a past medical history of renal cancer with left-sided nephrectomy, end- stage renal disease on hemodialysis every other day, recent mitral valve replacement, asthma. The patient was doing a routine follow-up with Dr. Perez last and had some blood drawn. He was called today and told that the hemoglobin was 6.5 and that he needed to present to the emergency department/hospital for a blood transfusion. The patient's only complaint is that he feels very fatigued. He denies any headache, chest pain, shortness of breath or any focal weakness. ED Past Medical Hx - Past Medical History Previous Medical History?: Yes Hx Congestive Heart Failure: No Hx Diabetes: No Hx Renal Disease: Yes (ESRD. Home hemodialysis) Hx Asthma: Yes (As a Child) Hx COPD: No Additional medical history: Renal Cancer (2019 removed) - Surgical History Past Surgical History?: Yes Additional Surgical History: kidney, tonsillectomy, left rotator cuff,knee. mitral valve replaced 03/01/19 @ [place] - Social History Smoking Status: Never Smoker - Medications Home Medications: Home Medications Medication Instructions Recorded Confirmed Last Taken Type Sevelamer Carbonate [Renvela] 2.4 gm PO TIDWM 02/07/19 04/02/19 Unknown History ALBUTEROL NEB's [Proventil 0.083% 2.5 mg IH Q4HRT PRN nebu 02/16/19 04/02/19 Unknown Rx NEBS] Acetaminophen [Acetaminophen TAB] 650 mg PO Q4H PRN tablet 02/16/19 04/02/19 Unknown Rx Calcitriol [Rocaltrol] 0.5 mcg PO BID capsule 02/16/19 04/02/19 Unknown Rx Cholecalciferol Vit D3 [Vitamin D3 2,000 unit PO BID tablet 02/16/19 04/02/19 Unknown Rx 1,000 UNIT TAB] Gabapentin [Neurontin] 300 mg PO BID capsule 02/16/19 04/02/19 Unknown Rx Hydroxychloroquine [Plaquenil] 200 mg PO QDAY tablet 02/16/19 04/02/19 Unknown Rx Metoprolol [Lopressor TAB] 25 mg PO BID tablet 02/16/19 04/02/19 Unknown Rx NIFEdipine XL [Procardia Xl] 60 mg PO QDAY tablet 02/16/19 04/02/19 Unknown Rx Ondansetron [Zofran ODT TAB] 8 mg PO Q8H PRN tab.rapdis 02/16/19 04/02/19 Unknown Rx Sevelamer Carbonate [Renvela] 2,400 mg PO AC tablet 02/16/19 04/02/19 Unknown Rx Torsemide [Demadex] 100 mg PO BID tablet 02/16/19 04/02/19 Unknown Rx hydrALAZINE [Apresoline TAB] 50 mg PO Q8HR tablet 02/16/19 04/02/19 Unknown Rx oxyCODONE [roxiCODONE] 10 mg PO Q6H PRN tablet 02/16/19 04/02/19 Unknown Rx ED Review of Systems ROS: Stated complaint: LOW BLOOD Other details as noted in HPI Comment: All other systems reviewed and negative Constitutional: other (fatigue). denies: chills, fever Eyes: denies: eye pain, vision change ENT: denies: ear pain, throat pain Respiratory: denies: cough, shortness of breath Cardiovascular: denies: chest pain, palpitations Gastrointestinal: denies: abdominal pain, vomiting Genitourinary: denies: dysuria, frequency Musculoskeletal: denies: back pain, arthralgia Skin: denies: rash, lesions Neurological: denies: headache, weakness Physical Exam - Physical Exam Vital Signs: Vital Signs 04/18/19 04/18/19 04/18/19 18:26 18:27 18:33 Temperature 97.9 F Pulse Rate 99 H Respiratory 20 20 Rate Blood Pressure 163/76 170/85 O2 Sat by Pulse 100 Oximetry Physical Exam: GENERAL: The patient is well-developed well-nourished. HENT: Normocephalic. Atraumatic. Patient has moist mucous membranes. Oropharynx is clear. EYES: Extraocular motions are intact. Patient has some pale conjunctiva. NECK: Supple. Trachea is midline. CHEST/LUNGS: Coarse breath sounds throughout the chest. No tachypnea or accessory muscle use. There is no respiratory distress noted. HEART/CARDIOVASCULAR: Regular. There is no tachycardia. There is no murmur. ABDOMEN: Abdomen is soft, nontender. Patient has normal bowel sounds. SKIN: Skin is warm and dry. NEURO: The patient is awake, alert, and oriented. The patient is cooperative. The patient has no focal neurologic deficits. The patient has normal speech. MUSCULOSKELETAL: There is no tenderness or deformity. There is no evidence of acute injury. ED Course Vital Signs 04/18/19 04/18/19 04/18/19 18:26 18:27 18:33 Temperature 97.9 F Pulse Rate 99 H Respiratory 20 20 Rate Blood Pressure 163/76 170/85 O2 Sat by Pulse 100 Oximetry ED Medical Decision Making - Lab Data Result diagrams: 04/18/19 20:12 04/18/19 20:12 - EKG Data -: EKG Interpreted by Me EKG shows normal: sinus rhythm, axis, intervals, QRS complexes, ST-T waves Rate: normal - EKG Data When compared to previous EKG there are: no significant change Interpretation: normal EKG, unchanged when compared t (04/06/19) - Medical Decision Making This patient presents to the emergency department after he was sent in secondary to some low hemoglobin that was found late last week at the nephrologists office. It was rechecked here today and was low at 6.8. She has some pale conjunctiva and the complaint of some generalized fatigue. He does not have any signs of any focal, motor or sensory deficits and his cranial nerves are intact. One unit of packed red blood cells was ordered for transfusion. The patient was getting a transfusion, he started complaining of some intermittent chest pains. They seem to be related to the speed at which she was receiving the transfusion and when it was slowed down, his symptoms stopped. The patient says that these are chronic pains that he has that occur when his "oxygen gets low." The patient's metabolic panel shows some hyperkalemia with potassium of 5.9. He was given a dose of Kayexalate. With the low hemoglobin, hyperkalemia, and intermittent chest pains, I recommended to the patient that he should be admitted to the hospital for further evaluation and monitoring. However the patient says that he has been admitted to the hospital for just about each week since November and does not want to be admitted. We had a long conversation regarding his presentation, and lab results and the reasons why he needs admission. He understands that if he does not get admitted that he may have continued anemia, fatigue, weakness, increased chest pains, shortness of breath, ND, disability, or even . The patient is awake, alert and has a normal decision-making capacity and despite understanding the risks of leaving, he is still signing out AGAINST MEDICAL ADVICE. He understands that he can return to the emergency department at any time if he changes his mind about admission, further evaluation, or with any acute distress. Otherwise, the patient has been instructed to follow up with his primary care physician, loom repairer and shampoo person. - Differential Diagnosis symptomatic anemia, pneumonia, CHF, ND Critical Care Time: No Critical care attestation.: If time is entered above; I have spent that time in minutes in the direct care of this critically ill patient, excluding procedure time. ED Disposition Clinical Impression: ESRD (end stage renal disease) on dialysis, Hyperkalemia, Intermittent chest pain Hypertension Qualifiers: Hypertension type: essential hypertension Qualified Code(s): I10 - Essential (primary) hypertension Disposition: LEFT AGAINST MED ADVICE Is pt being admited?: No Condition: Fair Instructions: Hypertension (ED) Additional Instructions: Please return to the emergency department immediately if you change your mind ab out admission, further evaluation, with any acute distress. If not, please make sure to follow up with your primary care physician, loom repairer, and shampoo person as soon as possible. Referrals: YASSINE PEREZ MD [Staff Physician] - [facility] Forms: AMA Form Time of Disposition: 03:05
[2019-04-18 21:02] LABS: Basophils # (Auto) 0.1 K/mm3 (0.0-0.1); Basophils % (Auto) 0.8 % (0.0-1.8); Eosinophils # (Auto) 0.3 K/mm3 (0.0-0.4); Eosinophils % (Auto) 3.8 % (0.0-4.3); Hematocrit 20.4 % (35.5-45.6); Hemoglobin 6.8 gm/dl (11.8-15.2); Lymphocytes # (Auto) 0.7 K/mm3 (1.2-5.4); Lymphocytes % (Auto) 8.9 % (13.4-35.0); Mean Corpuscular HGB Conc 33 % (32-34); Mean Corpuscular Volume 94 fl (84-94); Monocytes # (Auto) 0.5 K/mm3 (0.0-0.8); Monocytes % (Auto) 7.1 % (0.0-7.3); Platelet Count 188 K/mm3 (140-440); Red Blood Count 2.16 M/mm3 (3.65-5.03); Red Cell Distribution Width 19.5 % (13.2-15.2)
[2019-04-18] MEDS ORDERED: NACL 0.9% 500 ML 500 ML IV ONE (21:12)
[2019-04-18 21:24] LABS: Calcium 10.1 mg/dL (8.4-10.2)
[2019-04-18] MEDS ORDERED: KIONEX PO ONE (23:46)
[2019-04-19] MEDS ORDERED: MORPHINE IV ONE ×2 (00:45→01:08)
[2019-04-19] MEDS ORDERED: NORMODYNE IV ONE (01:11)
[2019-04-19] MEDS ORDERED: APRESOLINE IV ONE (01:45)
[2019-04-19 02:44] VITALS: BP 158/80
== END 2019-04-19 02:13 | disposition left against medical advice (07) ==
LOC: ED 18:05
DX: D64.9 Anemia, unspecified (principal); E87.5 Hyperkalemia; R07.89 Other chest pain; I12.0 Hypertensive chronic kidney disease with stage 5 chronic kidney disease or end stage renal disease; N18.6 End stage renal disease; J45.909 Unspecified asthma, uncomplicated; Z99.2 Dependence on renal dialysis; Z90.89 Acquired absence of other organs; Z98.890 Other specified postprocedural states; Z88.8 Allergy status to other drugs, medicaments and biological substances
CPT/HCPCS: 36415; 36430; 80048; 85025; 86850; 86900; 86901; 86920; 93005; 93010; 96374; 96375; 99284; J2270; J7040; P9016; 96361

== ENCOUNTER 2019-04-24 16:09 | Emergency (ER) | payer OTHER ==
--- NOTE | 2019-04-24 16:39 | Emergency Department Report ---
ED Neuro Deficit HPI - General Stated Complaint: POSSIBLE STROKE Time Seen by Provider: 04/24/19 16:11 - History of Present Illness Initial Comments: [facility] Date of service: 04/24/2019 Impression: 53 year old male with a history of ESRD on HD every other day who presents to the hospital with right side weakness. Not a tpa candidate due to: Discussed option for TPA however patient refused. Does not meet LVO screening criteria (no aphasia, neglect, gaze deviation, dense hemiparesis, or visual field deficits on exam), therefore advanced imaging is not indicated. Comments: Door Time: 16:09 [facility] contacted: 15:53 [facility] at bedside: 15:53 NIHSS assessment start time (time the consultation begins): 16:45 Last known well time (LKW): 15:00 Recommendations: Start antiplatelet if no obvious contraindication Stroke protocol admission/ orderset suggested with placement on stroke floor tele monitoring Bedside swallow evaluation HOB less than 30 degrees IV Fluid hydration with NS Euglycemia avoid hyperthermia, PRN acetaminophen dvt ppx Consider inpatient neurology consultation Discussed with ED MD Please call with questions --------- CC: Stroke alert History of Present Illness Patient is a 53 year old male who presented to the ED with right side weakness. Patient was last normal around 3pm and then while driving he developed weakness on the right arm and leg. While in the ED his symptoms improved and TPA was discussed with the patient but he refused. He does report a history of spinal cord injury when he was younger but denied any history of intracranial hemorrhage. Diagnostic: CT Brain w/o contrast: no acute hemorrhage or large territory infarct Exam: Mental Status: Awake, alert, oriented Naming: Intact Repetition: Intact Speech: fluent Cranial Nerves: Pupils: Equal round and reactive to light Extraocular movements: Intact in all cardinal gaze Ptosis: Absent Visual pozo: Intact to finger counting Facial sensation: Intact to pin and light touch Facial movements: Intact and symmetric Motor Exam: right leg drift Tremor/Abnormal Movements: Resting tremor: Absent Intention tremor: Absent Postural tremor: Absent Sensory Exam: Light touch: decreased on right leg Coordination: Finger to nose: Intact Heel to loomis: Intact NIHSS score: 2 Medical Decision Making: - Extensive number of diagnosis or management options are considered above. - Extensive amount of complex data reviewed. - High risk of complication and/or morbidity or mortality are associated with differential diagnostic considerations above. - There may be Uncertain outcome and increased probability of prolonged functional impairment or high probability of severe prolonged functional impairment associated with some of these differential diagnosis. Medical Data Reviewed: 1.Data reviewed include clinical labs, radiology,Medical Tests; 2.Tests results discussed w/performing or interpreting physician; 3.Obtaining/reviewing old medical records; 4.Obtaining case history from another source; 5.Independent review of image, tracing or specimen. Patient was informed the Neurology Consult would happen via TeleHealth consult by way of interactive audio and video telecommunications and consented to receiving care in this manner. - Related Data Home Medications: Home Medications Medication Instructions Recorded Confirmed Last Taken Sevelamer Carbonate [Renvela] 2.4 gm PO TIDWM 02/07/19 04/02/19 Unknown Previous Rx's Medication Instructions Recorded Last Taken Type ALBUTEROL NEB's [Proventil 0.083% 2.5 mg IH Q4HRT PRN nebu 02/16/19 Unknown Rx NEBS] Acetaminophen [Acetaminophen TAB] 650 mg PO Q4H PRN tablet 02/16/19 Unknown Rx Calcitriol [Rocaltrol] 0.5 mcg PO BID capsule 02/16/19 Unknown Rx Cholecalciferol Vit D3 [Vitamin D3 2,000 unit PO BID tablet 02/16/19 Unknown Rx 1,000 UNIT TAB] Gabapentin [Neurontin] 300 mg PO BID capsule 02/16/19 Unknown Rx Hydroxychloroquine [Plaquenil] 200 mg PO QDAY tablet 02/16/19 Unknown Rx Metoprolol [Lopressor TAB] 25 mg PO BID tablet 02/16/19 Unknown Rx NIFEdipine XL [Procardia Xl] 60 mg PO QDAY tablet 02/16/19 Unknown Rx Ondansetron [Zofran ODT TAB] 8 mg PO Q8H PRN tab.rapdis 02/16/19 Unknown Rx Sevelamer Carbonate [Renvela] 2,400 mg PO AC tablet 02/16/19 Unknown Rx Torsemide [Demadex] 100 mg PO BID tablet 02/16/19 Unknown Rx hydrALAZINE [Apresoline TAB] 50 mg PO Q8HR tablet 02/16/19 Unknown Rx oxyCODONE [roxiCODONE] 10 mg PO Q6H PRN tablet 02/16/19 Unknown Rx Allergies/Adverse Reactions: Allergies Allergy/AdvReac Type Severity Reaction Status Date / Time lisinopril Allergy Unknown Verified 02/06/19 20:59 metformin [From Glucophage] Allergy Diarrhea Verified 02/06/19 20:59 ED Review of Systems ROS: Stated complaint: POSSIBLE STROKE Other details as noted in HPI ED Past Medical Hx - Past Medical History Hx Congestive Heart Failure: No Hx Diabetes: No Hx Renal Disease: Yes (ESRD. Home hemodialysis) Hx Asthma: Yes (As a Child) Hx COPD: No Additional medical history: Renal Cancer (2019 removed) - Surgical History Additional Surgical History: kidney, tonsillectomy, left rotator cuff,knee. mitral valve replaced 03/01/19 @ [place] - Social History Smoking Status: Never Smoker - Medications Home Medications: Home Medications Medication Instructions Recorded Confirmed Last Taken Type Sevelamer Carbonate [Renvela] 2.4 gm PO TIDWM 02/07/19 04/02/19 Unknown History ALBUTEROL NEB's [Proventil 0.083% 2.5 mg IH Q4HRT PRN nebu 02/16/19 04/02/19 Unknown Rx NEBS] Acetaminophen [Acetaminophen TAB] 650 mg PO Q4H PRN tablet 02/16/19 04/02/19 Unknown Rx Calcitriol [Rocaltrol] 0.5 mcg PO BID capsule 02/16/19 04/02/19 Unknown Rx Cholecalciferol Vit D3 [Vitamin D3 2,000 unit PO BID tablet 02/16/19 04/02/19 Unknown Rx 1,000 UNIT TAB] Gabapentin [Neurontin] 300 mg PO BID capsule 02/16/19 04/02/19 Unknown Rx Hydroxychloroquine [Plaquenil] 200 mg PO QDAY tablet 02/16/19 04/02/19 Unknown Rx Metoprolol [Lopressor TAB] 25 mg PO BID tablet 02/16/19 04/02/19 Unknown Rx NIFEdipine XL [Procardia Xl] 60 mg PO QDAY tablet 02/16/19 04/02/19 Unknown Rx Ondansetron [Zofran ODT TAB] 8 mg PO Q8H PRN tab.rapdis 02/16/19 04/02/19 Unknown Rx Sevelamer Carbonate [Renvela] 2,400 mg PO AC tablet 02/16/19 04/02/19 Unknown Rx Torsemide [Demadex] 100 mg PO BID tablet 02/16/19 04/02/19 Unknown Rx hydrALAZINE [Apresoline TAB] 50 mg PO Q8HR tablet 02/16/19 04/02/19 Unknown Rx oxyCODONE [roxiCODONE] 10 mg PO Q6H PRN tablet 02/16/19 04/02/19 Unknown Rx ED Neuro Physical Exam - General Suspected Stroke: Yes - NIHSS Assessment Interval: Baseline 1a. Level of Consciousness: alert/keenly responsive 1b. LOC Questions: answers both correctly 1c. LOC Commands: performs tasks correctly 2. Best Gaze: normal 3. Visual: no visual loss 4. Facial Palsy: normal symmetrical movement 5b. Motor Arm Right: no drift 5a. Motor Arm Left: no drift 6a. Motor Leg Left: no drift 6b. Motor Leg Right: drift 7. Limb Ataxia: absent 8. Sensory: mild/moderate sensory loss 9. Best Language: no aphasia 10. Dysarthria: normal 11. Extinction/Inattention: no abnormality Total Score: 2 Stroke Severity: Minor Stroke - Psychiatric Psychiatric exam: Present: anxious Critical care attestation.: If time is entered above; I have spent that time in minutes in the direct care of this critically ill patient, excluding procedure time. ED Disposition Clinical Impression: Stroke Disposition: [id number] OP ADMIT IP TO THIS HOSP Is pt being admited?: Yes Condition: Stable Referrals: MANUEL DUMONT MD [Primary Care Provider] - 3-5 Days
--- NOTE | 2019-04-24 16:46 | Cat Scan Report ---
PROCEDURE: CT HEAD/BRAIN WO CON TECHNIQUE: Computerized tomography of the head was performed without contrast material. CT DOSE LENGTH PRODUCT: 920.5 mGycm HISTORY: neuro deficits <6hrs or sx present upon awakening COMPARISONS: None . FINDINGS: Skull and scalp: Normal . Paranasal sinuses: Normal . Ventricles and subarachnoid spaces: Normal . Cerebrum: No evidence of hemorrhage, acute infarction or mass . Cerebellum and brainstem: No evidence of hemorrhage, acute infarction or mass . IMPRESSION: Negative no acute abnormality identified This document is electronically signed by Brady Dominguez MD., April 24 2019 04:43:15 PM ET
[2019-04-24 16:56] LABS: Basophils # (Auto) 0.1 K/mm3 (0.0-0.1); Eosinophils # (Auto) 0.2 K/mm3 (0.0-0.4); Eosinophils % (Auto) 2.9 % (0.0-4.3); Hematocrit 20.7 % (35.5-45.6); Hemoglobin 6.8 gm/dl (11.8-15.2); Lymphocytes # (Auto) 0.5 K/mm3 (1.2-5.4); Lymphocytes % (Auto) 8.9 % (13.4-35.0); Mean Corpuscular HGB Conc 33 % (32-34); Mean Corpuscular Volume 93 fl (84-94); Monocytes # (Auto) 0.5 K/mm3 (0.0-0.8); Monocytes % (Auto) 8.6 % (0.0-7.3); Platelet Count 125 K/mm3 (140-440); Red Blood Count 2.23 M/mm3 (3.65-5.03); Red Cell Distribution Width 19.1 % (13.2-15.2)
[2019-04-24 17:17] LABS: Calcium 9.2 mg/dL (8.4-10.2)
[2019-04-24] MEDS ORDERED: NITROSTAT SL PRN (17:20)
[2019-04-24] MEDS ORDERED: PEPCID IV ONE (17:21)
[2019-04-24 17:25] LABS: INR 1.24 (0.87-1.13)
[2019-04-24 17:26] LABS: Partial Thromboplastin Time 35.3 Sec. (24.2-36.6); Thrombin Time 15.2 Sec. (15.1-19.6)
--- NOTE | 2019-04-24 17:34 | Emergency Department Report ---
ED General Adult HPI - General Chief complaint: Neuro Symptoms/Deficit Stated complaint: POSSIBLE STROKE Time Seen by Provider: 04/24/19 16:11 Source: patient, EMS (verbal report received from EMS.ems notes not available at time of chart dictation), RN notes reviewed, old records reviewed Mode of arrival: Stretcher Limitations: Physical Limitation - History of Present Illness Initial comments: Past medical history: End-stage renal disease on dialysis. Hypertension, anemia of chronic disease Primary care DrBryanna, patient can't remember. Nephrology: Dr. Jones This is a 53-year-old gentleman, not known to this provider previously, brought to the hospital by emergency medical services as a possible code stroke. Patient initially presents with complaint of right leg weakness, and right arm weakness. He reports that the symptoms started approximately 45 minutes prior to arrival. His right leg weakness and right arm weakness are painless, consta nt, did not radiate anywhere, and reportedly have no exacerbating or relieving factors. EMS indicates that the patient complained of left-sided chest pain. When I interview the patient, he denied left-sided chest pain. A code stroke is called overhead for right-sided weakness, and a stat noncontr ast CT scan of the brain is interpreted as negative for acute disease. Patient is seen in consultation with stroke neurology, Dr. Segal During this portion of his interview, he then endorses that he had nonspecific right-sided numbness, upon waking up this morning. He is not able to give an exact onset of symptoms. Furthermore, his right arm weakness resolved. Furthermore, his right lower extremity weakness appeared to resolve, with the exception of right proximal thigh weakness. He then began to complain of chest pain and shortness of breath. He is found to have bilateral crackles, jugular venous distention, and was hypoxic. He was unable to tolerate a CT angiogram of the head and neck, ordered to exclude a large vessel occlusion. He was started on BiPAP therapy. Lasix was ordered. The case was discussed with nephrology, Dr. Barreto, who indicated his group could arrange for dialysis tomorrow. While in the emergency room, the patient range of motion in the right arm and right leg improved dramatically. He then stated that he did not want to stay inside the hospital. The patient indicated that he is going to sign out AGAINST MEDICAL ADVICE. Extensive discussion had with the patient, while nurse Daya Tate was present as a witness The risks of leaving, including , disability, paralysis, loss of quality of life were all discussed with the patient. The patient is currently alert and oriented 3, clinically sober, and exhibits decision-making capacity. He is free from distracting injury. He is able to articulate the risks of leaving without medical stabilization or clearance in his own words. The patient was informed that he may return to the emergency room right away if and when he changes his mind. Patient verbalizes understanding. Nephrology is subsequently informed. -: hour(s), This morning Location: chest, right, upper extremity, lower extremity Quality: other Consistency: other Improves with: other Worsens with: other - Related Data Home Medications Medication Instructions Recorded Confirmed Last Taken Sevelamer Carbonate [Renvela] 2.4 gm PO TIDWM 02/07/19 04/02/19 Unknown Previous Rx's Medication Instructions Recorded Last Taken Type ALBUTEROL NEB's [Proventil 0.083% 2.5 mg IH Q4HRT PRN nebu 02/16/19 Unknown Rx NEBS] Acetaminophen [Acetaminophen TAB] 650 mg PO Q4H PRN tablet 02/16/19 Unknown Rx Calcitriol [Rocaltrol] 0.5 mcg PO BID capsule 02/16/19 Unknown Rx Cholecalciferol Vit D3 [Vitamin D3 2,000 unit PO BID tablet 02/16/19 Unknown Rx 1,000 UNIT TAB] Gabapentin [Neurontin] 300 mg PO BID capsule 02/16/19 Unknown Rx Hydroxychloroquine [Plaquenil] 200 mg PO QDAY tablet 02/16/19 Unknown Rx Metoprolol [Lopressor TAB] 25 mg PO BID tablet 02/16/19 Unknown Rx NIFEdipine XL [Procardia Xl] 60 mg PO QDAY tablet 02/16/19 Unknown Rx Ondansetron [Zofran ODT TAB] 8 mg PO Q8H PRN tab.rapdis 02/16/19 Unknown Rx Sevelamer Carbonate [Renvela] 2,400 mg PO AC tablet 02/16/19 Unknown Rx Torsemide [Demadex] 100 mg PO BID tablet 02/16/19 Unknown Rx hydrALAZINE [Apresoline TAB] 50 mg PO Q8HR tablet 02/16/19 Unknown Rx oxyCODONE [roxiCODONE] 10 mg PO Q6H PRN tablet 02/16/19 Unknown Rx levoFLOXacin [Levaquin TAB] 500 mg PO Q48HR #3 tablet 04/24/19 Unknown Rx Allergies Allergy/AdvReac Type Severity Reaction Status Date / Time lisinopril Allergy Unknown Verified 02/06/19 20:59 metformin [From Glucophage] Allergy Diarrhea Verified 02/06/19 20:59 ED Review of Systems ROS: Stated complaint: POSSIBLE STROKE Other details as noted in HPI Constitutional: malaise Eyes: denies: eye discharge ENT: congestion Cardiovascular: chest pain, edema Gastrointestinal: denies: abdominal pain Genitourinary: denies: dysuria Musculoskeletal: arthralgia, myalgia Skin: denies: lesions Neurological: weakness Psychiatric: anxiety ED Past Medical Hx - Past Medical History Hx Hypertension: Yes Hx Congestive Heart Failure: No Hx Diabetes: No Hx Renal Disease: Yes (ESRD. Home hemodialysis) Hx Asthma: Yes (As a Child) Hx COPD: No Additional medical history: Renal Cancer (2019 removed) - Surgical History Additional Surgical History: kidney, tonsillectomy, left rotator cuff,knee. mitral valve replaced 03/01/19 @ [place] - Social History Smoking Status: Never Smoker - Medications Home Medications: Home Medications Medication Instructions Recorded Confirmed Last Taken Type Sevelamer Carbonate [Renvela] 2.4 gm PO TIDWM 02/07/19 04/02/19 Unknown History ALBUTEROL NEB's [Proventil 0.083% 2.5 mg IH Q4HRT PRN nebu 02/16/19 04/02/19 Unknown Rx NEBS] Acetaminophen [Acetaminophen TAB] 650 mg PO Q4H PRN tablet 02/16/19 04/02/19 Unknown Rx Calcitriol [Rocaltrol] 0.5 mcg PO BID capsule 02/16/19 04/02/19 Unknown Rx Cholecalciferol Vit D3 [Vitamin D3 2,000 unit PO BID tablet 02/16/19 04/02/19 Unknown Rx 1,000 UNIT TAB] Gabapentin [Neurontin] 300 mg PO BID capsule 02/16/19 04/02/19 Unknown Rx Hydroxychloroquine [Plaquenil] 200 mg PO QDAY tablet 02/16/19 04/02/19 Unknown Rx Metoprolol [Lopressor TAB] 25 mg PO BID tablet 02/16/19 04/02/19 Unknown Rx NIFEdipine XL [Procardia Xl] 60 mg PO QDAY tablet 02/16/19 04/02/19 Unknown Rx Ondansetron [Zofran ODT TAB] 8 mg PO Q8H PRN tab.rapdis 02/16/19 04/02/19 Unknown Rx Sevelamer Carbonate [Renvela] 2,400 mg PO AC tablet 02/16/19 04/02/19 Unknown Rx Torsemide [Demadex] 100 mg PO BID tablet 02/16/19 04/02/19 Unknown Rx hydrALAZINE [Apresoline TAB] 50 mg PO Q8HR tablet 02/16/19 04/02/19 Unknown Rx oxyCODONE [roxiCODONE] 10 mg PO Q6H PRN tablet 02/16/19 04/02/19 Unknown Rx levoFLOXacin [Levaquin TAB] 500 mg PO Q48HR #3 tablet 04/24/19 Unknown Rx ED Physical Exam - General Limitations: Physical Limitation General appearance: alert, anxious, obese - Head Head exam: Present: atraumatic, normocephalic - Eye Eye exam: Present: normal appearance, EOMI. Absent: nystagmus - ENT ENT exam: Present: normal exam, normal orophraynx, mucous membranes moist, normal external ear exam - Neck Neck exam: Present: normal inspection, full ROM. Absent: tenderness, meningismus - Respiratory Respiratory exam: Present: rales - Cardiovascular Cardiovascular Exam: Present: regular rate, normal rhythm, normal heart sounds, JVD. Absent: bradycardia, tachycardia, irregular rhythm, systolic murmur, diastolic murmur, rubs, gallop - GI/Abdominal GI/Abdominal exam: Present: soft. Absent: distended, tenderness, guarding, rebound, rigid, pulsatile mass - Rectal Rectal exam: Present: deferred - Extremities Exam Extremities exam: Present: normal inspection, pedal edema, other (2+ pulses noted in the bilateral upper extremities. The compartments are soft. Left uppe r extremity fistula noted, with no redness, pus or streaking). Absent: calf tenderness - Back Exam Back exam: Present: normal inspection. Absent: tenderness, paraspinal tenderness, vertebral tenderness - Neurological Exam Neurological exam: Present: alert, oriented X3, motor sensory deficit (there is initially 4 out of 5 strength right arm, and right leg. There is no facial droop. The tongue is midline. Extraocular movements are intact bilaterally.), other ( Patient subsequently develops 5 out of 5 strength right arm, right leg, left arm, left leg.) - Psychiatric Psychiatric exam: Present: anxious - Skin Skin exam: Present: warm, dry, intact, normal color. Absent: rash ED Course Vital Signs 04/24/19 04/24/19 04/24/19 16:12 16:46 17:00 Temperature 98.9 F Pulse Rate 90 86 82 Respiratory 24 25 H 23 Rate Blood Pressure 121/64 121/64 121/65 O2 Sat by Pulse 88 99 100 Oximetry 04/24/19 04/24/19 04/24/19 17:16 17:26 17:30 Temperature Pulse Rate 83 82 79 Respiratory 20 23 15 Rate Blood Pressure 125/69 119/66 119/66 O2 Sat by Pulse 100 100 100 Oximetry 04/24/19 04/24/19 04/24/19 17:46 18:00 19:19 Temperature Pulse Rate 77 82 Respiratory 16 16 22 Rate Blood Pressure 120/61 120/60 O2 Sat by Pulse 100 98 100 Oximetry ED Medical Decision Making - Lab Data Result diagrams: 04/24/19 16:44 04/24/19 16:44 Vital Signs 04/24/19 04/24/19 16:12 17:26 Temperature 98.9 F Pulse Rate 90 82 Respiratory 24 23 Rate Blood Pressure 121/64 119/66 O2 Sat by Pulse 88 100 Oximetry Lab Results 04/24/19 04/24/19 04/24/19 Range/Units 16:44 16:44 16:44 WBC 6.0 (4.5-11.0) K/mm3 RBC 2.23 L (3.65-5.03) M/mm3 Hgb 6.8 L (11.8-15.2) gm/dl Hct 20.7 L (35.5-45.6) % MCV 93 (84-94) fl MCH 31 (28-32) pg MCHC 33 (32-34) % RDW 19.1 H (13.2-15.2) % Plt Count 125 L (140-440) K/mm3 Lymph % (Auto) 8.9 L (13.4-35.0) % Hopkins % (Auto) 8.6 H (0.0-7.3) % Eos % (Auto) 2.9 (0.0-4.3) % Baso % (Auto) 1.0 (0.0-1.8) % Lymph # 0.5 L (1.2-5.4) K/mm3 Hopkins # 0.5 (0.0-0.8) K/mm3 Eos # 0.2 (0.0-0.4) K/mm3 Baso # 0.1 (0.0-0.1) K/mm3 Seg Neutrophils % 78.6 H (40.0-70.0) % Seg Neutrophils # 4.7 (1.8-7.7) K/mm3 PT 15.3 H (12.2-14.9) Sec. INR 1.24 H (0.87-1.13) APTT 35.3 (24.2-36.6) Sec. Thrombin Time 15.2 (15.1-19.6) Sec. Sodium 135 L (137-145) mmol/L Potassium 4.7 (3.6-5.0) mmol/L Chloride 91.2 L (98-107) mmol/L Carbon Dioxide 27 (22-30) mmol/L Anion Gap 22 mmol/L BUN 49 H (9-20) mg/dL Creatinine 6.9 H (0.8-1.5) mg/dL Estimated GFR 10 ml/min BUN/Creatinine Ratio 7 % Glucose 141 H (75-100) mg/dL Calcium 9.2 (8.4-10.2) mg/dL Magnesium (1.7-2.3) mg/dL Total Creatine Kinase (55-170) units/L Troponin T 0.627 H* (0.00-0.029) ng/mL NT-Pro-B Natriuret Pep (0-900) pg/mL Triglycerides 43 (2-149) mg/dL Cholesterol 128 (50-199) mg/dL LDL Cholesterol Direct 47 L (50-130) mg/dL HDL Cholesterol 75 H (40-59) mg/dL Cholesterol/HDL Ratio 1.70 % 04/24/19 Range/Units 16:44 WBC (4.5-11.0) K/mm3 RBC (3.65-5.03) M/mm3 Hgb (11.8-15.2) gm/dl Hct (35.5-45.6) % MCV (84-94) fl MCH (28-32) pg MCHC (32-34) % RDW (13.2-15.2) % Plt Count (140-440) K/mm3 Lymph % (Auto) (13.4-35.0) % Hopkins % (Auto) (0.0-7.3) % Eos % (Auto) (0.0-4.3) % Baso % (Auto) (0.0-1.8) % Lymph # (1.2-5.4) K/mm3 Hopkins # (0.0-0.8) K/mm3 Eos # (0.0-0.4) K/mm3 Baso # (0.0-0.1) K/mm3 Seg Neutrophils % (40.0-70.0) % Seg Neutrophils # (1.8-7.7) K/mm3 PT (12.2-14.9) Sec. INR (0.87-1.13) APTT (24.2-36.6) Sec. Thrombin Time (15.1-19.6) Sec. Sodium (137-145) mmol/L Potassium (3.6-5.0) mmol/L Chloride (98-107) mmol/L Carbon Dioxide (22-30) mmol/L Anion Gap mmol/L BUN (9-20) mg/dL Creatinine (0.8-1.5) mg/dL Estimated GFR ml/min BUN/Creatinine Ratio % Glucose (75-100) mg/dL Calcium (8.4-10.2) mg/dL Magnesium 1.60 L (1.7-2.3) mg/dL Total Creatine Kinase 109 (55-170) units/L Troponin T (0.00-0.029) ng/mL NT-Pro-B Natriuret Pep 41464 H (0-900) pg/mL Triglycerides (2-149) mg/dL Cholesterol (50-199) mg/dL LDL Cholesterol Direct (50-130) mg/dL HDL Cholesterol (40-59) mg/dL Cholesterol/HDL Ratio % - EKG Data -: EKG Interpreted by Al EKG shows normal: sinus rhythm Rate: normal - EKG Data 04/24/19 18:59 This is a normal sinus, 82 beats minute, normal axis, QTC prolonged, H enlargement, this is an abnormal EKG, this EKG is not consistent with an ST elevation myocardial infarction - Radiology Data Radiology results: report reviewed, image reviewed Noncontrast CT scan of the brain is negative for acute disease. Chronic findings noted. X-ray of the chest shows right-sided pleural effusion Critical Care Time: Yes Critical care time in (mins) excluding proc time.: 35 Critical care attestation.: If time is entered above; I have spent that time in minutes in the direct care of this critically ill patient, excluding procedure time. ED Disposition Clinical Impression: Stroke, Chest pain, Elevated troponin, ESRD (end stage renal disease) on dialysis, End stage renal disease Disposition: DC-07 LEFT AGAINST MED ADVICE Is pt being admited?: No Does the pt Need Aspirin: No Condition: Undetermined Instructions: Chest Pain (ED) Additional Instructions: As we discussed, you have left the hospital/emergency room AGAINST MEDICAL ADVICE. By leaving, you risked , disability, paralysis, permanent loss of quality of life. The ER is open 24 hours a day, 7 days a week. It never closes. Please return to the emergency room right away if and when you change your mind. If you decide not to return to the emergency room, please follow-up with the listed physician referrals as soon as possible. Prescriptions: levoFLOXacin [Levaquin TAB] 500 mg PO Q48HR #3 tablet Referrals: CHANG ORELLANA MD [Staff Physician] - 3-5 Days SPENCER CLARK MD [Staff Physician] - 3-5 Days YASSINE JONES MD [Staff Physician] - 3-5 Days Forms: AMA Form
[2019-04-24 17:51] LABS: Chol/HDL Ratio 1.7 %
[2019-04-24] MEDS ORDERED: VERSED IV NR (18:00)
[2019-04-24] MEDS ORDERED: HYDROGEN PEROXIDE ONE (18:21)
--- NOTE | 2019-04-24 18:25 | XRay Report ---
PROCEDURE: XR CHEST 1V AP TECHNIQUE: Chest radiograph single view. HISTORY: cp sob COMPARISONS: Comparison is April 02, 2019 . FINDINGS: Cardiac silhouette is prominent in size. There is cardiac valve prosthesis. Sternotomy wires noted Bilateral pleural effusions again noted is appears slightly increased in size. There is now more foca l increased parenchymal density within the right lower lobe distribution likely reflecting atelectasi s and/or infiltrate. Pulmonary vasculature is prominent. IMPRESSION: Findings most consistent with infiltrate with probable atelectasis/infiltrate now superim posed in the right lower lobe Cardiomegaly with cardiac valve prosthesis This document is electronically signed by Brady Dominguez MD., April 24 2019 06:24:23 PM ET
[2019-04-24] MEDS ORDERED: LASIX 100 MG in NACL 0.9% 50 ML IV ONE (18:30)
[2019-04-24] MEDS ORDERED: LEVAQUIN PO ONE (19:09)
[2019-04-24] MEDS ORDERED: HYDROGEN PEROXIDE TP ONE (19:46)
[2019-04-24 19:47] VITALS: BP 120/60
== END 2019-04-24 19:54 | disposition left against medical advice (07) ==
LOC: ED 16:09
DX: I63.9 Cerebral infarction, unspecified (principal); I12.0 Hypertensive chronic kidney disease with stage 5 chronic kidney disease or end stage renal disease; N18.6 End stage renal disease; Z99.2 Dependence on renal dialysis; J45.909 Unspecified asthma, uncomplicated; Z85.528 Personal history of other malignant neoplasm of kidney; Z98.890 Other specified postprocedural states; Z79.899 Other long term (current) drug therapy; Z88.8 Allergy status to other drugs, medicaments and biological substances
CPT/HCPCS: 36415; 70450; 71045; 80048; 80061; 82550; 83735; 83880; 84484; 85025; 85610; 85670; 85730; 93005; 93010; 96374; 99291; J1940; 99285

== ENCOUNTER 2019-05-26 17:18 | Emergency (ER) | payer OTHER ==
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
[2019-05-26 18:59] LABS: Basophils # (Auto) 0.1 K/mm3 (0.0-0.1); Eosinophils # (Auto) 0.1 K/mm3 (0.0-0.4); Hemoglobin 6.8 gm/dl (11.8-15.2); Lymphocytes # (Auto) 0.5 K/mm3 (1.2-5.4); Mean Corpuscular HGB Conc 35 % (32-34); Mean Corpuscular Volume 94 fl (84-94); Monocytes # (Auto) 0.5 K/mm3 (0.0-0.8); Monocytes % (Auto) 7.5 % (0.0-7.3); Platelet Count 123 K/mm3 (140-440); Red Blood Count 2.06 M/mm3 (3.65-5.03); Red Cell Distribution Width 19.9 % (13.2-15.2)
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
[2019-05-26 19:02] LABS: Hematocrit 19.4 % (35.5-45.6)
--- NOTE | 2019-05-26 19:02 | XRay Report ---
CLINICAL DATA: Trauma TECHNICAL DATA: AP, obliques and lateral views of the knee. FINDINGS: The bone mineralization is normal. There is normal alignment of the knee. There is no evidence of fra cture or dislocation. There is no significant joint effusion. The soft tissues are normal. IMPRESSION: No evidence of fracture or dislocation. Signer Name: Bon Crouch MD Signed: 05/26/2019 6:58 PM Workstation Name: [id number]
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
--- NOTE | 2019-05-26 19:03 | XRay Report ---
CLINICAL DATA: Trauma TECHNICAL DATA: Two views were obtained, AP and lateral. FINDINGS: The soft tissues are normal. Bone mineralization is normal. There is no acute fracture or dislocation . The visualized joint spaces are normal. IMPRESSION: No acute radiographic abnormality. Signer Name: Bon Crouch MD Signed: 05/26/2019 6:59 PM Workstation Name: [id number]
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
[2019-05-26] MEDS ORDERED: LASIX IV ONE (19:18)
[2019-05-26 19:19] LABS: Albumin 3.5 g/dL (3.9-5); Calcium 9.7 mg/dL (8.4-10.2)
[2019-05-26 20:29] VITALS: BP 137/70
== END 2019-05-26 19:51 | disposition home or self-care (01) ==
LOC: ED 17:18
DX: S00.93XA Contusion of unspecified part of head, initial encounter (principal); S10.93XA Contusion of unspecified part of neck, initial encounter; S20.211A Contusion of right front wall of thorax, initial encounter; S70.01XA Contusion of right hip, initial encounter; D64.89 Other specified anemias; J90 Pleural effusion, not elsewhere classified; I12.0 Hypertensive chronic kidney disease with stage 5 chronic kidney disease or end stage renal disease; N18.6 End stage renal disease; J45.909 Unspecified asthma, uncomplicated; Z99.2 Dependence on renal dialysis; Z90.89 Acquired absence of other organs; Z79.899 Other long term (current) drug therapy; Z88.6 Allergy status to analgesic agent; Z98.890 Other specified postprocedural states; Z85.528 Personal history of other malignant neoplasm of kidney; V49.9XXA Car occupant (driver) (passenger) injured in unspecified traffic accident, initial encounter; Y93.89 Activity, other specified; Y92.410 Unspecified street and highway as the place of occurrence of the external cause; Y99.8 Other external cause status
CPT/HCPCS: 36415; 70450; 71250; 72125; 74176; 80053; 85025